=== PATIENT | female | born 1980 ===

== ENCOUNTER 2021-06-04 11:54 | Outpatient (REF) | payer OTHER, SELFPAY ==
[2021-06-04 12:58] LABS: Influenza A PCR NEGATIVE (Negative); Influenza B PCR NEGATIVE (Negative); Resp Syncy Virus RNA Qual PCR NEGATIVE (Negative); SARS COV2 PCR INHOUSE NEGATIVE (Negative)
== END 2021-06-04 11:55 | disposition home or self-care (01) ==
LOC: HO.LNP 11:54
PROVIDERS: Visit Provider Internal Medicine
DX: Z20.822 Contact with and (suspected) exposure to COVID-19 (principal); R43.9 Unspecified disturbances of smell and taste
CPT/HCPCS: 0241U

== ENCOUNTER 2021-08-27 08:49 | Outpatient (REF) | payer OTHER, SELFPAY ==
[2021-08-27 11:48] LABS: Hematocrit 41.7 % (37.0-47.0); Hemoglobin 14.3 g/dl (12.0-16.0); Mean Corpuscular HGB Conc 34.3 g/dl (31.0-35.0); Mean Corpuscular Hemoglobin 30.2 pg (27.0-33.0); Mean Corpuscular Volume 88.2 fL (80.0-98.0); Mean Platelet Volume 10.3 fL (9.4-12.3); Platelet Count 258 X10*3/uL (160-400); Red Blood Count 4.73 X10*6/uL (4.20-5.50); Red Cell Distribution Width 12.7 % (11.0-16.0); White Blood Count 8.1 X10*3/uL (4.8-10.8)
[2021-08-27 12:08] LABS: Alanine Aminotransferase 23 U/L (0-31); Alkaline Phosphatase 26 U/L (39-117); Anion Gap 13 (12-20); Aspartate Amino Transferase 23 U/L (5-31); Bilirubin Total 0.6 mg/dL (0.0-1.0); Blood Urea Nitrogen 15 mg/dL (9-16); Calcium 9.4 mg/dL (8.4-10.2); Carbon Dioxide 27 mmol/L (22-29); Chloride 102 mmol/L (96-108); Cholesterol 172 mg/dL; Estimated Glomerular Filt Rate > 60; Glucose Fasting 93 mg/dL (60-99); HDL Cholesterol 36 mg/dL; LDL Cholesterol Calculated 109 mg/dl; Potassium 3.9 mmol/L (3.3-5.1); Sodium 138 mmol/L (135-145); Triglycerides 139 mg/dL
[2021-08-27 12:22] LABS: Creatinine Urine 101.53 mg/dL; Microalbum/Creatinine Ratio Ur 78.7 ug/mg cr
[2021-08-27 12:36] LABS: Appearance Urine CLEAR; Color Urine YELLOW; Glucose Urine UA NEG (NEG); Leukocyte Esterase Urine NEG (NEG); Nitrite Urine NEG (NEG); PH 6.5 (5.0-8.0); Urine Blood NEG (NEG); Urine Ketones NEG (NEG); Urine Protein TRACE MG/DL (NEG-TRACE)
[2021-08-30 14:16] LABS: Anti Nuclear Antibody Pattern Nuclear, Speckled; Anti Nuclear Antibody Screen POSITIVE (NEGATIVE); Anti Nuclear Antibody Titer 1:40 titer
== END 2021-08-27 08:50 | disposition home or self-care (01) ==
LOC: HO.HMGCLDS 08:49
PROVIDERS: PCP Internal Medicine; Visit Provider Internal Medicine
DX: Z00.00 Encounter for general adult medical examination without abnormal findings (principal); I10 Essential (primary) hypertension
CPT/HCPCS: 36415; 80053; 80061; 81003; 82043; 84443; 85027; 86038; 86039

== ENCOUNTER 2021-11-04 08:58 | Outpatient (REF) | payer OTHER, SELFPAY ==
--- NOTE | ~2021-11-04 | US_ITS ---
EXAMINATION: US RETROPERITONEAL LIMITED (RENAL ONLY) CLINICAL INFORMATION: Hypertension. COMPARISON: None TECHNIQUE: Routine grayscale and color Doppler imaging of kidneys is performed. FINDINGS: RIGHT KIDNEY: 11.0 x 3.8 x 5.5 cm (SAG x AP x TRV). The kidney is normal in size, contour, and echogenicity. Renal cortical thickness is normal. No calculi or focal parenchymal lesions. No hydronephrosis. LEFT KIDNEY: 11.1 x 4.9 x 4.8 cm (SAG x AP x TRV). The kidney is normal in size, contour, and echogenicity. Renal cortical thickness is normal. No calculi or focal parenchymal lesions. No hydronephrosis. ON RENAL DOPPLER EXAM: RIGHT KIDNEY: The renal artery velocity proximal segment measures 116 cm/2, midsegment measures 122 cm/2 and distal segment measures 176 cm/second. Average resistive index is less than 0.7. The renal aortic ratio cannot be calculated due to mildly elevated mid aortic velocity of 153 cm/2. LEFT KIDNEY: The renal artery velocity proximal segment measures 138 cm/2, mid segment measures 140 cm/2 and distal segment measures 167 cm/2. The resistive index is less than 0.7. Renal aortic ratio cannot be calculated due to elevated mid aortic velocity. US/US renal BI IMPRESSION: 1. Normal renal ultrasound. 2. Normal Doppler exam both kidneys. No evidence of renal artery stenosis suspected.
--- NOTE | ~2021-11-04 | US_ITS ---
EXAMINATION: US RETROPERITONEAL LIMITED (RENAL ONLY) CLINICAL INFORMATION: Hypertension. COMPARISON: None TECHNIQUE: Routine grayscale and color Doppler imaging of kidneys is performed. FINDINGS: RIGHT KIDNEY: 11.0 x 3.8 x 5.5 cm (SAG x AP x TRV). The kidney is normal in size, contour, and echogenicity. Renal cortical thickness is normal. No calculi or focal parenchymal lesions. No hydronephrosis. LEFT KIDNEY: 11.1 x 4.9 x 4.8 cm (SAG x AP x TRV). The kidney is normal in size, contour, and echogenicity. Renal cortical thickness is normal. No calculi or focal parenchymal lesions. No hydronephrosis. ON RENAL DOPPLER EXAM: RIGHT KIDNEY: The renal artery velocity proximal segment measures 116 cm/2, midsegment measures 122 cm/2 and distal segment measures 176 cm/second. Average resistive index is less than 0.7. The renal aortic ratio cannot be calculated due to mildly elevated mid aortic velocity of 153 cm/2. LEFT KIDNEY: The renal artery velocity proximal segment measures 138 cm/2, mid segment measures 140 cm/2 and distal segment measures 167 cm/2. The resistive index is less than 0.7. Renal aortic ratio cannot be calculated due to elevated mid aortic velocity. US/US renal doppler IMPRESSION: 1. Normal renal ultrasound. 2. Normal Doppler exam both kidneys. No evidence of renal artery stenosis suspected.
== END 2021-11-04 08:59 | disposition home or self-care (01) ==
LOC: HO.US 08:58
PROVIDERS: Visit Provider Internal Medicine
DX: I10 Essential (primary) hypertension (principal)
CPT/HCPCS: 76775; 93975

== ENCOUNTER 2021-11-05 09:19 | Outpatient (REF) | payer OTHER, SELFPAY ==
[2021-11-05 11:32] LABS: Appearance Urine CLEAR; Color Urine YELLOW; Glucose Urine UA NEG (NEG); Leukocyte Esterase Urine 2+ (NEG); Nitrite Urine NEG (NEG); Specific Gravity - Urine <= 1.005 (1.005-1.025); UACC Culture Trigger YES; Urine Blood NEG (NEG); Urine Ketones NEG (NEG); Urine Protein NEG (NEG-TRACE)
[2021-11-05 11:49] LABS: Anion Gap 10 (12-20); Blood Urea Nitrogen 12 mg/dL (9-16); Calcium 8.9 mg/dL (8.4-10.2); Carbon Dioxide 24 mmol/L (22-29); Chloride 105 mmol/L (96-108); Estimated Glomerular Filt Rate > 60; Glucose Random 91 mg/dL (60-115); Potassium 4.2 mmol/L (3.3-5.1); Sodium 135 mmol/L (135-145)
[2021-11-05 11:54] LABS: Bacteria Urine TRACE /LPF; RBC Urine 0 /HPF (0); Squamous Epithelial Cell Urine 1+ /LPF
== END 2021-11-05 09:20 | disposition home or self-care (01) ==
LOC: HO.HMGCLDS 09:19
PROVIDERS: Visit Provider Internal Medicine
DX: I10 Essential (primary) hypertension (principal); R30.0 Dysuria
CPT/HCPCS: 36415; 80048; 81001; 87086

== ENCOUNTER 2022-03-31 10:43 | Outpatient (REF) | payer OTHER, SELFPAY ==
[2022-03-31 14:07] LABS: Alanine Aminotransferase 21 U/L (0-31); Albumin Level 4.1 g/dL (3.5-5.0); Alkaline Phosphatase 20 U/L (39-117); Anion Gap 14 (12-20); Aspartate Amino Transferase 30 U/L (5-31); Bilirubin Total 0.5 mg/dL (0.0-1.0); Blood Urea Nitrogen 13 mg/dL (9-16); C Reactive Protein 0.51 mg/dL (< or = 0.50); Calcium 9.3 mg/dL (8.4-10.2); Carbon Dioxide 26 mmol/L (22-29); Chloride 102 mmol/L (96-108); Estimated Glomerular Filt Rate > 60; Glucose Fasting 88 mg/dL (60-99); Potassium 4.4 mmol/L (3.3-5.1); Sodium 138 mmol/L (135-145); Total Protein 7.9 g/dL (6.5-8.0)
[2022-03-31 14:18] LABS: Rheumatoid Factor < 15.0 IU/mL (<15.0)
[2022-04-04 16:33] LABS: Cyclic Citrullinated Peptide <16 UNITS
[2022-04-05 11:27] LABS: Complement C3 161 mg/dL (83-193)
[2022-04-10 12:47] LABS: Anti Nuclear Antibody Screen POSITIVE (NEGATIVE)
== END 2022-03-31 10:44 | disposition home or self-care (01) ==
LOC: HO.HMGCLDS 10:43
PROVIDERS: PCP Internal Medicine; Visit Provider Internal Medicine
DX: I10 Essential (primary) hypertension (principal); M19.90 Unspecified osteoarthritis, unspecified site
CPT/HCPCS: 36415; 80053; 86038; 86039; 86140; 86160; 86200; 86431

== ENCOUNTER 2022-05-06 07:47 | Outpatient (REF) | payer OTHER, SELFPAY ==
--- NOTE | ~2022-05-06 | MM_ITS ---
EXAMINATION: BONE DENSITOMETRY CLINICAL INDICATION: Other disorders of phosphorus metabolism. COMPARISON: None (current study represents initial baseline exam). TECHNIQUE: Using a YOHO DXA System (software version: 13.1) manufactured by [employer], dual-energy x-ray absorptiometry was performed of the lumbar spine and left hip. The images are of good technical quality. Based on ISCD (International Society for Clinical Densitometry) standards of reporting, Z-scores instead of T-scores are reported in this premenopausal woman. Summary results are attached. FINDINGS: AP SPINE L1-L4: BMD 1.209 g/cm2, T-score 0.2, Z-score -0.3, Z-score within expected range for age. LEFT FEMUR, NECK: BMD 0.726 g/cm2, T-score -2.2, Z-score -2.1, Z-score below expected range for age. LEFT FEMUR, TOTAL: BMD 0.854 g/cm2, T-score -1.2, Z-score -1.3, Z-score within expected range for age. IDENTIFIED RISK FACTORS: None listed. HISTORY OF FRACTURE: None listed. MEDICATIONS: Calcium supplements or multivitamin, vitamin D. MM/XR DEXA axial skeleton IMPRESSION: 1. DIAGNOSIS: Based on the lowest Z-score value of -2.1 in the femoral neck, the patient's bone density is below the expected range for age. 2. 10-YEAR FRACTURE RISK PREDICTION, FRAX: Not performed in this perimenopausal patient. 3. Treatment Recommendations: NOF guidelines recommend consideration for treatment in postmenopausal women and men age 50 and older presenting with the following: -A hip or vertebral (clinical or morphometric) fracture. -T-score less than or equal to -2.5 at the femoral neck or spine after appropriate evaluation to exclude secondary causes. -Low bone mass at the hip or spine and a 10-year fracture probability by FRAX of greater than or equal to 3% for hip fracture or greater than or equal to 20% for major osteoporotic fracture based on the [place] adapted WHO algorithm. 4. Other Recommendations: All treatment decisions require clinical judgment and consideration of individual patient factors, including patient preferences, comorbidities, previous drug use, risk factors not captured in the FRAX model (e.g. frailty, falls, vitamin D deficiency, increased bone turnover, interval significant decline in bone density) and possible under or overestimation of fracture risk by FRAX. Additional medical evaluation for secondary cause of low bone mineral density may be appropriate. FUTURE SCAN RECOMMENDATION: People with diagnosed cases of osteoporosis or at high risk for fracture should have regular bone mineral density tests. For patients eligible for Medicare, routine testing is allowed once every 2 years. The testing frequency can be increased to one year for patients who have rapidly progressing disease, those who are receiving or discontinuing medical therapy to restore bone mass, or have additional risk factors.
--- NOTE | ~2022-05-06 | XR_ITS ---
EXAMINATION: BILATERAL HAND AND WRIST X-RAY CLINICAL INFORMATION: Pain COMPARISON: None TECHNIQUE: 4 views of each hand and wrist FINDINGS: Right: Bone alignment is normal. No fracture or dislocation is seen. Joint spaces are normal. Soft tissues are normal. Left: Bone alignment is normal. No fracture or dislocation is seen. Joint spaces are normal. Soft tissues are normal. XR/XR hand wrist RT IMPRESSION: Unremarkable exam.
--- NOTE | ~2022-05-06 | XR_ITS ---
EXAMINATION: BILATERAL HAND AND WRIST X-RAY CLINICAL INFORMATION: Pain COMPARISON: None TECHNIQUE: 4 views of each hand and wrist FINDINGS: Right: Bone alignment is normal. No fracture or dislocation is seen. Joint spaces are normal. Soft tissues are normal. Left: Bone alignment is normal. No fracture or dislocation is seen. Joint spaces are normal. Soft tissues are normal. XR/XR hand wrist LT IMPRESSION: Unremarkable exam.
[2022-05-06 11:17] LABS: MANUAL DIFF FLAG NO
[2022-05-06 11:24] LABS: Basophils Percent Auto 0.2 % (0-2); Eosinophils Absolute Auto 0.3 X10*3/uL (0.0-0.4); Eosinophils Percent Auto 4.1 % (0-4); Hematocrit 39.1 % (37.0-47.0); Hemoglobin 13.3 g/dl (12.0-16.0); Imm Gran Abs Auto 0.03 X10*3/uL (0.00-0.03); Imm Gran Pct Auto 0.4 % (0.0-0.4); Lymphocytes Absolute Auto 2.3 X10*3/uL (1.2-4.9); Lymphocytes Percent Auto 28.1 % (20-40); Mean Corpuscular Hemoglobin 30.4 pg (27.0-33.0); Mean Corpuscular Volume 89.5 fL (80.0-98.0); Mean Platelet Volume 10.6 fL (9.4-12.3); Monocytes Absolute Auto 0.6 X10*3/uL (0.1-1.2); Monocytes Percent Auto 7.1 % (2-11); Neutrophils Percent Auto 60.1 % (45-73); Platelet Count 253 X10*3/uL (160-400); Red Blood Count 4.37 X10*6/uL (4.20-5.50); Red Cell Distribution Width 12.7 % (11.0-16.0); White Blood Count 8.3 X10*3/uL (4.8-10.8)
[2022-05-06 11:43] LABS: Alanine Aminotransferase 19 U/L (0-31); Albumin Level 3.9 g/dL (3.5-5.0); Alkaline Phosphatase 20 U/L (39-117); Anion Gap 13 (12-20); Aspartate Amino Transferase 18 U/L (5-31); Bilirubin Total 0.5 mg/dL (0.0-1.0); Blood Urea Nitrogen 13 mg/dL (9-16); C Reactive Protein 0.72 mg/dL (< or = 0.50); Calcium 9.4 mg/dL (8.4-10.2); Carbon Dioxide 25 mmol/L (22-29); Chloride 104 mmol/L (96-108); Estimated Glomerular Filt Rate > 60; Glucose Random 97 mg/dL (60-115); Potassium 4.2 mmol/L (3.3-5.1); Sodium 138 mmol/L (135-145); Total Protein 7.4 g/dL (6.5-8.0)
[2022-05-06 11:52] LABS: Thyroid Stimulating Hormone 2.52 uIU/mL (0.32-4.0)
[2022-05-06 12:02] LABS: Erythrocyte Sedimentation Rate 13 MM/HR (0-20)
[2022-05-06 12:12] LABS: Creatinine Urine 132.34 mg/dL; Protein/Creatinine Ratio, Ur 0.07 (<0.2); Total Protein Urine Random 9 mg/dL (<12)
[2022-05-09 18:17] LABS: Thyroglobulin Antibodies <1 IU/mL (< or = 1); Thyroid Peroxidase Antibodies 2 IU/mL (<9)
[2022-05-09 18:56] LABS: IgA 428 mg/dL (47-310); IgG 1819 mg/dL (600-1640); IgM 61 mg/dL (50-300)
[2022-05-09 21:07] LABS: Prot Elec - Albumin 3.9 g/dL (3.8-4.8); Prot Elec - Alpha1 0.3 g/dL (0.2-0.3); Prot Elec - Alpha2 0.6 g/dL (0.5-0.9); Prot Elec - Beta 1 0.5 g/dL (0.4-0.6); Prot Elec - Beta 2 0.5 g/dL (0.2-0.5); Prot Elec - Gamma 1.6 g/dL (0.8-1.7); Prot Elec - Total Protein 7.3 g/dL (6.1-8.1)
[2022-05-10 07:27] LABS: Calcium (PTHI) 8.8 mg/dL (8.6-10.2)
[2022-05-10 12:11] LABS: Anti DNA DS Antibody 19 IU/mL; Antibody to SS-A Antigen <1.0 NEG AI (<1.0 NEG); Antibody to SS-B Antigen <1.0 NEG AI (<1.0 NEG); SM/Ribonucleoprotein Ab <1.0 NEG AI (<1.0 NEG); Smith Protein <1.0 NEG AI (<1.0 NEG)
[2022-05-10 13:07] LABS: Mitochondrial Antibodies NEGATIVE (NEGATIVE)
[2022-05-10 13:11] LABS: Smooth Muscle Antibody <20 U (<20)
[2022-05-10 23:33] LABS: Alkaline Phosphatase Bone 2.5 mcg/L (5.0-18.8)
[2022-05-10 23:47] LABS: Beta-2 Glycoprotein IgA <2.0 U/mL (<20.0); Beta-2 Glycoprotein IgG <2.0 U/mL (<20.0); Beta-2 Glycoprotein IgM <2.0 U/mL (<20.0)
[2022-05-11 05:52] LABS: Aldolase 3.9 U/L (<=8.1)
[2022-05-11 12:23] LABS: Vitamin B6 31.4 ng/mL (2.1-21.7)
[2022-05-11 13:56] LABS: Liver Kidney Microsomal Ab <=20.0 U (<=20.0)
[2022-05-11 15:52] LABS: Vitamin D 25-OH, D2 <4 ng/mL; Vitamin D 25-OH, D3 34 ng/mL; Vitamin D 25-OH, Total 34 ng/mL (30-100)
[2022-05-11 17:06] LABS: VITAMIN D (1,25 OH) D3 81 pg/mL; Vit D (1,25-Dihydroxy) Total 81 pg/mL (18-72); Vitamin D (1,25 OH) D2 <8 pg/mL
[2022-05-12 06:05] LABS: Cardiolipin IgG Ab <2.0 GPL-U/mL; Cardiolipin IgM Ab <2.0 MPL-U/mL
== END 2022-05-06 07:48 | disposition home or self-care (01) ==
LOC: HO.MAMMO 07:47
PROVIDERS: PCP Internal Medicine; Visit Provider Student in an Organized Health Care Education/Training Program
DX: Z13.21 Encounter for screening for nutritional disorder (principal); R76.8 Other specified abnormal immunological findings in serum; E83.39 Other disorders of phosphorus metabolism; M25.542 Pain in joints of left hand; M25.541 Pain in joints of right hand
CPT/HCPCS: 36415; 73110; 73130; 77080; 80053; 82085; 82306; 82550; 82652; 82784; 83735; 83970; 84075; 84100; 84156; 84165; 84207; 84443; 85025; 85652; 86015; 86140; 86146; 86147; 86225; 86235; 86255; 86256; 86334; 86376; 86800

== ENCOUNTER 2022-06-20 11:43 | Outpatient (REF) | payer OTHER, SELFPAY ==
--- NOTE | ~2022-06-20 | XR_ITS ---
EXAMINATION: XR FOOT, LEFT CLINICAL INFORMATION: Pain. COMPARISON: None TECHNIQUE: AP, lateral, and oblique views of the left foot. FINDINGS: Bony alignment and mineralization are normal. No fracture, dislocation or left ankle joint effusion is seen. Boehler's angle is normal. There are tiny posterior and plantar calcaneal spurs. No focal soft tissue swelling, gas or foreign body is seen. XR/XR foot LT min 3V IMPRESSION: 1. No left ankle fracture, dislocation or effusion is noted. 2. There are tiny left calcaneal posterior plantar spurs.
== END 2022-06-20 11:44 | disposition home or self-care (01) ==
LOC: HO.XRAY 11:43
PROVIDERS: PCP Internal Medicine; Visit Provider Internal Medicine
DX: M79.672 Pain in left foot (principal)
CPT/HCPCS: 73630

== ENCOUNTER 2022-07-18 09:01 | Outpatient (REF) | payer OTHER, SELFPAY ==
--- NOTE | ~2022-07-18 | US_ITS ---
EXAMINATION: US THYROID CLINICAL INFORMATION: Nontoxic goiter, unspecified. COMPARISON: None TECHNIQUE: Linear transducer llamas-scale and color Doppler examination with attention to the region of the thyroid. FINDINGS: SIZE: Measurements of the thyroid lobes and nodules are given in sagittal, anteroposterior and transverse dimensions respectively. Right Thyroid Lobe: 4.11 x 1.01 x 1.12 cm, volume 2.42 mL. Parenchyma: The gland echotexture is homogeneous. Thyroid vascularity is normal. Left Thyroid Lobe: 4.02 x 1.03 x 1.46 cm, volume 3.17 mL. Parenchyma: The gland echotexture is homogeneous. Thyroid vascularity is normal. Isthmus: 0.42 cm in maximum AP dimension. Estimated total number of nodules greater than or equal to 1 cm: 0. Hand Potter nodules are described as follows: 1. Location: Right inferior. Size: 0.21 x 0.18 x 0.16 cm, volume 0.003 mL. Nodule characteristics: Composition: Cystic(0). ACR TI-RADS total points: 0 ACR TI-RADS category: 1 NODES: No lymphadenopathy is seen in the tissue surrounding the thyroid gland. US/US thyroid IMPRESSION: Normal ultrasound of the thyroid gland except for subcentimeter nonsuspicious small nodule right lobe. ACR TI-RADS RECOMMENDATION REFERENCE: Ultrasound-guided fine-needle aspiration, followup ultrasound, no further follow up. * TR1 (0 point) and TR 2 (2 points): No FNA or follow up. * TR3 (3 points): FNA if more than or equal to 2.5 cm in maximum dimension, followup ultrasound in 1, 3 and 5 years if 1.5 to 2.4 cm in maximum dimension. * TR4 (4-6 points): FNA if more than or equal to 1.5 cm in maximum dimension, followup ultrasound in 1, 2, 3 and 5 years if 1 to 1.4 cm in maximum dimension. * TR5 (more than or equal to 7 points): FNA if more than or equal to 1 cm in maximum dimension, followup ultrasound every year for 5 years if 0.5 to 0.9 cm in maximum dimension. * TR3, TR4 or TR5 nodules that are below the size threshold for followup receive no follow up.
== END 2022-07-18 09:02 | disposition home or self-care (01) ==
LOC: HO.HMGCX 09:01
PROVIDERS: PCP Internal Medicine; Visit Provider Internal Medicine
DX: E04.9 Nontoxic goiter, unspecified (principal)
CPT/HCPCS: 76536

== ENCOUNTER → 2022-07-22 12:01 | Outpatient (BNVA) | payer OTHER, SELFPAY | PROVIDERS: PCP Internal Medicine; Visit Provider Dietitian, Registered | DX: E66.9 Obesity, unspecified (principal); Z68.33 Body mass index [BMI] 33.0-33.9, adult | CPT/HCPCS: 97802 ==

== ENCOUNTER 2022-08-03 07:45 | Outpatient (REF) | payer OTHER, SELFPAY ==
[2022-08-03 11:16] LABS: MANUAL DIFF FLAG NO
[2022-08-03 11:25] LABS: Basophils Percent Auto 0.4 % (0-2); Eosinophils Absolute Auto 0.3 X10*3/uL (0.0-0.4); Eosinophils Percent Auto 3.7 % (0-4); Hematocrit 39.4 % (37.0-47.0); Hemoglobin 13.4 g/dl (12.0-16.0); Imm Gran Abs Auto 0.03 X10*3/uL (0.00-0.03); Imm Gran Pct Auto 0.3 % (0.0-0.4); Lymphocytes Absolute Auto 2.3 X10*3/uL (1.2-4.9); Lymphocytes Percent Auto 25.2 % (20-40); Mean Corpuscular Hemoglobin 30.3 pg (27.0-33.0); Mean Corpuscular Volume 89.1 fL (80.0-98.0); Mean Platelet Volume 10.4 fL (9.4-12.3); Monocytes Absolute Auto 0.7 X10*3/uL (0.1-1.2); Monocytes Percent Auto 7.9 % (2-11); Neutrophils Absolute Auto 5.7 x10*3/uL (2.0-8.3); Neutrophils Percent Auto 62.5 % (45-73); Platelet Count 242 X10*3/uL (160-400); Red Blood Count 4.42 X10*6/uL (4.20-5.50); Red Cell Distribution Width 12.6 % (11.0-16.0)
[2022-08-03 11:43] LABS: Appearance Urine Turbid; Color Urine Yellow; Glucose Urine UA Negative (Negative); Leukocyte Esterase Urine Negative (Negative); Nitrite Urine Negative (Negative); PH 5.5 (5.0-9.0); Specific Gravity - Urine 1.025 (1.005-1.025); Urine Blood Negative (Negative); Urine Ketones Negative (Negative); Urine Protein Negative (Neg-Trace)
[2022-08-03 11:47] LABS: Bacteria Urine None Seen (None Seen); Hyaline Casts Urine 0-2 /LPF (0-2); RBC Urine 0-2 /HPF (0-2); Squamous Epithelial Cell Urine 0-2 /HPF (0-2); WBC Urine 0-5 /HPF (0-5)
[2022-08-03 11:49] LABS: Alanine Aminotransferase 14 U/L (0-31); Albumin Level 4.1 g/dL (3.5-5.0); Alkaline Phosphatase 19 U/L (39-117); Anion Gap 11 (12-20); Aspartate Amino Transferase 20 U/L (5-31); Bilirubin Total 0.6 mg/dL (0.0-1.0); Blood Urea Nitrogen 17 mg/dL (9-16); C Reactive Protein 0.49 mg/dL (< or = 0.50); Calcium 9.1 mg/dL (8.4-10.2); Carbon Dioxide 25 mmol/L (22-29); Chloride 105 mmol/L (96-108); Estimated Glomerular Filt Rate > 60; Glucose Random 91 mg/dL (60-115); Potassium 4.2 mmol/L (3.3-5.1); Sodium 137 mmol/L (135-145); Total Protein 7.5 g/dL (6.5-8.0)
[2022-08-03 12:06] LABS: Erythrocyte Sedimentation Rate 8 MM/HR (0-20)
[2022-08-03 12:12] LABS: Creatinine Urine 155.58 mg/dL; Protein/Creatinine Ratio, Ur 0.06 (<0.2); Total Protein Urine Random 9 mg/dL (<12)
[2022-08-04 22:58] LABS: Complement C3 155 mg/dL (83-193)
[2022-08-06 04:44] LABS: Anti DNA DS Antibody 16 IU/mL
== END 2022-08-03 07:46 | disposition home or self-care (01) ==
LOC: HO.HMGCLDS 07:45
PROVIDERS: PCP Internal Medicine; Visit Provider Student in an Organized Health Care Education/Training Program
DX: M32.9 Systemic lupus erythematosus, unspecified (principal)
CPT/HCPCS: 36415; 80053; 81001; 84156; 85025; 85652; 86140; 86160; 86225

== ENCOUNTER → 2022-08-18 08:05 | Outpatient (BNVA) | payer OTHER, SELFPAY | PROVIDERS: PCP Internal Medicine; Visit Provider Student in an Organized Health Care Education/Training Program | DX: M32.9 Systemic lupus erythematosus, unspecified (principal) ==

== ENCOUNTER 2022-10-20 07:24 | Outpatient (REF) | payer OTHER, SELFPAY ==
[2022-10-20 11:25] LABS: MANUAL DIFF FLAG NO
[2022-10-20 11:46] LABS: Appearance Urine Clear; Color Urine Yellow; Glucose Urine UA Negative (Negative); Leukocyte Esterase Urine Trace (Negative); Nitrite Urine Negative (Negative); UMIC TRIGGER UA YES; Urine Blood Negative (Negative); Urine Ketones Negative (Negative); Urine Protein Negative (Neg-Trace)
[2022-10-20 11:50] LABS: Bacteria Urine None Seen (None Seen); Hyaline Casts Urine 0-2 /LPF (0-2); WBC Urine 0-5 /HPF (0-5)
[2022-10-20 12:03] LABS: Basophils Percent Auto 0.3 % (0-2); Eosinophils Absolute Auto 0.3 X10*3/uL (0.0-0.4); Eosinophils Percent Auto 3.5 % (0-4); Hematocrit 39.9 % (37.0-47.0); Hemoglobin 13.5 g/dl (12.0-16.0); Imm Gran Abs Auto 0.04 X10*3/uL (0.00-0.03); Imm Gran Pct Auto 0.4 % (0.0-0.4); Lymphocytes Absolute Auto 2.7 X10*3/uL (1.2-4.9); Lymphocytes Percent Auto 28.6 % (20-40); Mean Corpuscular HGB Conc 33.8 g/dl (31.0-35.0); Mean Corpuscular Hemoglobin 30.1 pg (27.0-33.0); Mean Corpuscular Volume 88.9 fL (80.0-98.0); Mean Platelet Volume 10.1 fL (9.4-12.3); Monocytes Absolute Auto 0.8 X10*3/uL (0.1-1.2); Monocytes Percent Auto 8.2 % (2-11); Neutrophils Absolute Auto 5.6 x10*3/uL (2.0-8.3); Platelet Count 244 X10*3/uL (160-400); Red Blood Count 4.49 X10*6/uL (4.20-5.50); Red Cell Distribution Width 12.6 % (11.0-16.0); White Blood Count 9.4 X10*3/uL (4.8-10.8)
[2022-10-20 16:03] LABS: Alanine Aminotransferase 14 U/L (0-31); Albumin Level 3.7 g/dL (3.5-5.0); Alkaline Phosphatase 18 U/L (39-117); Anion Gap 13 (12-20); Aspartate Amino Transferase 18 U/L (5-31); Bilirubin Total 0.3 mg/dL (0.0-1.0); Blood Urea Nitrogen 16 mg/dL (9-16); Calcium 8.9 mg/dL (8.4-10.2); Carbon Dioxide 24 mmol/L (22-29); Chloride 105 mmol/L (96-108); Cholesterol 147 mg/dL; Estimated Glomerular Filt Rate > 60; Glucose Fasting 91 mg/dL (60-99); HDL Cholesterol 40 mg/dL; LDL Cholesterol Calculated 85 mg/dl; Potassium 4.2 mmol/L (3.3-5.1); Sodium 138 mmol/L (135-145); Total Protein 6.8 g/dL (6.5-8.0); Triglycerides 110 mg/dL
[2022-10-20 16:10] LABS: TSH reflex Free T4 2.44 uIU/mL (0.32-4.0); Vitamin D 25-OH Total 29.9 ng/mL (>30)
== END 2022-10-20 07:25 | disposition home or self-care (01) ==
LOC: HO.HMGCLDS 07:24
PROVIDERS: PCP Internal Medicine; Visit Provider Internal Medicine
DX: Z00.00 Encounter for general adult medical examination without abnormal findings (principal); E55.9 Vitamin D deficiency, unspecified; I10 Essential (primary) hypertension
CPT/HCPCS: 36415; 80053; 80061; 81001; 82306; 84443; 85025

== ENCOUNTER 2022-12-15 11:02 | Outpatient (REF) | payer OTHER, SELFPAY ==
[2022-12-15 12:28] LABS: MANUAL DIFF FLAG NO
[2022-12-15 12:49] LABS: Basophils Percent Auto 0.3 % (0-2); Eosinophils Absolute Auto 0.2 X10*3/uL (0.0-0.4); Eosinophils Percent Auto 2.7 % (0-4); Hematocrit 40.3 % (37.0-47.0); Hemoglobin 13.9 g/dl (12.0-16.0); Imm Gran Abs Auto 0.03 X10*3/uL (0.00-0.03); Imm Gran Pct Auto 0.3 % (0.0-0.4); Lymphocytes Absolute Auto 2.4 X10*3/uL (1.2-4.9); Lymphocytes Percent Auto 26.6 % (20-40); Mean Corpuscular HGB Conc 34.5 g/dl (31.0-35.0); Mean Corpuscular Hemoglobin 30.6 pg (27.0-33.0); Mean Corpuscular Volume 88.8 fL (80.0-98.0); Mean Platelet Volume 10.1 fL (9.4-12.3); Monocytes Absolute Auto 0.7 X10*3/uL (0.1-1.2); Monocytes Percent Auto 8.3 % (2-11); Neutrophils Absolute Auto 5.5 x10*3/uL (2.0-8.3); Neutrophils Percent Auto 61.8 % (45-73); Platelet Count 247 X10*3/uL (160-400); Red Blood Count 4.54 X10*6/uL (4.20-5.50); Red Cell Distribution Width 12.8 % (11.0-16.0)
[2022-12-15 13:24] LABS: Alanine Aminotransferase 12 U/L (0-31); Albumin Level 4.1 g/dL (3.5-5.0); Alkaline Phosphatase 21 U/L (39-117); Anion Gap 11 (12-20); Aspartate Amino Transferase 16 U/L (5-31); Bilirubin Total 0.6 mg/dL (0.0-1.0); Blood Urea Nitrogen 14 mg/dL (9-16); C Reactive Protein 0.61 mg/dL (< or = 0.50); Calcium 9.9 mg/dL (8.4-10.2); Carbon Dioxide 28 mmol/L (22-29); Chloride 104 mmol/L (96-108); Estimated Glomerular Filt Rate > 60; Glucose Random 90 mg/dL (60-115); Lipase 38 U/L (8-78); Potassium 4.2 mmol/L (3.3-5.1); Sodium 139 mmol/L (135-145); Total Protein 7.8 g/dL (6.5-8.0)
[2022-12-15 13:33] LABS: Erythrocyte Sedimentation Rate 11 MM/HR (0-20)
[2022-12-15 13:52] LABS: Appearance Urine Clear; Color Urine Yellow; Glucose Urine UA Negative (Negative); Leukocyte Esterase Urine Small (1+) (Negative); Nitrite Urine Negative (Negative); UMIC TRIGGER UA YES; Urine Blood Negative (Negative); Urine Ketones Negative (Negative); Urine Protein Negative (Neg-Trace)
[2022-12-15 13:57] LABS: Folate 12.5 ng/mL (> or = 4.0); Vitamin B12 538 pg/mL (200-900)
[2022-12-15 14:18] LABS: Bacteria Urine None Seen (None Seen); Hyaline Casts Urine 0-2 /LPF (0-2); RBC Urine 0-2 /HPF (0-2); WBC Urine 0-5 /HPF (0-5)
[2022-12-15 15:29] LABS: Creatinine Urine 124.96 mg/dL; Total Protein Urine Random < 7 mg/dL (<12)
[2022-12-17 03:49] LABS: Complement C3 158 mg/dL (83-193)
[2022-12-18 11:27] LABS: H Pylori Breath Test Negative (Negative)
[2022-12-19 17:29] LABS: Anti DNA DS Antibody 19 IU/mL
[2022-12-22 08:43] LABS: Transglutaminase Ab IgG 1.6 U/mL; Transglutaminase IgA <1.0 U/mL
== END 2022-12-15 11:03 | disposition home or self-care (01) ==
LOC: HO.LAB 11:02
PROVIDERS: Student in an Organized Health Care Education/Training Program; PCP Internal Medicine; Visit Provider Nurse Practitioner Family
DX: R10.9 Unspecified abdominal pain (principal); R31.29 Other microscopic hematuria; M32.9 Systemic lupus erythematosus, unspecified; R19.7 Diarrhea, unspecified
CPT/HCPCS: 36415; 80053; 81001; 82607; 82746; 83013; 83690; 84156; 85025; 85652; 86140; 86160; 86225; 86364

== ENCOUNTER 2023-03-24 07:45 | Outpatient (AMB) | payer OTHER, SELFPAY ==
--- NOTE | 2023-03-24 07:52 | MHC.OFFVIS ---
Intake Vital Signs 03/24/23 07:53 Height 5 ft 3 in Weight 191 lb 12.835 oz BMI 34.0 BP 129/82 Blood Pressure Location Rt brachial Position Sitting Pulse 72 Pulse Source Palpation Temp 97.7 F Temp Source Temporal Artery Scan Intake Visit Reasons: SLE Allergies Sulfa (Sulfonamide Antibiotics) [SULFA (SULFONAMIDE ANTIBIOTICS)] Allergy (Unknown, Verified 12/15/22 11:08) HIVES Medication List - Last Reconciled 03/24/23 by Anne Yang MD acetaminophen (Tylenol Extra Strength) 1,000 mg PO Q6H PRN albuterol sulfate 90 mcg/actuation 1 inh inhalation QID PRN ascorbic acid (vitamin C) mg PO DAILY cholecalciferol (vitamin D3) 25 mcg PO DAILY famotidine (Pepcid) 20 mg PO BEDTIME magnesium oxide 400 mg PO DAILY melatonin 10 mg PO BEDTIME PRN olmesartan 20 mg PO DAILY polyethylene glycol 3350 (Miralax) 17 grams PO DAILY HPI HPI Comments History of Present Illness Details 42-year-old female with mild lupus presents for follow-up. Patient continues to have pain in her fingers, ankles, knees. Usually worse in the morning and associated with swelling of her fingers. Morning stiffness lasts 1 hour then improves throughout the day. She does not take any medications for the pain. She denies any skin rashes. Denies any mouth ulcers or blood or frothy in the urine. She states that feels she is urinating less than before despite drinking the same amount of water. She feels that her ears are stuffy. She mentioned that back in [place] she will go to physicians that would clean her ears of wax. I advised patient to follow-up with her PCP. Initial history: This is a 41-year-old female with a past medical history of hypertension and seasonal allergies was referred for evaluation of a positive HELEN. Patient has been evaluated by Rheumatology before for positive HELEN but no diagnosis or medication was started. Her mother had SLE and at 46. She has had intermittent pain and swelling of her hands over the last few years with varying severity. She has pain swelling and stiffness of her fingers mostly in the morning. Morning stiffness last at least 1 hour. She had to change her ring size last month as it became too tight. Over the last few months or so she has been having worsening fatigue, she was diagnosed with COVID in November and since then she has had fatigue. She also has bilateral knee pain worse with going up and down the stairs. She also has random pain of her calf muscles. Denies any significant muscle weakness. She mentions having some skin rash on her face. Denies photosensitivity. She has dry mouth in the morning which improves throughout the day. Patient denies Raynaud's, photosensitivity, oral or nasal ulcers, , fevers, alopecia, history of miscarriage. [facility] Medical History Annual physical exam Dysuria Goiter Hypertension Left foot pain Migraines Normal pelvic exam Obesity Overweight Seasonal allergies Vitamin D deficiency Surgical History Hx of hernia repair Hx of tubal ligation Family History Mother Lupus Hypertension Father Hypertension High cholesterol Diabetes Maternal Aunt Osteoporosis Social History Household Members Other:: , 3 children 24-13, works in [employer] Housing: House Alcohol intake: current Alcohol intake frequency: holidays/special occasions only Patient Tobacco Use Status: Never used Tobacco e-Cigarette/Vaping Use: Never Used Current occupational status: employed 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 Cognitive needs: No Hearing needs: No Vision needs: No Review of Systems Musc Reports arthralgias, Reports joint swelling and Reports stiffness Skin/Breast Denies rash Physical Exam Const General: cooperative, healthy appearing, no acute distress and well developed Nutritional Appearance: obese Limitations: no limitations HEENT Other: Mildly erythematous right ear canal Head: Yes normocephalic and Yes atraumatic Mouth: moist mucous membranes Neck Neck: Yes no lymphadenopathy, Yes trachea midline and Yes supple Resp Effort & Inspection: normal respiratory effort and able to speak in complete sentences Auscultation: clear to auscultation bilaterally Cardio Rate: regular rate Rhythm: regular rhythm Heart sounds: S1 normal heart sound present and S2 normal heart sound present GI Inspection: No distended Palpation (GI): Soft to palpation and nontender Skin General skin exam: no rashes or lesions noted Extrem Other: Normal nailfold capillaroscopy, no synovitis, no tender joints Psych Affect: Anxious affect present Assessment & Plan Assessment & Plan (1) SLE (systemic lupus erythematosus): Comment: Diagnosed 05/2022 +ve HELEN, + dsDNA, arthralgias, fatigue, skin rashes Started on Plaquenil 05/2022 DC 08/2022 due to GI upset Code(s): M32.9 - Systemic lupus erythematosus, unspecified Qualifiers: Systemic lupus erythematosus type: other Plan: This is a 42-year-old female with mild SLE (positive HELEN 1-40 speckled and 1-320 cytoplasmic fibrillar pattern, +ve DsDNA, fatigue, arthralgias, skin rashes) ? strong family history of SLE in her mother, aunts and cousins.? Started hydroxychloroquine 05/2022. Patient states she feels somewhat better overall but prefers not to take medications. Discontinue 09/05. She continues to have arthralgias of hands, fingers, ankles, worse in the morning associated with swelling and morning stiffness. Continues to have mildly elevated CRP. I explained that there is no compelling indication to continue with hydroxychloroquine at this point. There is no organ damage, there are no cytopenias, hematuria, proteinuria. Labs before next visit in 6 months (2) Abnormal alkaline phosphatase test: Code(s): R74.8 - Abnormal levels of other serum enzymes Plan: Persistently low alk-phos level, with low bone specific alk loss and increased vitamin B6 level. DEXA scan shows low Z-score. 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 Patient's with hypophosphatasia can sometimes develop musculoskeletal symptoms, however she lacks any history of fractures or dental complications. She was evaluated by endocrinology and a genetic test was suggested but patient is hesitant about going through with it. (3) Otitis externa: Code(s): H60.90 - Unspecified otitis externa, unspecified ear Qualifiers: Laterality: right Plan: Prescribed antibiotic/steroid ear drops Plan I spent 46 minutes reviewing patient's chart, evaluating patient, ordering diagnostic workup, counseling patient and documenting in the chart Orders: Orders Anti DNA DS Antibody 6 Months M32.9 - Systemic lupus erythematosus, unspecified Complement C3 6 Months M32.9 - Systemic lupus erythematosus, unspecified Complement C4 6 Months M32.9 - Systemic lupus erythematosus, unspecified C Reactive Protein 6 Months M32.9 - Systemic lupus erythematosus, unspecified Erythrocyte Sedimentation Rate 6 Months M32.9 - Systemic lupus erythematosus, unspecified UA w Microscopic 6 Months M32.9 - Systemic lupus erythematosus, unspecified Complete Blood Count Auto Diff 6 Months M32.9 - Systemic lupus erythematosus, unspecified Comprehensive Met. Panel 6 Months M32.9 - Systemic lupus erythematosus, unspecified Medications: New [id number] 3.5-10,000-1 mg/mL-unit/mL-% use for 5 days 4 drps otic (ear) right Q8H 10 mL 0RF Coding Level of Care Code Est Pt Level 5 (99711) Diagnoses SLE (systemic lupus erythematosus) M32.9 Systemic lupus erythematosus type: other Abnormal alkaline phosphatase test R74.8 Otitis externa H60.90 Laterality: right
[2023-03-24 07:53] VITALS: BP 129/82; PULSE 72; TEMP 36.5; BMI 34.0
== END 2023-03-24 08:23 | disposition home or self-care (01) ==
PROVIDERS: PCP Internal Medicine; Visit Provider Student in an Organized Health Care Education/Training Program
DX: M32.9 Systemic lupus erythematosus, unspecified (principal); R74.8 Abnormal levels of other serum enzymes; H60.91 Unspecified otitis externa, right ear
CPT/HCPCS: 99215

== ENCOUNTER → 2023-03-24 07:45 | Outpatient (BNVA) | payer OTHER, SELFPAY | PROVIDERS: PCP Internal Medicine; Visit Provider Student in an Organized Health Care Education/Training Program ==

== ENCOUNTER 2023-04-19 10:58 | Outpatient (AMB) | payer OTHER, SELFPAY ==
[2023-04-19 11:11] VITALS: BP 142/86; PULSE 84; BMI 32.9
--- NOTE | 2023-04-19 11:11 | A.OFFVIS_ITS ---
Intake Vital Signs 04/19/23 11:11 Height 5 ft 3 in Weight 186 lb BMI 32.9 BP 142/86 H Blood Pressure Location Lt brachial Position Sitting Pulse 84 Intake Visit Reasons: 4 Month Follow Up Intake Note: Vicky presents in office as a est.patient for a 4month f/u for abdominal pain PT CC: pt reports having abdominal pain, GERD, metallic taste, constipation pt denies any other GI Issues [facility]ion Weigher Required: No Accompanied by: Self / Same As Patient Allergies Sulfa (Sulfonamide Antibiotics) [SULFA (SULFONAMIDE ANTIBIOTICS)] Allergy (Unknown, Verified 04/19/23 11:12) HIVES HPI 4 Month Follow Up HPI Details LAST VISIT: Diarrhea Patient reports occasional constipation but then she states that she has loose stools. For the most part patient does not feel like she empties her bowels completely even though occasionally she might have to Reports epigastric discomfort and sometimes cramping throughout the whole abdomen. Epigastric discomfort mostly happens at nighttime. Patient denies eating late at night. Will order vitamin-D and B12 levels. Abdominal pain Patient reports abdominal pain mostly in the upper area. Discussed with patient avoiding dietary triggers. Abdomen nontender nondistended. No guarding. Will send patient for CT scan with oral and IV contrast. Will order lipase, transglutaminase. GERD (gastroesophageal reflux disease) Patient reports epigastric discomfort during the night time. I will send a script for famotidine. Patient was encouraged to stop eating late at night. Staying upright for minimal 3 hours after meals discussed with patient. Avoid also dietary triggers and food that might cause to have her symptoms worsen. We will do H pylori breath test in the office today and treat empirically if positive. I will see her in 4 months, sooner on as needed basis. Patient is agreeable to this plan and verbalizes understanding of instructions. She was given the opportunity to ask questions and all questions answered. ? Thank you for allowing me to participate in her care Plan Orders Orders Transglutaminase Ab IgG 12/15/22 R10.9 Transglutaminase IgA 12/15/22 R10.9 Vitamin B12 and Folate 12/15/22 R19.7 Lipase 12/15/[address] abdomen pelvis w IV con 12/15/22 R10.9, R19.7 Creatinine 12/15/22 R10.11 Blood Urea Nitrogen 05/04/23 R10.11 H Pylori Breath Test 12/15/22 Medications New polyethylene glycol 3350 (Miralax) 17 grams PO DAILY 510 grams 2RF magnesium oxide 400 mg PO DAILY 90 caps 2RF K59.04 famotidine (Pepcid) 20 mg PO BEDTIME 90 tabs 3RF K21.9 TODAY'S VISIT Patient is here today for follow-up and to discuss lab results. Patient was unable to get her CT scan as her insurance changed and there was a need to get authorization. Patient continues to have epigastric discomfort. Wakes up during the night with severe dyspepsia. Patient reports occasional dysphagia. Lab results discussed with patient. Patient has no H pylori. Patient denies eating late at night. Patient states that she is avoiding spicy food. Patient reports that she tries to eat healthy. Yesterday she had salad with chicken and vinegrette dressing. Patient reports metallic taste in her mouth. Patient reports that she drinks plenty fluids. She is aware that she needs to lose weight. Patient reports that she is moving her bowels better. Patient reports that sometimes her pain starts in her back specially in the left flank. Reviewed patient's last kidney ultrasound and that was normal. Patient denies any fever or chills. Patient states that she had HIDA scan done in the past and was told that she has gallbladder that is not functioning properly. Patient states that she never was diagnosed with pancreatitis. [facility] Medical History Annual physical exam Dysuria Goiter Hypertension Left foot pain Migraines Normal pelvic exam Obesity Overweight Seasonal allergies Vitamin D deficiency Surgical History Hx of hernia repair Hx of tubal ligation Family History Mother Lupus Hypertension Father Hypertension High cholesterol Diabetes Maternal Aunt Osteoporosis Social History Household Members Other:: , 3 children 24-13, works in [employer] Housing: House Alcohol intake: current Alcohol intake frequency: holidays/special occasions only Patient Tobacco Use Status: Never used Tobacco e-Cigarette/Vaping Use: Never Used Current occupational status: employed 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 Cognitive needs: No Hearing needs: No Vision needs: No Review of Systems Const Denies weight gain and Denies weight loss ENT Reports no additional complaints, Denies dysphagia and Denies odynophagia Card Reports no additional complaints Resp Reports no additional complaints GI Reports abdominal pain (Epigastric, burning), Denies belching, Denies melena, Denies bloating, Denies change in bowel habits, Denies dysphagia, Denies excessive flatus, Reports dyspepsia (Metallic taste), Reports heartburn, Denies diarrhea, Denies loose stools, Denies nausea, Denies odynophagia and Denies vomiting Reports no additional complaints Musc Reports no additional complaints Neuro Reports no additional complaints Psych Reports no additional complaints Endo Reports no additional complaints Physical Exam Vital Signs: Last Vital Signs Pulse 84 04/19/23 11:11 BP 142/86 H 04/19/23 11:11 BMI result Body Mass Index 32.9 Const General: healthy appearing, no acute distress and well developed Nutritional Appearance: obese Orientation/consciousness: patient oriented x3 HEENT Head: Yes normal to inspection, Yes normocephalic and Yes atraumatic Face and sinus: Yes normal facial exam Mouth: Normal oral and palatal mucosa present Throat: Yes posterior oropharynx normal, Yes tonsils normal and Yes uvula midline Eyes General: appearance normal, both eyes and all related structures Neck Neck: Yes normal visual inspection, Yes full ROM and Yes trachea midline Thyroid: Thyroid normal Resp Effort & Inspection: normal respiratory effort, able to speak in complete sentences, no tracheal deviation and symmetric chest movement Auscultation: clear to auscultation bilaterally Cardio Rate: regular rate Heart sounds: S1 normal heart sound present and S2 normal heart sound present GI Inspection: Yes normal to inspection, No distended and Yes obesity Palpation (GI): Soft to palpation, not firm, nontender and No hepatosplenomegaly present Auscultation: normal bowel sounds General: Yes no CVA tenderness Back/Spine/Pelvis Back: no CVA tenderness Skin General skin exam: elasticity normal, turgor normal and dry skin Neuro General: patient oriented x3 Psych Appearance: grossly normal Mental Status: mental status grossly normal Speech and movement: Normal speech and movement present Assessment & Plan Assessment & Plan (1) GERD (gastroesophageal reflux disease): Code(s): K21.9 - Gastro-esophageal reflux disease without esophagitis Qualifiers: Esophagitis presence: esophagitis presence not specified Qualified Code(s): K21.9 - Gastro-esophageal reflux disease without esophagitis Plan: Patient will start pantoprazole 40 mg half an hour before breakfast. Patient can take sucralfate at bedtime. States that Pepcid was not helping. Discussed with patient avoiding dietary triggers in late night snacking. Staying upright for minimum 3 hours after meals discussed with patient patient will be sent for upper endoscopy to further rule out gastritis, duodenitis, gastric or peptic ulcers, esophagitis, H pylori. (2) Abdominal pain: Code(s): R10.9 - Unspecified abdominal pain Qualifiers: Abdominal location: generalized Qualified Code(s): R10.84 - Generalized abdominal pain Plan: Patient reports that her abdominal pain starts sometimes in the back and then and in the front. Patient reports severe bloating. Discussed with patient low FODMAP diet. Could be related to the fact that patient does not empty her bowels completely. However will schedule her for CT scan. Patient had change in her insurance and we were unable to get approval for the testing. (3) IBS (irritable bowel syndrome): Code(s): K58.9 - Irritable bowel syndrome without diarrhea Qualifiers: Irritable bowel syndrome type: without diarrhea Qualified Code(s): K58.9 - Irritable bowel syndrome without diarrhea Plan: Patient reports that she continues to be constipated at times. Continue MiraLax and magnesium. Patient was encouraged to increase fluid intake and activity to promote better bowel motility. Abdominal cramping most likely related to the food that patient eats. Ruling out pancreatitis, cholelithiasis, cholecystitis with CT scan. Unlikely diverticulitis or colitis. Patient does not have diarrhea, no fever or chills. I will see patient after the procedure, sooner as and needed basis. Patient is agreeable to this plan and verbalizes understanding of instructions. She was given the opportunity to ask questions and all questions answered. Thank you for allowing me to participate in her care Medications: New pantoprazole take one tablet half an hour before breakfast 40 mg PO DAILY 30 tabs 2RF K21.9 - Gastro-esophageal reflux disease without esophagitis sucralfate 10 mL PO BEDTIME 400 mL 3RF K21.9 - Gastro-esophageal reflux disease without esophagitis Discontinued famotidine (Pepcid) Discontinued Reason: Doctor's Order 20 mg PO BEDTIME 90 tabs 3RF K21.9 - Gastro-esophageal reflux disease without esophagitis Coding Level of Care Code Est Pt Level 4 (18220) Diagnoses GERD (gastroesophageal reflux disease) K21.9 Esophagitis presence: esophagitis presence not specified Abdominal pain R10.84 Abdominal location: generalized IBS (irritable bowel syndrome) K58.9 Irritable bowel syndrome type: without diarrhea Time Spent (min) 35 Comment 20 minutes spent with patient and additional 15 minutes spent reviewing her records
== END 2023-04-19 11:49 | disposition home or self-care (01) ==
PROVIDERS: PCP Internal Medicine; Visit Provider Nurse Practitioner Family
DX: K21.9 Gastro-esophageal reflux disease without esophagitis (principal); R10.84 Generalized abdominal pain; K58.9 Irritable bowel syndrome, unspecified
CPT/HCPCS: 99214

== ENCOUNTER → 2023-04-19 10:58 | Outpatient (BNVA) | payer OTHER, SELFPAY | PROVIDERS: PCP Internal Medicine; Visit Provider Nurse Practitioner Family ==

== ENCOUNTER 2023-04-28 08:32 | Outpatient (AMB) | payer OTHER, SELFPAY ==
[2023-04-28 08:51] VITALS: BP 120/84; PULSE 76; O2SAT 98; BMI 34.4
--- NOTE | 2023-04-28 08:51 | MHC.PC.OV ---
Vital Signs 04/28/23 08:51 Height 5 ft 3 in Weight 194 lb BMI 34.4 BP 120/84 Blood Pressure Location Lt brachial Position Sitting Pulse 76 Pulse Source Pulse Oximeter Pulse Oximetry (%) 98 Oxygen Delivery Method Room Air Intake Visit Reasons: 6 Month follow up SLE, HTN Intake Note: Pt is here today for 6 months follow up visit on HTN. Allergies Sulfa (Sulfonamide Antibiotics) [SULFA (SULFONAMIDE ANTIBIOTICS)] Allergy (Unknown, Verified 04/28/23 08:52) HIVES Medication List - Last Reconciled 04/28/23 by Melanie Beaulieu MD acetaminophen (Tylenol Extra Strength) 1,000 mg PO Q6H PRN albuterol sulfate 90 mcg/actuation 1 inh inhalation QID PRN ascorbic acid (vitamin C) mg PO DAILY cholecalciferol (vitamin D3) 25 mcg PO DAILY magnesium oxide 400 mg PO DAILY melatonin 10 mg PO BEDTIME PRN icrqcgyb-tqhfcbiga-RB 3.5-10,000-1 mg/mL-unit/mL-% 4 drps otic (ear) right Q8H olmesartan 20 mg PO DAILY pantoprazole 40 mg PO DAILY polyethylene glycol 3350 (Miralax) 17 grams PO DAILY sucralfate 10 mL PO BEDTIME Tobacco use date assessed: 04/28/23 Dental Screening Dental Screen Date: 04/28/23 Did you have a dental visit in the last 12 months?: Yes Did you have a dental problem in the last 6 months where you did not have access to dental care?: No Was dental information given to patient?: Patient has dentist HPI 6 Month follow up SLE, HTN HPI Details Pt presents for f/u HTN, stable on olmesartan. Patient follows up with Rheumatology for positive HELEN but declined taking medications she reports morning stiffness lasting a few minutes. Patient still grieving her mother who a few years ago from lupus but declined seeing counselor or taking medications. [facility] Medical History Annual physical exam Dysuria Goiter Hypertension Left foot pain Migraines Normal pelvic exam Obesity Overweight Seasonal allergies Vitamin D deficiency Surgical History Hx of hernia repair Hx of tubal ligation Family History Mother Lupus Hypertension Father Hypertension High cholesterol Diabetes Maternal Aunt Osteoporosis Social History Household Members Other:: , 3 children 24-13, works in [employer] Housing: House Alcohol intake: current Alcohol intake frequency: holidays/special occasions only Patient Tobacco Use Status: Never used Tobacco e-Cigarette/Vaping Use: Never Used Current occupational status: employed 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 How often do you have a drink containing alcohol?: Never 3. How often do you have six or more drinks on one occasion?: Never Total Score: 0 CLARK-7 AMB Questionnaire CLARK-7 Date CLARK - 7 assessed: 10/26/22 Source: Developed by Drs. Greg Mendoza, Charley Hunter, Ole Edge and colleagues, with an educational teresa from [employer]. Review of Systems Const All systems reviewed & are unremarkable except as noted in HPI and below Reports no additional complaints Eyes Reports no additional complaints ENT Reports no additional complaints Card Reports no additional complaints GI Reports no additional complaints Reports no additional complaints Physical exam (Primary Care) Vital Signs: Last Vital Signs Pulse 76 04/28/23 08:51 BP 120/84 04/28/23 08:51 Pulse Ox 98 04/28/23 08:51 Oxygen Delivery Method Room Air 04/28/23 08:51 BMI result Body Mass Index 34.4 Tobacco/Smoking Status: Tobacco use Status Tobacco use date assessed 04/28/23 04/28/23 08:55 Patient Tobacco Use Status Never used Tobacco 04/28/23 08:55 e-Cigarette/Vaping Use Never Used 04/28/23 08:55 Thrive Assessment: Date of Thrive Assessment Date Thrive assessed 10/26/22 04/28/23 08:55 Const General: no acute distress HENMT Head: Yes normal to inspection Ears: hearing grossly normal bilaterally Face and sinus: Yes normal facial exam Neck Neck: Yes supple Resp Effort & Inspection: normal respiratory effort Auscultation: clear to auscultation bilaterally Cardio Rhythm: regular rhythm Heart sounds: S1 normal heart sound present and S2 normal heart sound present GI Inspection: Yes normal to inspection Palpation (GI): Soft to palpation Percussion: Yes normal to percussion Auscultation: normal bowel sounds Assessment and Plan Assessment & Plan (1) Hypertension: Code(s): I10 - Essential (primary) hypertension Plan: Continue olmesartan follow low sodium diet increase physical activity and return in 6 months for physical (2) Overweight: Code(s): E66.3 - Overweight (3) Annual physical exam: Code(s): Z00.00 - Encounter for general adult medical examination without abnormal findings Orders: Orders Comprehensive [place]. Panel Fast 6 Months E66.3 - Overweight, I10 - Essential (primary) hypertension, Z00.00 - Encounter for general adult medical examination without abnormal findings Complete Blood Count Auto Diff 6 Months E66.3 - Overweight, I10 - Essential (primary) hypertension, Z00.00 - Encounter for general adult medical examination without abnormal findings Lipid Panel 6 Months E66.3 - Overweight, I10 - Essential (primary) hypertension, Z00.00 - Encounter for general adult medical examination without abnormal findings TSH reflex Free T4 6 Months E66.3 - Overweight, I10 - Essential (primary) hypertension, Z00.00 - Encounter for general adult medical examination without abnormal findings Coding Level of Care Code Est Pt Level 3 (15179) Diagnoses Hypertension I10 Overweight E66.3 Annual physical exam Z00.00
== END 2023-04-28 09:40 | disposition home or self-care (01) ==
PROVIDERS: PCP Internal Medicine; Visit Provider Internal Medicine
DX: I10 Essential (primary) hypertension (principal); E66.3 Overweight; Z00.00 Encounter for general adult medical examination without abnormal findings
CPT/HCPCS: 99213

== ENCOUNTER 2023-05-16 11:30 | Day surgery (SDC) | payer OTHER, SELFPAY ==
[2023-05-12 08:04] VITALS: BMI 34.4
--- NOTE | 2023-05-15 12:11 | P.CONAN_ITS ---
Documented by User: Charu Mayen NP 05/15/23 12:11 HPI - Anesthesia Eval Consult details Narrative: 42yo F for Upper Endoscopy PMFSH Active Problems Active Problems: All Active Problems (Updated 04/19/23 @ 16:26 by Naye Rosa, [facility]) Otitis externa (Acute) Abnormal mammogram of right breast (Acute) GERD (gastroesophageal reflux disease) (Acute) Microscopic hematuria (Acute) Otitis media (Acute) Obesity (Acute) Goiter (Acute) Left foot pain (Acute) Vitamin D deficiency (Acute) Long-term use of Plaquenil (Acute) SLE (systemic lupus erythematosus) (Acute) Hypophosphatasia (Acute) Abnormal alkaline phosphatase test (Acute) Encounter for vitamin deficiency screening (Acute) Arthritis (Acute) Dysuria (Acute) Overweight (Acute) Normal pelvic exam (Acute) Migraines (Acute) Hypertension (Acute) Annual physical exam (Acute) Upper respiratory tract infection (Acute) Past Medical History Medical History Annual physical exam Dysuria Goiter Hypertension Left foot pain Migraines Normal pelvic exam Obesity Overweight Seasonal allergies Vitamin D deficiency Family History Family History Mother Lupus Hypertension Father Hypertension High cholesterol Diabetes Maternal Aunt Osteoporosis Surgical History Surgical History Hx of hernia repair Hx of tubal ligation Social History Social History Household Members Other:: , 3 children 24-13, works in [employer] Housing: House Alcohol intake: current Alcohol intake frequency: holidays/special occasions only Patient Tobacco Use Status: Never used Tobacco e-Cigarette/Vaping Use: Never Used Are you DNR?: No Advance Directives: No Advance Directives Information Provided: Yes Nutrition Risks: No Nutritional Risk FDLMP: started yesterday Current occupational status: employed 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 Cognitive needs: No Hearing needs: No Vision needs: No Meds Allergies Allergy/AdvReac Type Severity Reaction Status Date / Time Sulfa (Sulfonamide Allergy Unknown HIVES Verified 05/16/23 12:44 Antibiotics) [SULFA (SULFONAMIDE ANTIBIOTICS)] Home Medications Medication Instructions Recorded Confirmed Last Taken Type ascorbic acid (vitamin C) 500 mg mg PO DAILY 08/27/21 04/28/23 Unknown History capsule cholecalciferol (vitamin D3) 25 25 mcg PO DAILY 08/27/21 04/28/23 Unknown History mcg (1,000 unit) capsule melatonin 10 mg capsule 10 mg PO BEDTIME PRN 08/27/21 04/28/23 Unknown History acetaminophen 500 mg tablet 1,000 mg PO Q6H PRN 04/21/22 04/28/23 Unknown History (Tylenol Extra Strength) Exam Exam Date and Time: May 15, 2023 1211 Height,Weight and Vital Signs: Height 5 ft 3 in Weight 87.997 kg Assessment and Plan Assessment Anesthesia Assessment: Chart Reviewed Documented by User: Adrian Garcia MD 05/16/23 13:12 [facility] Past Medical History Medical History Annual physical exam Dysuria Goiter Hypertension Left foot pain Migraines Normal pelvic exam Obesity Overweight Seasonal allergies Vitamin D deficiency Patient : No Family History Family History Mother Lupus Hypertension Father Hypertension High cholesterol Diabetes Maternal Aunt Osteoporosis Family history of problems with anesthesia: No Surgical History Surgical History Hx of hernia repair Hx of tubal ligation History of Problems with Anesthesia: No Social History Social History Household Members Other:: , 3 children 24-13, works in [employer] Housing: House Alcohol intake: current Alcohol intake frequency: holidays/special occasions only Patient Tobacco Use Status: Never used Tobacco e-Cigarette/Vaping Use: Never Used Are you DNR?: No Advance Directives: No Advance Directives Information Provided: Yes Nutrition Risks: No Nutritional Risk FDLMP: started yesterday Current occupational status: employed 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 Cognitive needs: No Hearing needs: No Vision needs: No Meds Allergies Allergy/AdvReac Type Severity Reaction Status Date / Time Sulfa (Sulfonamide Allergy Unknown HIVES Verified 05/16/23 12:44 Antibiotics) [SULFA (SULFONAMIDE ANTIBIOTICS)] Home Medications Medication Instructions Recorded Confirmed Last Taken Type ascorbic acid (vitamin C) 500 mg mg PO DAILY 08/27/21 04/28/23 Unknown History capsule cholecalciferol (vitamin D3) 25 25 mcg PO DAILY 08/27/21 04/28/23 Unknown History mcg (1,000 unit) capsule melatonin 10 mg capsule 10 mg PO BEDTIME PRN 08/27/21 04/28/23 Unknown History acetaminophen 500 mg tablet 1,000 mg PO Q6H PRN 04/21/22 04/28/23 Unknown History (Tylenol Extra Strength) Exam Airway Mallampati Class: II TM Dist: <=3cm Neck ROM: Full Loose/Missing/Broken Teeth: No Heart: ok Lungs: ok Assessment and Plan Assessment Anesthesia Assessment: Anesthesia Plan Discussed Final Anesthetic Review Family History of Problems with Anesthesia: No History of Problems with Anesthesia: No NPO: Yes ASA Class: III Final Preanesthetic Review: No Changes in Pt Med Stat, Meds/Allgs Chart Reviewed, Consent Obtained/Reviewed and Anes Risks/Benef Reviewed Patient Risk: Intermediate Procedure Risk: Intermediate Anesthetic Plan Anesthetic Plan: MAC: and Agree w/ Assess. and Plan Disposition: Standard PACU
[2023-05-16] MEDS: Lactated Ringers 1,000 ML 100 ML IVCONT (12:37)
[2023-05-16 12:43] VITALS: BP 159/98; PULSE 86; RESP 18; TEMP 36.6; O2SAT 98
--- NOTE | 2023-05-16 13:01 | MHC.SHP ---
Pre-Procedural Eval Section A Date of Service: 05/16/23 The History & Physical has been completed within 30 days and I have reviewed it.: Yes Section B Chief Complaint: reflux disease Allergies: Allergies Allergy/AdvReac Type Severity Reaction Status Date / Time Sulfa (Sulfonamide Allergy Unknown HIVES Verified 05/16/23 12:44 Antibiotics) [SULFA (SULFONAMIDE ANTIBIOTICS)] Plan Diagnosis/Plan: Unchanged I have reviewed the history and physical and performed a pertinent physical examination on my patient. No changes have occurred unless specified. Time Spent With Patient Time: Total time managing care of this patient today ____ minutes.
--- NOTE | 2023-05-16 13:02 | P.OP_ITS ---
Operative Note Operative Note Date of Service: 05/16/23 Narrative: Procedure: Esophagogastroduodenoscopy Endoscopist: Anastacia Arambula MD Indication: GERD Anesthesia Provider: Dr Adrian Garcia Anesthesia Type: MAC ?? EGD Procedure:?? The procedure, indications, preparation and potential complications were reviewed with the patient, who indicated understanding and gave written informed consent to proceed. A physical exam was performed. The endoscope was introduced through the mouth, and advanced to the second part of duodenum. The mucosa was carefully examined on slow withdrawal of the endoscope. The patient tolerated the procedure well. There were no immediate complications.? ? EGD Findings:? * Esophagus:? Normal mucosa noted in the entire esophagus. The Z line was at 36 cm. Middle and lower esophagus forceps biopsies were obtained to rule out eosinophilic esophagitis. * Stomach:? Spontaneous bile refluxate was noted in the body of the stomach with mild underlying erythema. Random cold forceps gastric biopsies were taken to rule out H Pylori infection. * Duodenum:? Normal mucosa was noted in the whole of the examined duodenum. Cold forceps biopsies were taken from duodenal bulb and second portion of the duodenum to rule out celiac sprue. ? EGD Impressions:? * Normal esophagus (biopsy) * Mild bile reflux gastritis (biopsy) * Normal duodenum (biopsy) ?? Recommendations:?? * Follow biopsy results. Our office will call or send a letter with results within 7-10 days. * Consider switching to rabeprazole if sx not improving on pantoprazole * Will benefit from sucralfate * If H pylori +, patient will be prescribed eradication therapy followed by test of cure. * Avoid NSAIDs. Above has been reviewed with the patient.
[2023-05-16 13:36] VITALS: BP 138/82; PULSE 82; RESP 16; TEMP 36.4; O2SAT 96
[2023-05-16 13:51] VITALS: BP 138/99; PULSE 74; RESP 16; TEMP 36.4; O2SAT 100
== END 2023-05-16 14:14 | disposition home or self-care (01) ==
PROVIDERS: PCP Internal Medicine; Visit Provider Internal Medicine
PROC: 0DJ08ZZ Inspection of Upper Intestinal Tract, Via Natural or Artificial Opening Endoscopic (ICD-10-PCS; CPT 43235; principal; 2023-05-16 12:50)
DX: K21.9 Gastro-esophageal reflux disease without esophagitis (principal); R10.84 Generalized abdominal pain; K29.80 Duodenitis without bleeding; K58.9 Irritable bowel syndrome, unspecified; K29.50 Unspecified chronic gastritis without bleeding; I10 Essential (primary) hypertension; E66.9 Obesity, unspecified; Z68.32 Body mass index [BMI] 32.0-32.9, adult; E55.9 Vitamin D deficiency, unspecified; J30.2 Other seasonal allergic rhinitis; Z79.899 Other long term (current) drug therapy; Z88.2 Allergy status to sulfonamides
CPT/HCPCS: 43239; 88305; 88342; J3010

== ENCOUNTER → 2023-05-16 11:30 | Outpatient (BNV) | payer OTHER, SELFPAY | PROVIDERS: PCP Internal Medicine; Visit Provider Internal Medicine | DX: K21.9 Gastro-esophageal reflux disease without esophagitis (principal); K29.60 Other gastritis without bleeding | CPT/HCPCS: 43239 ==

== ENCOUNTER 2023-05-25 08:07 | Outpatient (AMB) | payer OTHER, SELFPAY ==
--- NOTE | 2023-05-25 08:15 | A.OFFVIS_ITS ---
Intake Vital Signs 05/25/23 08:17 Height 5 ft 3 in Weight 191 lb 12.835 oz BMI 34.0 BP 139/86 Blood Pressure Location Lt brachial Position Sitting Pulse 85 Intake Visit Reasons: S/P EGD; Dr. Delcid Intake Note: Vicky presents in the office as a follow up EGD. CC: She states the next day she was feeling weird but she is feeling better. She noticed that twice this month that she ate spinach and her stomach bothers her a lot. She does not know if she is sensitive to that food. Allergies Sulfa (Sulfonamide Antibiotics) [SULFA (SULFONAMIDE ANTIBIOTICS)] Allergy (Unknown, Verified 05/16/23 12:44) HIVES HPI S/P EGD; Dr. Delcid HPI Details LAST VISIT: GERD (gastroesophageal reflux disease) Patient will start pantoprazole 40 mg half an hour before breakfast. Patient can take sucralfate at bedtime. States that Pepcid was not helping. Discussed with patient avoiding dietary triggers in late night snacking. Staying upright for minimum 3 hours after meals discussed with patient patient will be sent for upper endoscopy to further rule out gastritis, duodenitis, gastric or peptic ulcers, esophagitis, H pylori. Abdominal pain Patient reports that her abdominal pain starts sometimes in the back and then a nd in the front. Patient reports severe bloating. Discussed with patient low FODMAP diet. Could be related to the fact that patient does not empty her bowels completely. However will schedule her for CT scan. Patient had change in her insurance and we were unable to get approval for the testing. IBS (irritable bowel syndrome) Patient reports that she continues to be constipated at times. Continue MiraLax and magnesium. Patient was encouraged to increase fluid intake and activity to promote better bowel motility. Abdominal cramping most likely related to the food that patient eats. Ruling out pancreatitis, cholelithiasis, cholecystitis with CT scan. Unlikely diverticulitis or colitis. Patient does not have diarrhea, no fever or chills. I will see patient after the procedure, sooner as and needed basis. Patient is agreeable to this plan and verbalizes understanding of instructions. She was given the opportunity to ask questions and all questions answered. ? UPPER ENDOSCOPY EGD Findings:? * Esophagus:? Normal mucosa noted in the entire esophagus. The Z line was at 36 cm. Middle and lower esophagus forceps biopsies were obtained to rule out eosinophilic esophagitis. * Stomach:? Spontaneous bile refluxate was noted in the body of the stomach with mild underlying erythema. Random cold forceps gastric biopsies were taken to rule out H Pylori infection. * Duodenum:? Normal mucosa was noted in the whole of the examined duodenum. Cold forceps biopsies were taken from duodenal bulb and second portion of the duodenum to rule out celiac sprue. ? EGD Impressions:? * Normal esophagus (biopsy) * Mild bile reflux gastritis (biopsy) * Normal duodenum (biopsy)?? Recommendations:?? * Follow biopsy results. Our office will call or send a letter with results within 7-10 days. * Consider switching to rabeprazole if sx not improving on pantoprazole * Will benefit from sucralfate * If H pylori +, patient will be prescribed eradication therapy followed by test of cure. * Avoid NSAIDs. PATHOLOGY RESULTS: Diagnosis A. Duodenum, biopsy: Duodenal mucosa with predominantly preserved villi and focal mild features of chronic/non-specific duodenitis. B. Stomach, random, biopsy: Gastric body mucosa with focal lamina propria hemorrhage and focal minimal chronic inactive inflammation; negative for H pylori, intestinal metaplasia and dysplasia. C. Esophagus, lower, biopsy: Squamous mucosa with no specific change; no columnar mucosa present D. Esophagus, middle, biopsy: Squamous mucosa with no specific change; no columnar mucosa present PATHOLOGY RESULTS Patient is here today for follow-up to discuss upper endoscopy results. Patient reports that she has been feeling little better, however she still wakes up in the morning with metalic taste in her mouth. Upper endoscopy and biopsy results discussed with patient. Patient is taking sucralfate at bedtime, however she has never started taking pantoprazole as she was waiting for results from upper endoscopy. Patient will start taking it now. Patient reports that depending on what she eats she will have abdominal cramping and discomfort. Patient noticed that eating spinach will cause that. Patient reports that she is moving her bowels well after staying to take MiraLax. Patient denies melena, hematochezia, unintentional weight loss or ribbon like stools. Patient denies nausea or vomiting. Reports occasional dyspepsia depending on what she eats without dysphagia or odynophagia. Patient reports that she has been trying to lose weight and has not been very successful. [facility] Medical History Obesity Goiter Left foot pain Vitamin D deficiency Dysuria Overweight Normal pelvic exam Annual physical exam Hypertension Migraines Seasonal allergies Surgical History (Updated 05/25/23 @ 08:17 by PATRICIA Narayan) History of esophagogastroduodenoscopy (EGD) Hx of tubal ligation Hx of hernia repair Family History Mother Lupus Hypertension Father Hypertension High cholesterol Diabetes Maternal Aunt Osteoporosis Social History Household Members Other:: , 3 children 24-13, works in [employer] Housing: House Alcohol intake: current Alcohol intake frequency: holidays/special occasions only Patient Tobacco Use Status: Never used Tobacco e-Cigarette/Vaping Use: Never Used Current occupational status: employed 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 Cognitive needs: No Hearing needs: No Vision needs: No Review of Systems Const Denies weight gain and Denies weight loss ENT Reports no additional complaints, Denies dysphagia and Denies odynophagia Card Reports no additional complaints Resp Reports no additional complaints GI Denies abdominal pain, Denies belching, Denies melena, Denies bloating, Denies change in bowel habits, Denies dysphagia, Denies excessive flatus, Reports dyspepsia, Reports heartburn, Denies diarrhea, Denies loose stools, Denies nausea, Denies odynophagia and Denies vomiting Reports no additional complaints Musc Reports no additional complaints Neuro Reports no additional complaints Psych Reports no additional complaints Endo Reports no additional complaints Physical Exam Vital Signs: Last Vital Signs Pulse 85 05/25/23 08:17 BP 139/86 05/25/23 08:17 BMI result Body Mass Index 34.0 Const General: healthy appearing, no acute distress and well developed Nutritional Appearance: obese Orientation/consciousness: patient oriented x3 HEENT Head: Yes normal to inspection, Yes normocephalic and Yes atraumatic Face and sinus: Yes normal facial exam Mouth: Normal oral and palatal mucosa present Throat: Yes posterior oropharynx normal, Yes tonsils normal and Yes uvula midline Eyes General: appearance normal, both eyes and all related structures Neck Neck: Yes normal visual inspection, Yes full ROM and Yes trachea midline Thyroid: Thyroid normal Resp Effort & Inspection: normal respiratory effort, able to speak in complete sentences, no tracheal deviation and symmetric chest movement Auscultation: clear to auscultation bilaterally Cardio Rate: regular rate Heart sounds: S1 normal heart sound present and S2 normal heart sound present GI Inspection: Yes normal to inspection, No distended and Yes obesity Palpation (GI): Soft to palpation, not firm, nontender and No hepatosplenomegaly present Auscultation: normal bowel sounds General: Yes no CVA tenderness Back/Spine/Pelvis Back: no CVA tenderness Skin General skin exam: elasticity normal, turgor normal and dry skin Neuro General: patient oriented x3 Psych Appearance: grossly normal Mental Status: mental status grossly normal Assessment & Plan Assessment & Plan (1) GERD (gastroesophageal reflux disease): Code(s): K21.9 - Gastro-esophageal reflux disease without esophagitis Qualifiers: Esophagitis presence: esophagitis presence not specified Qualified Code(s): K21.9 - Gastro-esophageal reflux disease without esophagitis (2) Postprandial abdominal bloating: Code(s): R14.0 - Abdominal distension (gaseous) (3) Constipation: Code(s): K59.00 - Constipation, unspecified Qualifiers: Constipation type: slow transit constipation Qualified Code(s): K59.01 - Slow transit constipation Plan Patient can continue taking sucralfate at bedtime and will start taking pantoprazole will every morning half an hour before breakfast. Patient will continue taking MiraLax to help her move her bowels. Diagnosed with duodenitis and mild gastritis as well as mild gastric reflux. Patient will continue on improving her diet habits. Avoiding dietary triggers. Discussed with patient the importance of avoiding late night snacking. Staying upright for minimal 3 hours after meals discussed with patient. I will see patient in 6 months, sooner on as needed basis. Patient is agreeable to this plan and verbalizes understanding of instructions. She was given the opportunity to ask questions and all questions answered. Thank you for allowing me to participate in her care Medications: Refilled albuterol sulfate 90 mcg/actuation 1 inh inhalation QID PRN 6.7 grams 1RF shortness of breath or wheezing Melanie Beaulieu MD pantoprazole take one tablet half an hour before breakfast 40 mg PO DAILY 30 tabs 4RF K21.9 - Gastro-esophageal reflux disease without esophagitis REUBEN Peters- Coding Level of Care Code Est Pt Level 4 (14186) Diagnoses Gastroesophageal reflux disease, unspecified whether esophagitis present K21.9 Esophagitis presence: esophagitis presence not specified Postprandial abdominal bloating R14.0 Slow transit constipation K59.01 Constipation type: slow transit constipation Time Spent (min) 35 Comment 20 minutes spent with patient and additional 15 minutes spent reviewing her records
[2023-05-25 08:17] VITALS: BP 139/86; PULSE 85; BMI 34.0
== END 2023-05-25 08:59 | disposition home or self-care (01) ==
PROVIDERS: PCP Internal Medicine; Visit Provider Nurse Practitioner Family
DX: K21.9 Gastro-esophageal reflux disease without esophagitis (principal); R14.0 Abdominal distension (gaseous); K59.01 Slow transit constipation
CPT/HCPCS: 99214

== ENCOUNTER → 2023-05-25 08:07 | Outpatient (BNVA) | payer OTHER, SELFPAY | PROVIDERS: PCP Internal Medicine; Visit Provider Nurse Practitioner Family ==

== ENCOUNTER 2023-09-29 07:56 | Outpatient (REF) | payer OTHER, SELFPAY ==
[2023-09-29 11:15] LABS: MANUAL DIFF FLAG NO
[2023-09-29 11:21] LABS: Appearance Urine Clear; Color Urine Yellow; Glucose Urine UA Negative (Negative); Leukocyte Esterase Urine Small (1+) (Negative); Nitrite Urine Negative (Negative); UMIC TRIGGER UA YES; Urine Blood Negative (Negative); Urine Ketones Negative (Negative); Urine Protein Negative (Neg-Trace)
[2023-09-29 11:29] LABS: Bacteria Urine 2+ (None Seen); Hyaline Casts Urine 0-2 /LPF (0-2); RBC Urine 0-2 /HPF (0-2)
[2023-09-29 11:46] LABS: Alanine Aminotransferase 13 U/L (0-31); Alkaline Phosphatase 23 U/L (39-117); Anion Gap 12 (12-20); Aspartate Amino Transferase 19 U/L (5-31); Bilirubin Total 0.3 mg/dL (0.0-1.0); Blood Urea Nitrogen 16 mg/dL (9-16); C Reactive Protein 0.59 mg/dL (< or = 0.50); Calcium 9.2 mg/dL (8.4-10.2); Carbon Dioxide 23 mmol/L (22-29); Chloride 104 mmol/L (96-108); Estimated Glomerular Filt Rate > 60; Glucose Random 87 mg/dL (60-115); Potassium 3.9 mmol/L (3.3-5.1); Sodium 135 mmol/L (135-145); Total Protein 8.1 g/dL (6.5-8.0)
[2023-09-29 12:06] LABS: Erythrocyte Sedimentation Rate 16 MM/HR (0-20)
[2023-09-29 12:13] LABS: Basophils Percent Auto 0.4 % (0-2); Eosinophils Absolute Auto 0.2 X10*3/uL (0.0-0.4); Hematocrit 39.9 % (37.0-47.0); Imm Gran Abs Auto 0.03 X10*3/uL (0.00-0.03); Imm Gran Pct Auto 0.3 % (0.0-0.4); Lymphocytes Absolute Auto 2.5 X10*3/uL (1.2-4.9); Mean Corpuscular HGB Conc 35.1 g/dl (31.0-35.0); Mean Corpuscular Hemoglobin 30.7 pg (27.0-33.0); Mean Corpuscular Volume 87.5 fL (80.0-98.0); Mean Platelet Volume 10.2 fL (9.4-12.3); Monocytes Absolute Auto 0.6 X10*3/uL (0.1-1.2); Monocytes Percent Auto 6.1 % (2-11); Neutrophils Absolute Auto 6.3 x10*3/uL (2.0-8.3); Neutrophils Percent Auto 65.2 % (45-73); Platelet Count 273 X10*3/uL (160-400); Red Blood Count 4.56 X10*6/uL (4.20-5.50); White Blood Count 9.7 X10*3/uL (4.8-10.8)
[2023-10-02 10:14] LABS: Complement C3 167 mg/dL (83-193)
[2023-10-02 21:28] LABS: Anti DNA DS Antibody 18 IU/mL
== END 2023-09-29 07:57 | disposition home or self-care (01) ==
LOC: HO.HMGCLDS 07:56
PROVIDERS: PCP Internal Medicine; Visit Provider Student in an Organized Health Care Education/Training Program
DX: M32.9 Systemic lupus erythematosus, unspecified (principal)
CPT/HCPCS: 36415; 80053; 81001; 85025; 85652; 86140; 86160; 86225

== ENCOUNTER 2023-10-03 09:20 | Outpatient (AMB) | payer OTHER, SELFPAY ==
[2023-10-03 09:23] VITALS: BP 126/74; PULSE 84; TEMP 35.9; O2SAT 97; BMI 32.8
--- NOTE | 2023-10-03 09:23 | MHC.OFFVIS ---
Intake Vital Signs 10/03/23 09:23 Height 5 ft 3 in Weight 184 lb 15.485 oz BMI 32.8 BP 126/74 Blood Pressure Location Rt brachial Position Sitting Pulse 84 Pulse Source Pulse Oximeter Temp 96.7 F L Temp Source Skin Pulse Oximetry (%) 97 Oxygen Delivery Method Room Air Intake Visit Reasons: SLE Intake Note: Patient last seen 03/24/23 presents today for follow up and test results. Reports she had the flu over a week ago and still feels congested. Media Coordinator Required: No Accompanied by: Self / Same As Patient Allergies Sulfa (Sulfonamide Antibiotics) [SULFA (SULFONAMIDE ANTIBIOTICS)] Allergy (Unknown, Verified 10/03/23 09:26) HIVES Medication List - Last Reconciled 10/03/23 by Anne Yang MD acetaminophen (Tylenol Extra Strength) 1,000 mg PO Q6H PRN albuterol sulfate 90 mcg/actuation 1 inh inhalation QID PRN ascorbic acid (vitamin C) mg PO DAILY cholecalciferol (vitamin D3) 50 mcg PO DAILY cyclobenzaprine mg PO PRN magnesium oxide 400 mg PO DAILY melatonin 10 mg PO BEDTIME PRN olmesartan 20 mg PO DAILY pantoprazole 40 mg PO QAM PRN polyethylene glycol 3350 (Miralax) 17 grams PO DAILY PRN sucralfate 10 mL PO BEDTIME HPI HPI Comments History of Present Illness Details 42-year-old female with mild lupus presents for follow-up. She states that she feels about the same overall. Recently she has noticed swelling of her fingers at night and into the morning. She no longer wears her rings. She has morning stiffness of her hands lasting 2 hours in the morning. She gets bilateral knee pain with going up and down the stairs. She denies any skin rashes. Denies any mouth ulcers or blood or frothy in the urine. She had flu-like symptoms last week, she stated that everyone at home was sick. She is having right ear stuffiness. She states that whenever she get sick with an upper respiratory infection she gets right ear congestion otic eardrops prescribed last visit for similar symptoms were helpful. Initial history: This is a 41-year-old female with a past medical history of hypertension and seasonal allergies was referred for evaluation of a positive HELEN. Patient has been evaluated by Rheumatology before for positive HELEN but no diagnosis or medication was started. Her mother had SLE and at 46. She has had intermittent pain and swelling of her hands over the last few years with varying severity. She has pain swelling and stiffness of her fingers mostly in the morning. Morning stiffness last at least 1 hour. She had to change her ring size last month as it became too tight. Over the last few months or so she has been having worsening fatigue, she was diagnosed with COVID in November and since then she has had fatigue. She also has bilateral knee pain worse with going up and down the stairs. She also has random pain of her calf muscles. Denies any significant muscle weakness. She mentions having some skin rash on her face. Denies photosensitivity. She has dry mouth in the morning which improves throughout the day. Patient denies Raynaud's, photosensitivity, oral or nasal ulcers, , fevers, alopecia, history of miscarriage. [facility] Medical History Obesity Goiter Left foot pain Vitamin D deficiency Dysuria Overweight Normal pelvic exam Annual physical exam Hypertension Migraines Seasonal allergies Surgical History History of esophagogastroduodenoscopy (EGD) Hx of tubal ligation Hx of hernia repair Family History Mother Lupus Hypertension Father Hypertension High cholesterol Diabetes Maternal Aunt Osteoporosis Social History Household Members Other:: , 3 children 24-13, works in [employer] Housing: House Alcohol intake: current Alcohol intake frequency: holidays/special occasions only Patient Tobacco Use Status: Never used Tobacco e-Cigarette/Vaping Use: Never Used Current occupational status: employed 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 Cognitive needs: No Hearing needs: No Vision needs: No Review of Systems ENT Details: Right ear congestion Musc Reports arthralgias, Reports joint swelling and Reports stiffness Skin/Breast Denies rash Physical Exam Vital Signs: Last Vital Signs Temp 96.7 F L 10/03/23 09:23 Pulse 84 10/03/23 09:23 BP 126/74 10/03/23 09:23 Pulse Ox 97 10/03/23 09:23 Oxygen Delivery Method Room Air 02/20/24 09:23 BMI result Body Mass Index 32.8 Const General: cooperative, healthy appearing, no acute distress and well developed Nutritional Appearance: obese Limitations: no limitations HEENT Head: Yes normocephalic and Yes atraumatic Mouth: moist mucous membranes Neck Neck: Yes no lymphadenopathy, Yes trachea midline and Yes supple Resp Effort & Inspection: normal respiratory effort and able to speak in complete sentences Auscultation: clear to auscultation bilaterally Cardio Rate: regular rate Rhythm: regular rhythm Heart sounds: S1 normal heart sound present and S2 normal heart sound present GI Inspection: No distended Palpation (GI): Soft to palpation and nontender Skin General skin exam: no rashes or lesions noted Extrem Other: Normal nailfold capillaroscopy, no synovitis, no tender joints Mildly puffy fingers Results Reviewed Results Reviewed: Laboratory Tests 08/27/21 08/27/21 08/27/21 09:08 09:08 09:08 Alkaline Phosphatase 26 L C-Reactive Protein Microalb/Creat Ratio 78.7 Rheumatoid Factor Cycl Citrul Peptide IgG HELEN Titer 1:40 H HELEN Titer 2 1:320 H Complement C3 Complement C4 03/31/22 03/31/22 03/31/22 10:50 10:50 10:50 Alkaline Phosphatase 20 L D C-Reactive Protein 0.51 H Microalb/Creat Ratio Rheumatoid Factor < 15.0 Cycl Citrul Peptide IgG <16 HELEN Titer 1:320 H HELEN Titer 2 Complement C3 Complement C4 03/31/22 10:50 Alkaline Phosphatase C-Reactive Protein Microalb/Creat Ratio Rheumatoid Factor Cycl Citrul Peptide IgG HELEN Titer HELEN Titer 2 Complement C3 161 Complement C4 32 Assessment & Plan Assessment & Plan (1) SLE (systemic lupus erythematosus): Comment: Diagnosed 05/2022 +ve HELEN, + dsDNA, arthralgias, fatigue, skin rashes Started on Plaquenil 05/2022 DC 08/2022 due to GI upset Code(s): M32.9 - Systemic lupus erythematosus, unspecified Qualifiers: Systemic lupus erythematosus type: other Systemic lupus erythematosus organ involvement: unspecified Qualified Code(s): M32.8 - Other forms of systemic lupus erythematosus Plan: This is a 42-year-old female with mild SLE (positive HELEN 1-40 speckled and 1-320 cytoplasmic fibrillar pattern, +ve DsDNA, fatigue, arthralgias, skin rashes) ? strong family history of SLE in her mother, aunts and cousins.? Started hydroxychloroquine 05/2022. Patient states she feels somewhat better overall but prefers not to take medications. Discontinue 09/05. She continues to have arthralgias of hands, fingers, ankles, worse in the morning associated with swelling and morning stiffness. Continues to have mildly elevated CRP. There is no organ damage, there are no cytopenias, hematuria, proteinuria. Patient prefers not to take any DMARDs. We will continue to watch patient off DMARDs. Labs before next visit in 9 months. Follow-up sooner if needed (2) Abnormal alkaline phosphatase test: Code(s): R74.8 - Abnormal levels of other serum enzymes Plan: Persistently low alk-phos level, with low bone specific alk loss and increased vitamin B6 level. DEXA scan shows low Z-score. 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 Patient's with hypophosphatasia can sometimes develop musculoskeletal symptoms, however she lacks any history of fractures or dental complications. She was evaluated by endocrinology and a genetic test was suggested but patient is hesitant about going through with it. (3) Bilateral primary osteoarthritis of knee: Code(s): M17.0 - Bilateral primary osteoarthritis of knee Plan: Bilateral knee pain likely due to degenerative arthritis. Patient is working on losing weight. Discussed all quadriceps strengthening exercises. Discussed Voltaren gel (4) Otalgia of right ear: Code(s): H92.01 - Otalgia, right ear Plan: Advised patient to use her Flonase nasal spray. If no improvement. Patient can call the office and I will prescribe ear drops. If patient does not improve with eardrops, she should follow-up with ENT Plan I spent 46 minutes reviewing patient's chart, evaluating patient, ordering diagnostic workup, counseling patient and documenting in the chart Orders: Orders Complete Blood Count Auto Diff 9 Months M32.9 - Systemic lupus erythematosus, unspecified Comprehensive Met. Panel 9 Months M32.9 - Systemic lupus erythematosus, unspecified Complement C4 9 Months M32.9 - Systemic lupus erythematosus, unspecified DNA Double Stranded-Crithidia 9 Months M32.9 - Systemic lupus erythematosus, unspecified UA w Microscopic 9 Months M32.9 - Systemic lupus erythematosus, unspecified C Reactive Protein 9 Months M32.9 - Systemic lupus erythematosus, unspecified Erythrocyte Sedimentation Rate 9 Months M32.9 - Systemic lupus erythematosus, unspecified Anti DNA DS Antibody 9 Months M32.9 - Systemic lupus erythematosus, unspecified Complement C3 9 Months M32.9 - Systemic lupus erythematosus, unspecified Protein Creatinine Ratio, Ur 9 Months M32.9 - Systemic lupus erythematosus, unspecified Vitamin D 25-OH (D2 and D3) 9 Months E55.9 - Vitamin D deficiency, unspecified Coding Level of Care Code Est Pt Level 5 (52936) Diagnoses Other forms of systemic lupus erythematosus, unspecified organ involvement status M32.8 Systemic lupus erythematosus type: other Systemic lupus erythematosus organ involvement: unspecified Abnormal alkaline phosphatase test R74.8 Bilateral primary osteoarthritis of knee M17.0 Otalgia of right ear H92.01
== END 2023-10-03 09:47 | disposition home or self-care (01) ==
PROVIDERS: PCP Internal Medicine; Visit Provider Student in an Organized Health Care Education/Training Program
DX: M32.8 Other forms of systemic lupus erythematosus (principal); R74.8 Abnormal levels of other serum enzymes; M17.0 Bilateral primary osteoarthritis of knee; H92.01 Otalgia, right ear
CPT/HCPCS: 99215

== ENCOUNTER → 2023-10-03 09:20 | Outpatient (BNVA) | payer OTHER, SELFPAY | PROVIDERS: PCP Internal Medicine; Visit Provider Student in an Organized Health Care Education/Training Program ==

== ENCOUNTER 2023-10-05 08:59 | Outpatient (AMB) | payer OTHER, SELFPAY ==
[2023-10-05 09:22] VITALS: BP 120/100; PULSE 75; TEMP 36.3; O2SAT 98; BMI 32.4
--- NOTE | 2023-10-05 09:22 | MHC.OFFWIV ---
Intake Vital Signs 10/05/23 09:22 Height 5 ft 3 in Weight 183 lb BMI 32.4 BP 120/100 H Blood Pressure Location Lt brachial Position Sitting Pulse 75 Pulse Source Pulse Oximeter Temp 97.4 F Temp Source Temporal Artery Scan Pulse Oximetry (%) 98 Oxygen Delivery Method Room Air Intake Visit Reasons: EP ?Ear Infection Intake Note: pt is here today for ear infection started 2 week ago Patient Tobacco Use Status: Never used Tobacco Allergies Sulfa (Sulfonamide Antibiotics) [SULFA (SULFONAMIDE ANTIBIOTICS)] Allergy (Unknown, Verified 10/05/23 09:23) HIVES Do you need a note to return to daycare/school/sports/work: No HPI HPI Comments History of Present Illness Details 42 y/o female patient who presents to walk in clinic with c/o right ear pain and infection x 2 weeks. She had a recent URI that cleared. H/o Frequent Ear infections. Denies fevers, chills, nausea or vomiting. [facility] Medical History Obesity Goiter Left foot pain Vitamin D deficiency Dysuria Overweight Normal pelvic exam Annual physical exam Hypertension Migraines Seasonal allergies Surgical History History of esophagogastroduodenoscopy (EGD) Hx of tubal ligation Hx of hernia repair Family History Mother Lupus Hypertension Father Hypertension High cholesterol Diabetes Maternal Aunt Osteoporosis Social History Household Members Other:: , 3 children 24-13, works in [employer] 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 Cognitive needs: No Hearing needs: No Vision needs: No Review of Systems Const All systems reviewed & are unremarkable except as noted in HPI and below Physical Exam Vital Signs: Last Vital Signs Temp 97.4 F 10/05/23 09:22 Pulse 75 10/05/23 09:22 BP 120/100 H 10/05/23 09:22 Pulse Ox 98 10/05/23 09:22 Oxygen Delivery Method Room Air 10/05/23 09:22 BMI result Body Mass Index 32.4 Const General: comfortable and no acute distress HEENT Head: Yes normocephalic and Yes atraumatic Ears: external ears normal and TM abnormal wth effusion (right ear) and erythematous General nose exam: Abnormal mucous membranes and turbinates present boggy and erythematous Face and sinus: Yes sinuses nontender Mouth: moist mucous membranes Throat: Yes posterior oropharynx normal Resp Effort & Inspection: normal respiratory effort and able to speak in complete sentences Auscultation: clear to auscultation bilaterally Cardio Rate: regular rate Rhythm: regular rhythm Assessment & Plan Assessment & Plan (1) Otalgia of right ear: Code(s): H92.01 - Otalgia, right ear Plan: - OTIC ABX - Acetaminophen for pain relief. (2) Allergic rhinitis: Code(s): J30.9 - Allergic rhinitis, unspecified Qualifiers: Allergic rhinitis seasonality: seasonal Allergic rhinitis trigger: unspecified Qualified Code(s): J30.2 - Other seasonal allergic rhinitis Plan: - Used as prescribed Medications: New acetaminophen (Tylenol Extra Strength) 1,000 mg (2 x 500 mg) PO Q6H PRN 30 tabs 0RF pain H92.01 - Otalgia, right ear ciprofloxacin-hydrocortisone 0.2-1 % (Cipro HC) 3 drps otic (ear) right BID 7 days 10 mL 0RF ear pain H92.01 - Otalgia, right ear fluticasone propionate 50 mcg/actuation (Flonase Allergy Relief) 1 spray intranasal BID PRN 16 grams 0RF nasal congestion J30.9 - Allergic rhinitis, unspecified Coding Level of Care Code Est Pt Level 3 (11854) Diagnoses Otalgia of right ear H92.01 Seasonal allergic rhinitis, unspecified trigger J30.2 Allergic rhinitis seasonality: seasonal Allergic rhinitis trigger: unspecified Time Spent (min) 15
== END 2023-10-05 10:19 | disposition home or self-care (01) ==
PROVIDERS: PCP Internal Medicine; Visit Provider Nurse Practitioner Family
DX: H92.01 Otalgia, right ear (principal); J30.2 Other seasonal allergic rhinitis
CPT/HCPCS: 99213

== ENCOUNTER 2023-10-26 08:30 | Outpatient (REF) | payer OTHER, SELFPAY ==
[2023-10-26 11:38] LABS: MANUAL DIFF FLAG NO
[2023-10-26 11:46] LABS: Basophils Percent Auto 0.2 % (0-2); Eosinophils Absolute Auto 0.3 X10*3/uL (0.0-0.4); Eosinophils Percent Auto 2.9 % (0-4); Hematocrit 39.4 % (37.0-47.0); Hemoglobin 13.9 g/dl (12.0-16.0); Imm Gran Abs Auto 0.03 X10*3/uL (0.00-0.03); Imm Gran Pct Auto 0.3 % (0.0-0.4); Lymphocytes Absolute Auto 2.1 X10*3/uL (1.2-4.9); Mean Corpuscular HGB Conc 35.3 g/dl (31.0-35.0); Mean Corpuscular Hemoglobin 30.7 pg (27.0-33.0); Mean Platelet Volume 10.4 fL (9.4-12.3); Monocytes Absolute Auto 0.6 X10*3/uL (0.1-1.2); Monocytes Percent Auto 6.9 % (2-11); Neutrophils Absolute Auto 5.7 x10*3/uL (2.0-8.3); Neutrophils Percent Auto 65.7 % (45-73); Platelet Count 255 X10*3/uL (160-400); Red Blood Count 4.53 X10*6/uL (4.20-5.50); Red Cell Distribution Width 13.1 % (11.0-16.0); White Blood Count 8.7 X10*3/uL (4.8-10.8)
[2023-10-26 12:23] LABS: Alanine Aminotransferase 13 U/L (0-31); Albumin Level 3.9 g/dL (3.5-5.0); Alkaline Phosphatase 20 U/L (39-117); Anion Gap 13 (12-20); Aspartate Amino Transferase 18 U/L (5-31); Bilirubin Total 0.4 mg/dL (0.0-1.0); Blood Urea Nitrogen 13 mg/dL (9-16); Calcium 9.1 mg/dL (8.4-10.2); Carbon Dioxide 25 mmol/L (22-29); Chloride 104 mmol/L (96-108); Cholesterol 141 mg/dL (<200); Estimated Glomerular Filt Rate > 60; Glucose Fasting 87 mg/dL (60-99); HDL Cholesterol 39 mg/dL (>40); LDL Cholesterol Calculated 85 mg/dL (<100); Sodium 138 mmol/L (135-145); Total Protein 7.7 g/dL (6.5-8.0); Triglycerides 85 mg/dL (<150)
[2023-10-26 12:51] LABS: TSH reflex Free T4 2.76 uIU/mL (0.32-4.0)
== END 2023-10-26 08:31 | disposition home or self-care (01) ==
LOC: HO.HMGCLDS 08:30
PROVIDERS: PCP Internal Medicine; Visit Provider Internal Medicine
DX: Z00.00 Encounter for general adult medical examination without abnormal findings (principal); I10 Essential (primary) hypertension; E66.3 Overweight
CPT/HCPCS: 36415; 80053; 80061; 84443; 85025

== ENCOUNTER 2023-10-31 10:25 | Outpatient (AMB) | payer OTHER, SELFPAY ==
--- NOTE | 2023-10-31 10:43 | A.OFFPC_ITS ---
Vital Signs 10/31/23 10:47 Height 5 ft 3 in Weight 182 lb BMI 32.2 BP 124/78 Blood Pressure Location Lt brachial Position Sitting Pulse 82 Pulse Source Pulse Oximeter Pulse Oximetry (%) 97 Oxygen Delivery Method Room Air Intake Visit Reasons: Annual PE Intake Note: Pt is here today for PE. Allergies Sulfa (Sulfonamide Antibiotics) [SULFA (SULFONAMIDE ANTIBIOTICS)] Allergy (Unknown, Verified 10/31/23 10:47) HIVES Medication List - Last Reconciled 10/31/23 by Melanie Beaulieu MD acetaminophen (Tylenol Extra Strength) 1,000 mg (2 x 500 mg) PO Q6H PRN albuterol sulfate 90 mcg/actuation 1 inh inhalation QID PRN ascorbic acid (vitamin C) mg PO DAILY cholecalciferol (vitamin D3) 50 mcg PO DAILY cyclobenzaprine mg PO PRN fluticasone propionate 50 mcg/actuation (Flonase Allergy Relief) 1 spray intranasal BID PRN magnesium oxide 400 mg PO DAILY melatonin 10 mg PO BEDTIME PRN olmesartan 20 mg PO DAILY pantoprazole 40 mg PO QAM PRN polyethylene glycol 3350 (Miralax) 17 grams PO DAILY PRN sucralfate 10 mL PO BEDTIME Tobacco use date assessed: 10/31/23 Dental Screening Dental Screen Date: 10/31/23 Did you have a dental visit in the last 12 months?: Yes Did you have a dental problem in the last 6 months where you did not have access to dental care?: No Was dental information given to patient?: Patient has dentist HPI Annual PE HPI Details Pt presents for PE. PFSH Medical History (Updated 10/31/23 @ 12:09 by Melanie Beaulieu MD) Obesity Goiter Left foot pain Vitamin D deficiency Dysuria Overweight Normal pelvic exam Annual physical exam Hypertension Migraines Seasonal allergies Surgical History History of esophagogastroduodenoscopy (EGD) Hx of tubal ligation Hx of hernia repair Family History Mother Lupus Hypertension Father Hypertension High cholesterol Diabetes Maternal Aunt Osteoporosis Social History Household Members Other:: , 3 children 24-13, works in [employer] Housing: House Alcohol intake: current Alcohol intake frequency: holidays/special occasions only Patient Tobacco Use Status: Never used Tobacco e-Cigarette/Vaping Use: Never Used Current occupational status: employed 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 1. Little interest or pleasure in doing things: not at all 2. Feeling down, depressed, or hopeless: not at all 3. Trouble falling or staying asleep, or sleeping too much: several days 4. Feeling tired or having little energy: several days 5. Poor appetite or overeating: not at all 6. Feeling bad about yourself - or that you are a failure or have let yourself or your family down: not at all 7. Trouble concentrating on things, such as reading the newspaper or watching television: not at all 8. Moving or speaking so slowly that other people could have noticed. Or the opposite - being so fidgety or restless that you have been moving around a lot more than usual: not at all 9. Thoughts that you would be better off or of hurting yourself in some way: not at all Total score: 2 Depression Screening Interpretation: Negative Depression Screening Done: Yes 09431 - PHQ-9 Billing: Yes Source: Developed by Drs. Greg Mendoza, Charley Hunter, Ole Edge and colleagues, with an educational teresa from [employer]. Thrive Questionnaire Date Thrive assessed: 10/31/23 I am a: Patient What is your living situation today?: I have a steady place to live Within the past 12 months, did the food you bought not last and you didn't have the money to get more?: Never true Within the past 12 months, did you worry whether your food would run out before you got money to buy more?: Never true Do you have trouble paying for medicines?: No Do you have trouble getting transportation to medical appointments?: No Do you have trouble paying your heating and electricity bill?: No Do you have trouble taking care of your child, family member or friend?: No Do you have trouble with day-to-day activities such as bathing, preparing meals, shopping, managing finances, etc.?: No Are you currently unemployed and looking for a job?: No Are you interested in more education?: No Please select the resources that you would like help with: None THRIVE Score: 0 AUDIT C Alcohol Use Questionnaire (AUDIT-C) 1. How often do you have a drink containing alcohol?: Never 3. How often do you have six or more drinks on one occasion?: Never Total Score: 0 CLARK-7 AMB Questionnaire CLARK-7 Date CLARK - 7 assessed: 10/31/23 Feeling nervous, anxious, or on edge: 0 = Not at all Not being able to stop or control worryin = Not at all Worrying too much about different things: 0 = Not at all Trouble relaxin = Several days Being so restless that it is hard to sit still: 0 = Not at all Becoming easily annoyed or irritable: 0 = Not at all Feeling afraid as if something awful might happen: 0 = Not at all Total CLARK-7 score (0-4 normal; 5-9 mild; 10-14 moderate; 15-21 severe): 1 Source: Developed by Drs. Greg Mendoza, Charley Hunter, Ole Edge and colleagues, with an educational teresa from [employer]. Review of Systems Const All systems reviewed & are unremarkable except as noted in HPI and below Reports no additional complaints Eyes Reports no additional complaints ENT Reports no additional complaints Card Reports no additional complaints Resp Reports no additional complaints GI Reports no additional complaints Reports no additional complaints Physical exam (Primary Care) Vital Signs: Last Vital Signs Pulse 82 10/31/23 10:47 BP 124/78 10/31/23 10:47 Pulse Ox 97 10/31/23 10:47 Oxygen Delivery Method Room Air 10/31/23 10:47 BMI result Body Mass Index 32.2 Tobacco/Smoking Status: Tobacco use Status Tobacco use date assessed 10/31/23 10/31/23 10:49 Patient Tobacco Use Status Never used Tobacco 10/31/23 10:49 e-Cigarette/Vaping Use Never Used 10/31/23 10:43 PHQ-9: PHQ-9 Score PHQ-9: Total score 2 10/31/23 10:56 Depression Screening Interpretation: Negative Thrive Assessment: Date of Thrive Assessment Date Thrive assessed 10/31/23 10/31/23 10:56 Const General: no acute distress HENMT Head: Yes normal to inspection General nose exam: Normal external nose present Mouth: Normal oral and palatal mucosa present Throat: Yes posterior oropharynx normal Eyes General: appearance normal, both eyes and all related structures Neck Neck: Yes no lymphadenopathy and Yes supple Resp Effort & Inspection: normal respiratory effort Auscultation: clear to auscultation bilaterally Cardio Rhythm: regular rhythm Heart sounds: S1 normal heart sound present and S2 normal heart sound present GI Inspection: Yes normal to inspection Palpation (GI): Soft to palpation Percussion: Yes normal to percussion Auscultation: normal bowel sounds Assessment and Plan Assessment & Plan (1) SLE (systemic lupus erythematosus): Comment: Diagnosed 05/2022 +ve HELEN, + dsDNA, arthralgias, fatigue, skin rashes Started on Plaquenil 05/2022 DC 08/2022 due to GI upset Code(s): M32.9 - Systemic lupus erythematosus, unspecified Qualifiers: Systemic lupus erythematosus type: other Systemic lupus erythematosus organ involvement: unspecified Qualified Code(s): M32.8 - Other forms of systemic lupus erythematosus Plan: Off the medication, follow-up with rheumatology (2) Hypertension: Code(s): I10 - Essential (primary) hypertension Plan: Low-sodium diet increase exercise weight loss discussed with the patient. Continue olmesartan follow-up in 6 months (3) Annual physical exam: Code(s): Z00.00 - Encounter for general adult medical examination without abnormal findings Plan: Well-balanced diet regular physical activity weight loss discussed with the patient. She is up-to-date with the mammogram Pap smear by broadcast meteorologist. 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: broadcast meteorologist Code(s): Z01.419 - Encounter for gynecological examination (general) (routine) without abnormal findings Orders: Referrals Cologuard Test Z12.11 - Encounter for screening for malignant neoplasm of colon, Z12.12 - Encounter for screening for malignant neoplasm of rectum Medications: Refilled olmesartan 20 mg PO DAILY 90 tabs 3RF Coding Level of Care Code Est Pt Prev Care 40-64y(43515) Diagnoses Other forms of systemic lupus erythematosus, unspecified organ involvement status M32.8 Systemic lupus erythematosus type: other Systemic lupus erythematosus organ involvement: unspecified Hypertension I10 Annual physical exam Z00.00 Normal pelvic exam Z01.419
[2023-10-31 10:47] VITALS: BP 124/78; PULSE 82; O2SAT 97; BMI 32.2
== END 2023-10-31 11:31 | disposition home or self-care (01) ==
PROVIDERS: PCP Internal Medicine; Visit Provider Internal Medicine
DX: M32.8 Other forms of systemic lupus erythematosus (principal); I10 Essential (primary) hypertension; Z00.00 Encounter for general adult medical examination without abnormal findings; Z01.419 Encounter for gynecological examination (general) (routine) without abnormal findings
CPT/HCPCS: 99396

== ENCOUNTER 2024-04-29 10:22 | Outpatient (AMB) | payer OTHER, SELFPAY ==
[2024-04-29 10:36] VITALS: BP 122/78; PULSE 77; O2SAT 97; BMI 31.5
--- NOTE | 2024-04-29 10:36 | A.OFFPC_ITS ---
Vital Signs 04/29/24 10:36 Height 5 ft 3 in Weight 178 lb BMI 31.5 BP 122/78 Blood Pressure Location Rt brachial Position Sitting Pulse 77 Pulse Source Pulse Oximeter Pulse Oximetry (%) 97 Oxygen Delivery Method Room Air Intake Visit Reasons: 6 month follow up Intake Note: Osiris is here today for 6 months follow up visit. Allergies Sulfa (Sulfonamide Antibiotics) [SULFA (SULFONAMIDE ANTIBIOTICS)] Allergy (Unknown, Verified 04/29/24 10:42) HIVES Medication List - Last Reconciled 04/29/24 by Melanie Beaulieu MD acetaminophen (Tylenol Extra Strength) 1,000 mg (2 x 500 mg) PO Q6H PRN albuterol sulfate 90 mcg/actuation 1 inh inhalation QID PRN ascorbic acid (vitamin C) mg PO DAILY cholecalciferol (vitamin D3) 50 mcg PO DAILY cyclobenzaprine mg PO PRN fluticasone propionate 50 mcg/actuation (Flonase Allergy Relief) 1 spray intranasal BID PRN magnesium oxide 400 mg PO DAILY melatonin 10 mg PO BEDTIME PRN olmesartan 20 mg PO DAILY polyethylene glycol 3350 (Miralax) 17 grams PO DAILY PRN sucralfate 10 mL PO BEDTIME Tobacco use date assessed: 04/29/24 Dental Screening Dental Screen Date: 04/29/24 Did you have a dental visit in the last 12 months?: Yes Did you have a dental problem in the last 6 months where you did not have access to dental care?: No Was dental information given to patient?: Patient has dentist HPI 6 month follow up HPI Details Patient presents for the follow-up of hypertension controlled on olmesartan. Patient has been under lot of stress related to isagreement with her . Patient denies insomnia [facility] Obesity Goiter Left foot pain Vitamin D deficiency Dysuria Overweight Normal pelvic exam Annual physical exam Hypertension Migraines Seasonal allergies Surgical History History of esophagogastroduodenoscopy (EGD) Hx of tubal ligation Hx of hernia repair Family History Mother Lupus Hypertension Father Hypertension High cholesterol Diabetes Maternal Aunt Osteoporosis Social History Household Members Other:: , 3 children 24-13, works in [employer] Housing: House Alcohol intake: current Alcohol intake frequency: holidays/special occasions only Patient Tobacco Use Status: Never used Tobacco e-Cigarette/Vaping Use: Never Used service: No Current occupational status: employed 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 1. Little interest or pleasure in doing things: not at all 2. Feeling down, depressed, or hopeless: not at all 3. Trouble falling or staying asleep, or sleeping too much: more than half the days 4. Feeling tired or having little energy: more than half the days 5. Poor appetite or overeating: not at all 6. Feeling bad about yourself - or that you are a failure or have let yourself or your family down: not at all 7. Trouble concentrating on things, such as reading the newspaper or watching television: not at all 8. Moving or speaking so slowly that other people could have noticed. Or the opposite - being so fidgety or restless that you have been moving around a lot more than usual: not at all 9. Thoughts that you would be better off or of hurting yourself in some way: not at all Total score: 4 Depression Screening Interpretation: Negative Depression Screening Done: Yes 47555 - PHQ-9 Billing: Yes Source: Developed by Drs. Greg Mendoza, Charley Hunter, Ole Edge and colleagues, with an educational teresa from [employer]. Thrive Questionnaire Date Thrive assessed: 04/29/24 I am a: Patient What is your living situation today?: I have a steady place to live Within the past 12 months, did the food you bought not last and you didn't have the money to get more?: Never true Within the past 12 months, did you worry whether your food would run out before you got money to buy more?: Never true Do you have trouble paying for medicines?: No Do you have trouble getting transportation to medical appointments?: No Do you have trouble paying your heating and electricity bill?: No Do you have trouble taking care of your child, family member or friend?: No Do you have trouble with day-to-day activities such as bathing, preparing meals, shopping, managing finances, etc.?: No Are you interested in more education?: No Please select the resources that you would like help with: None Currently or been in a relationship where the following occur: No concerns reported THRIVE Score: 0 AUDIT C Alcohol Use Questionnaire (AUDIT-C) 1. How often do you have a drink containing alcohol?: Monthly or less 2. How many drinks containing alcohol do you have on a typical day when you are drinking?: 1 or 2 3. How often do you have six or more drinks on one occasion?: Never Total Score: 1 CLARK-7 AMB Questionnaire CLARK-7 Date CLARK - 7 assessed: 04/29/24 Feeling nervous, anxious, or on edge: 0 = Not at all Not being able to stop or control worryin = Not at all Worrying too much about different things: 0 = Not at all Trouble relaxin = Not at all Being so restless that it is hard to sit still: 0 = Not at all Becoming easily annoyed or irritable: 0 = Not at all Feeling afraid as if something awful might happen: 0 = Not at all Total CLARK-7 score (0-4 normal; 5-9 mild; 10-14 moderate; 15-21 severe): 0 Source: Developed by Drs. Greg Mendoza, Charley Hunter, Ole Edge and colleagues, with an educational teresa from [employer]. CLARK-7 Assessment Billing CLARK-7 Assessment Tool: CLARK-7 Assessment 06948 Review of Systems Const All systems reviewed & are unremarkable except as noted in HPI and below Eyes Reports no additional complaints Card Reports no additional complaints Resp Reports no additional complaints GI Reports no additional complaints Reports no additional complaints Physical exam (Primary Care) Vital Signs: Last Vital Signs Pulse 77 04/29/24 10:36 BP 122/78 04/29/24 10:36 Pulse Ox 97 04/29/24 10:36 Oxygen Delivery Method Room Air 04/29/24 10:36 BMI result Body Mass Index 31.5 Tobacco/Smoking Status: Tobacco use Status Tobacco use date assessed 04/29/24 04/29/24 10:45 Patient Tobacco Use Status Never used Tobacco 04/29/24 10:36 e-Cigarette/Vaping Use Never Used 04/29/24 10:36 PHQ-9: PHQ-9 Score PHQ-9: Total score 4 04/29/24 10:45 Depression Screening Interpretation: Negative Thrive Assessment: Date of Thrive Assessment Date Thrive assessed 04/29/24 04/29/24 10:45 Currently or been in a relationship where the following occur: No concerns reported Const General: no acute distress HENMT Head: Yes normal to inspection Ears: hearing grossly normal bilaterally Throat: Yes posterior oropharynx normal Eyes General: appearance normal, both eyes and all related structures Neck Neck: Yes supple Resp Effort & Inspection: normal respiratory effort Auscultation: clear to auscultation bilaterally Cardio Rhythm: regular rhythm Heart sounds: S1 normal heart sound present and S2 normal heart sound present Assessment and Plan Assessment & Plan (1) Hypertension: Code(s): I10 - Essential (primary) hypertension Plan: Continue olmesartan (2) SLE (systemic lupus erythematosus): Comment: Diagnosed 05/2022 +ve EHLEN, + dsDNA, arthralgias, fatigue, skin rashes Started on Plaquenil 05/2022 DC 08/2022 due to GI upset Code(s): M32.9 - Systemic lupus erythematosus, unspecified Qualifiers: Systemic lupus erythematosus type: other Systemic lupus erythematosus organ involvement: unspecified Qualified Code(s): M32.8 - Other forms of systemic lupus erythematosus Plan: In remission follow-up, with Rheumatology Coding Level of Care Code Est Pt Level 3 (31274) Diagnoses Hypertension I10 Other forms of systemic lupus erythematosus, unspecified organ involvement status M32.8 Systemic lupus erythematosus type: other Systemic lupus erythematosus organ involvement: unspecified Additional Codes CLARK-7 Assessment Billing - CLARK-7 Assessment Tool: CLARK-7 Assessment [id number] ([id number])
== END 2024-04-29 12:17 | disposition home or self-care (01) ==
PROVIDERS: PCP Internal Medicine; Visit Provider Internal Medicine
DX: I10 Essential (primary) hypertension (principal); M32.8 Other forms of systemic lupus erythematosus

== ENCOUNTER → 2024-04-29 10:22 | Outpatient (BNVA) | payer OTHER, SELFPAY | PROVIDERS: PCP Internal Medicine; Visit Provider Internal Medicine | DX: I10 Essential (primary) hypertension (principal); M32.8 Other forms of systemic lupus erythematosus; Z79.899 Other long term (current) drug therapy | CPT/HCPCS: 96127 ==

== ENCOUNTER 2024-06-20 08:46 | Outpatient (REF) | payer OTHER, SELFPAY ==
[2024-06-20 10:25] LABS: MANUAL DIFF FLAG NO
[2024-06-20 10:31] LABS: Basophils Percent Auto 0.3 % (0-2); Eosinophils Absolute Auto 0.2 X10*3/uL (0.0-0.4); Eosinophils Percent Auto 2.9 % (0-4); Hematocrit 39.5 % (37.0-47.0); Hemoglobin 14.2 g/dl (12.0-16.0); Imm Gran Abs Auto 0.02 X10*3/uL (0.00-0.03); Imm Gran Pct Auto 0.3 % (0.0-0.4); Lymphocytes Absolute Auto 1.8 X10*3/uL (1.2-4.9); Lymphocytes Percent Auto 23.7 % (20-40); Mean Corpuscular HGB Conc 35.9 g/dl (31.0-35.0); Mean Corpuscular Hemoglobin 31.1 pg (27.0-33.0); Mean Corpuscular Volume 86.4 fL (80.0-98.0); Monocytes Absolute Auto 0.5 X10*3/uL (0.1-1.2); Monocytes Percent Auto 7.2 % (2-11); Neutrophils Absolute Auto 4.9 x10*3/uL (2.0-8.3); Neutrophils Percent Auto 65.6 % (45-73); Platelet Count 248 X10*3/uL (160-400); Red Blood Count 4.57 X10*6/uL (4.20-5.50); White Blood Count 7.5 X10*3/uL (4.8-10.8)
[2024-06-20 10:36] LABS: Appearance Urine Clear; Color Urine Yellow; Glucose Urine UA Negative (Negative); Leukocyte Esterase Urine Negative (Negative); Nitrite Urine Negative (Negative); Urine Blood Negative (Negative); Urine Ketones Negative (Negative); Urine Protein Negative (Neg-Trace)
[2024-06-20 10:43] LABS: Bacteria Urine None Seen (None Seen); Hyaline Casts Urine 0-2 /LPF (0-2); RBC Urine 0-2 /HPF (0-2); Squamous Epithelial Cell Urine 0-2 /HPF (0-2); WBC Urine 0-5 /HPF (0-5)
[2024-06-20 11:07] LABS: Erythrocyte Sedimentation Rate 14 MM/HR (0-20)
[2024-06-20 11:25] LABS: Alanine Aminotransferase 16 U/L (0-31); Alkaline Phosphatase 19 U/L (39-117); Anion Gap 12 (12-20); Aspartate Amino Transferase 21 U/L (5-31); Bilirubin Total 0.5 mg/dL (0.0-1.0); Blood Urea Nitrogen 19 mg/dL (9-16); C Reactive Protein 0.38 mg/dL (< or = 0.50); Calcium 9.2 mg/dL (8.4-10.2); Carbon Dioxide 23 mmol/L (22-29); Chloride 106 mmol/L (96-108); Estimated Glomerular Filt Rate > 60; Glucose Random 88 mg/dL (60-115); Potassium 4.1 mmol/L (3.3-5.1); Sodium 137 mmol/L (135-145); Total Protein 7.9 g/dL (6.5-8.0)
[2024-06-20 11:26] LABS: Creatinine Urine 95.66 mg/dL; Total Protein Urine Random < 7 mg/dL (<12)
[2024-06-21 14:33] LABS: Complement C3 154 mg/dL (83-193)
[2024-06-21 21:32] LABS: Anti DNA DS Antibody 15 IU/mL
[2024-06-24 16:38] LABS: Vitamin D 25-OH, D2 <4 ng/mL; Vitamin D 25-OH, D3 44 ng/mL; Vitamin D 25-OH, Total 44 ng/mL (30-100)
[2024-06-25 16:13] LABS: DNAds, Crithidia Antibody Negative (Negative)
== END 2024-06-20 08:47 | disposition home or self-care (01) ==
LOC: HO.HMGCLDS 08:46
PROVIDERS: PCP Internal Medicine; Visit Provider Student in an Organized Health Care Education/Training Program
DX: M32.9 Systemic lupus erythematosus, unspecified (principal); E55.9 Vitamin D deficiency, unspecified
CPT/HCPCS: 36415; 80053; 81001; 82306; 82570; 84156; 85025; 85652; 86140; 86160; 86225; 86255

== ENCOUNTER 2024-07-04 09:22 | Outpatient (AMB) | payer OTHER, SELFPAY ==
--- NOTE | 2024-07-04 09:25 | A.OFFVIS_ITS ---
Vital Signs 07/04/24 09:31 Height 5 ft 3 in Weight 177 lb 4.026 oz BMI 31.4 BP 124/80 Blood Pressure Location Lt brachial Position Sitting Pulse 86 Pulse Source Pulse Oximeter Pulse Oximetry (%) 96 Oxygen Delivery Method Room Air Intake Visit Reasons: SLE Intake Note: Patient presents for SLE. Allergies Sulfa (Sulfonamide Antibiotics) [SULFA (SULFONAMIDE ANTIBIOTICS)] Allergy (Unknown, Verified 07/04/24 09:29) HIVES Medication List - Last Reconciled 07/04/24 by Anne Yang MD acetaminophen (Tylenol Extra Strength) 1,000 mg (2 x 500 mg) PO Q6H PRN albuterol sulfate 90 mcg/actuation 1 inh inhalation QID PRN ascorbic acid (vitamin C) mg PO DAILY cholecalciferol (vitamin D3) 50 mcg PO DAILY cyclobenzaprine mg PO PRN fluticasone propionate 50 mcg/actuation (Flonase Allergy Relief) 1 spray intranasal BID PRN magnesium oxide 400 mg PO DAILY melatonin 10 mg PO BEDTIME PRN olmesartan 20 mg PO DAILY polyethylene glycol 3350 (Miralax) 17 grams PO DAILY PRN sucralfate 10 mL PO BEDTIME HPI Comments Details: 43-year-old female with mild lupus presents for follow-up. She states that she feels well same overall. She has been watching her diet, she has been exercising more. She has lost about 10 lb. She continues to have some swelling and stiffness of her fingers especially throughout the night and in the morning. Morning stiffness lasting 2 hours. She has to take her rings off every night. Her fingers improve after about 2 hours. She also gets intermittent pain and stiffness of her knees especially with going up and down the stairs.. She gets bilateral knee pain with going up and down the stairs. She denies any skin rashes. Denies any mouth ulcers or blood or frothy in the urine. Initial history: This is a 41-year-old female with a past medical history of hypertension and seasonal allergies was referred for evaluation of a positive HELEN. Patient has been evaluated by Rheumatology before for positive HELEN but no diagnosis or medication was started. Her mother had SLE and at 46. She has had intermittent pain and swelling of her hands over the last few years with varying severity. She has pain swelling and stiffness of her fingers mostly in the morning. Morning stiffness last at least 1 hour. She had to change her ring size last month as it became too tight. Over the last few months or so she has been having worsening fatigue, she was diagnosed with COVID in November and since then she has had fatigue. She also has bilateral knee pain worse with going up and down the stairs. She also has random pain of her calf muscles. Denies any significant muscle weakness. She mentions having some skin rash on her face. Denies photosensitivity. She has dry mouth in the morning which improves throughout the day. Patient denies Raynaud's, photosensitivity, oral or nasal ulcers, , fevers, alopecia, history of miscarriage. [facility] Medical History Obesity Goiter Left foot pain Vitamin D deficiency Dysuria Overweight Normal pelvic exam Annual physical exam Hypertension Migraines Seasonal allergies Surgical History History of esophagogastroduodenoscopy (EGD) Hx of tubal ligation Hx of hernia repair Family History Mother Lupus Hypertension Father Hypertension High cholesterol Diabetes Maternal Aunt Osteoporosis Social History Household Members Other:: , 3 children 24-13, works in [employer] Housing: House Alcohol intake: current Alcohol intake frequency: holidays/special occasions only Patient Tobacco Use Status: Never used Tobacco e-Cigarette/Vaping Use: Never Used service: No Current occupational status: employed 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 Cognitive needs: No Hearing needs: No Vision needs: No Female Reproductive History Menstrual Total pregnancies: 3 Full term: 3 Review of Systems Const Denies fever(s) Musc Reports arthralgias, Reports joint swelling and Reports stiffness Skin/Breast Denies rash Physical Exam Vital Signs: Last Vital Signs Pulse 86 07/04/24 09:31 BP 124/80 07/04/24 09:31 Pulse Ox 96 07/04/24 09:31 Oxygen Delivery Method Room Air 07/04/24 09:31 BMI result Body Mass Index 31.4 Const General: cooperative, healthy appearing, no acute distress and well developed Nutritional Appearance: obese Limitations: no limitations HEENT Head: Yes normocephalic and Yes atraumatic Mouth: moist mucous membranes Neck Neck: Yes no lymphadenopathy Resp Effort & Inspection: normal respiratory effort and able to speak in complete sentences Auscultation: clear to auscultation bilaterally Cardio Rate: regular rate Rhythm: regular rhythm Heart sounds: S1 normal heart sound present and S2 normal heart sound present GI Inspection: No distended Palpation (GI): Soft to palpation and nontender Skin General skin exam: no rashes or lesions noted Extrem Other: Normal nailfold capillaroscopy, no synovitis, no tender joints Mildly puffy fingers Assessment & Plan Assessment & Plan (1) SLE (systemic lupus erythematosus): Comment: Diagnosed 05/2022 +ve HELEN, + dsDNA, arthralgias, fatigue, skin rashes Started on Plaquenil 05/2022 DC 08/2022 due to GI upset Code(s): M32.9 - Systemic lupus erythematosus, unspecified Category: Medical Qualifiers: Systemic lupus erythematosus type: other Systemic lupus erythematosus organ involvement: unspecified Qualified Code(s): M32.8 - Other forms of systemic lupus erythematosus Plan: This is a 43-year-old female with mild SLE (positive HELEN 1-40 speckled and 1-320 cytoplasmic fibrillar pattern, +ve DsDNA, fatigue, arthralgias, skin rashes) ? strong family history of SLE in her mother, aunts and cousins.? Started hydroxychloroquine 05/2022. Patient states she feels somewhat better overall but prefers not to take medications. Discontinue 08/2022. She continues to have arthralgias of hands, fingers, ankles, worse in the morning associated with swelling and morning stiffness. There is no organ damage, there are no cytopenias, hematuria, proteinuria. Patient prefers not to take any DMARDs which I think is reasonable given mild disease and no organ involvement. We will continue to watch patient off DMARDs. Labs before next visit in 12 months. Follow-up sooner if needed (2) Abnormal alkaline phosphatase test: Code(s): R74.8 - Abnormal levels of other serum enzymes Category: Medical Plan: Persistently low alk-phos level, with low bone specific alk loss and increased vitamin B6 level. DEXA scan shows low Z-score. 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 Patient's with hypophosphatasia can sometimes develop musculoskeletal symptoms, however she lacks any history of fractures or dental complications. She was evaluated by endocrinology and a genetic test was suggested but patient is hesitant about going through with it. Plan I spent 24 minutes reviewing patient's chart, evaluating patient, ordering diagnostic workup, counseling patient and documenting in the chart Orders: Orders Complement C4 1 Year M32.8 - Other forms of systemic lupus erythematosus Erythrocyte Sedimentation Rate 1 Year M32.8 - Other forms of systemic lupus erythematosus Protein Creatinine Ratio, Ur 1 Year M32.8 - Other forms of systemic lupus erythematosus Complete Blood Count Auto Diff 1 Year M32.8 - Other forms of systemic lupus erythematosus Comprehensive Met. Panel 1 Year M32.8 - Other forms of systemic lupus erythematosus Anti DNA DS Antibody 1 Year M32.8 - Other forms of systemic lupus erythematosus Complement C3 1 Year M32.8 - Other forms of systemic lupus erythematosus C Reactive Protein 1 Year M32.8 - Other forms of systemic lupus erythematosus UA w Microscopic 1 Year M32.8 - Other forms of systemic lupus erythematosus Coding Level of Care Code Est Pt Level 4 (39570) Diagnoses Other forms of systemic lupus erythematosus, unspecified organ involvement status M32.8 Systemic lupus erythematosus type: other Systemic lupus erythematosus organ involvement: unspecified Abnormal alkaline phosphatase test R74.8
[2024-07-04 09:31] VITALS: BP 124/80; PULSE 86; O2SAT 96; BMI 31.4
== END 2024-07-04 09:44 | disposition home or self-care (01) ==
PROVIDERS: PCP Internal Medicine; Visit Provider Student in an Organized Health Care Education/Training Program
DX: M32.8 Other forms of systemic lupus erythematosus (principal); R74.8 Abnormal levels of other serum enzymes
CPT/HCPCS: 99214

== ENCOUNTER → 2024-07-04 09:22 | Outpatient (BNVA) | payer OTHER, SELFPAY | PROVIDERS: PCP Internal Medicine; Visit Provider Student in an Organized Health Care Education/Training Program ==

== ENCOUNTER 2024-10-16 13:46 | Outpatient (AMB) | payer OTHER, SELFPAY ==
[2024-10-16 13:48] VITALS: BP 128/82; PULSE 71; RESP 18; TEMP 36.8; O2SAT 98; BMI 31.4
--- NOTE | 2024-10-16 13:48 | A.OFFPC_ITS ---
Vital Signs 10/16/24 13:48 Height 5 ft 3 in Weight 177 lb BMI 31.4 BP 128/82 Blood Pressure Location Lt brachial Position Sitting Respiration 18 Pulse 71 Pulse Source Pulse Oximeter Temp 98.3 F Temp Source Oral Pulse Oximetry (%) 98 Oxygen Delivery Method Room Air Intake Visit Reasons: Shoulder pain Intake Note: Pt is here today for a sick visit. Pt c/o L shoulder pain for 2 weeks now. Allergies Sulfa (Sulfonamide Antibiotics) [SULFA (SULFONAMIDE ANTIBIOTICS)] Allergy (Unknown, Verified 10/16/24 13:50) HIVES Medication List - Last Reconciled 10/16/24 by Melanie Beaulieu MD acetaminophen (Tylenol Extra Strength) 1,000 mg (2 x 500 mg) PO Q6H PRN albuterol sulfate 90 mcg/actuation 1 inh inhalation QID PRN ascorbic acid (vitamin C) mg PO DAILY cholecalciferol (vitamin D3) 50 mcg PO DAILY cyclobenzaprine mg PO PRN fluticasone propionate 50 mcg/actuation (Flonase Allergy Relief) 1 spray intranasal BID PRN magnesium oxide 400 mg PO DAILY melatonin 10 mg PO BEDTIME PRN olmesartan 20 mg PO DAILY polyethylene glycol 3350 (Miralax) 17 grams PO DAILY PRN sucralfate 10 mL PO BEDTIME Tobacco use date assessed: 10/16/24 Dental Screening Dental Screen Date: 10/16/24 Did you have a dental visit in the last 12 months?: Yes Did you have a dental problem in the last 6 months where you did not have access to dental care?: No Was dental information given to patient?: Patient has dentist HPI Shoulder pain HPI Details Pt c/o L shoulder pain for 2 weeks, worse when when reaching overhead but also at night when lying on the left side. Pt has been lifting weights for the last 6 months at the gym. Hypertension is controlled on olmesartan but patient would like to try a lower dose because she lost some weight. [facility] Medical History Obesity Goiter Left foot pain Vitamin D deficiency Dysuria Overweight Normal pelvic exam Annual physical exam Hypertension Migraines Seasonal allergies Surgical History History of esophagogastroduodenoscopy (EGD) Hx of tubal ligation Hx of hernia repair Family History Mother Lupus Hypertension Father Hypertension High cholesterol Diabetes Maternal Aunt Osteoporosis Social History Household Members Other:: , 3 children 24-13, works in [employer] Housing: House Alcohol intake: current Alcohol intake frequency: holidays/special occasions only Patient Tobacco Use Status: Never used Tobacco e-Cigarette/Vaping Use: Never Used service: No Current occupational status: employed 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 Cognitive needs: No Hearing needs: No Vision needs: No Questionnaire Thrive Questionnaire Date Thrive assessed: 04/29/24 I am a: Patient What is your living situation today?: I have a steady place to live Within the past 12 months, did the food you bought not last and you didn't have the money to get more?: Never true Within the past 12 months, did you worry whether your food would run out before you got money to buy more?: Never true Do you have trouble paying for medicines?: No Do you have trouble getting transportation to medical appointments?: No Do you have trouble paying your heating and electricity bill?: No Do you have trouble taking care of your child, family member or friend?: No Do you have trouble with day-to-day activities such as bathing, preparing meals, shopping, managing finances, etc.?: No Are you interested in more education?: No Please select the resources that you would like help with: None Currently or been in a relationship where the following occur: No concerns reported THRIVE Score: 0 CLARK-7 AMB Questionnaire CLARK-7 Date CLARK - 7 assessed: 04/29/24 Source: Developed by Drs. Greg Mendoza, Charley Hunter, Ole Edge and colleagues, with an educational teresa from [employer]. Review of Systems Const All systems reviewed & are unremarkable except as noted in HPI and below Eyes Reports no additional complaints ENT Reports no additional complaints Card Reports no additional complaints Resp Reports no additional complaints GI Reports no additional complaints Reports no additional complaints Physical exam (Primary Care) Vital Signs: Last Vital Signs Temp 98.3 F 10/16/24 13:48 Pulse 71 10/16/24 13:48 Resp 18 10/16/24 13:48 BP 128/82 10/16/24 13:48 Pulse Ox 98 10/16/24 13:48 Oxygen Delivery Method Room Air 10/16/24 13:48 BMI result Body Mass Index 31.4 Tobacco/Smoking Status: Tobacco use Status Tobacco use date assessed 10/16/24 10/16/24 13:49 Patient Tobacco Use Status Never used Tobacco 10/16/24 13:49 e-Cigarette/Vaping Use Never Used 10/16/24 13:49 Thrive Assessment: Date of Thrive Assessment Date Thrive assessed 04/29/24 10/16/24 13:49 Currently or been in a relationship where the following occur: No concerns reported Const General: no acute distress HENMT Mouth: Normal oral and palatal mucosa present Eyes General: appearance normal, both eyes and all related structures Neck Neck: Yes supple Resp Effort & Inspection: normal respiratory effort Auscultation: clear to auscultation bilaterally Cardio Rhythm: regular rhythm Heart sounds: S1 normal heart sound present and S2 normal heart sound present Extrem Other: Left shoulder with slightly decreased range of motion, superior aspect tenderness, no soft tissue swelling erythema or warmth Coding Level of Care Code Est Pt Level 3 (20649) Diagnoses Shoulder pain, left M25.512 Hypertension I10 Assessment & Plan Assessment & Plan (1) Shoulder pain, left: Code(s): M25.512 - Pain in left shoulder Category: Medical Plan: Meloxicam 15 mg daily for 1 week as prescribed patient will be referred to physical therapy (2) Hypertension: Code(s): I10 - Essential (primary) hypertension Category: Medical Plan: Patient will decrease olmesartan to 10 mg a day, Follow-up in 3 weeks for physical Orders: Orders PT Evaluation and Treatment Today M25.512 - Pain in left shoulder Medications: New meloxicam 15 mg PO DAILY 7 tabs 0RF olmesartan 10 mg (2 x 5 mg) PO DAILY 60 tabs 0RF
--- OUTSIDE RECORDS SUMMARY | 2024-10-16 16:27 | XMS_ITS | Clinical Summary ---
Author Organization [facility] Address [address] [place] [address] Phone Support Name Relationship Address Phone David Damon Daughter [birth year][address] [place] [address] Avinash Oneill ??n Spouse [address] [place] [address] Care Team Providers Care Accounts Payable Associate Name Role Phone Rene Kurtz MD Primary Care Provider [phone] Allergies Active Allergy Reactions Criticality Noted Date Comments Sulfa (Sulfonamide Antibiotics) Rash Low 05/15 Medications cyclobenzaprine (FLEXERIL) 10 mg tablet TAKE 1/2 TABLET BY MOUTH AT BEDTIME NEEDED FOR MUSCLE PAIN 4 Active cholecalciferol (VITAMIN D-3) 50 mcg (2,000 unit) capsule Take 1 tablet.old by mouth daily. 3 Active clotrimazole-be tamethasone (LOTRISONE) 1-0.05 % cream Apply to area sparingly twice a day for up to two weeks 2 Active loratadine (CLARITIN) 10 mg tablet Take 1 tablet (10 mg total) by mouth 1 (one) time each day. 0 Active cyanocobalamin (VITAMIN B-12) 1,000 mcg tablet Take 1,000 mcg by mouth daily. Active ascorbic acid (VITAMIN C) 1,000 mg tablet Take 1,000 mg by mouth daily. Active multivit-min/fe rrous fumarate (MULTI VITAMIN ORAL) Take 1 tablet by mouth 1 (one) time each day. Active garlic 500 mg capsule Take 500 mg by mouth daily. Active olmesartan (BENICAR) 20 mg tablet Take 1 tablet (20 mg total) by mouth 1 (one) time each day. 4 Active Active Problems Problem Noted Date Diagnosed Date Hypoglycemia 05/09/2024 Migraine 05/09/2024 Overview (05/09/2024): Sees Neurology at [place] Obesity (BMI 30.0-34.9) 03/12/2019 Thoracic osteoarthritis 03/12/2019 Essential hypertension 02/20/2017 Gastroesophageal reflux disease 10/10/2016 Abdominal pain, chronic, epigastric 03/03/2014 Allergic rhinitis 05/28/2009 Immunizations Name Administration Dates Next Due DTP 10/26/1983, 9,06/06/1979, 979,02/06/1979 Hepatitis B (Hfcuvdf-Y-Ycdwu , Recombivax HB-Adult) 19yo and older 10/16/2007,06/27/2007 MMR, measles mumps and rubel la Live (Priorix; M-M-R II) 12mo and older 03/10/1994,02/13/1980 OPV 10/26/1983, 9,06/17/1979, 979,02/06/1979 PPD Test 09/12/2014,09/02/2013,02/26/2010 Td Tetanus diptheria (Tdvax) 7yo and older 03/04/1994 Tdap Tetanus diptheria acell ular pertussis (Boostrix; Adacel) 7yo and older 02/26/2010 Varicella live (Varivax) 12m o and older 04/24/2013,03/27/2013 Surgical History Surgery Date Site/Laterality Comments TUBAL LIGATION 2008 PROCEDURE: HISTORICAL TUBAL LIGATION ESOPHAGOGASTRODUODENOSCOPY 02/21/14 PROCEDURE: [place] ESOPHAGOGASTRODUODENOSCOPY TRANSORAL DIAGNOSTIC; COMMENT: normal BREAST LUMPECTOMY Left PROCEDURE: ---- BREAST LUMP BIOPSY ---- Medical History Medical History Date Comments Migraine DX:Migraine Hypoglycemia DX:Hypoglycemia Allergic rhinitis DX:Allergic rh initis Bacterial pneumonia DX:Bacterial pneumonia Essential hypertension 02/20/2017 DX:Essent ial hypertension Thoracic osteoarthritis 03/12/2019 DX:Thora cic osteoarthritis Family History Medical History Relation Name Comments Other: lupus Aunt maternal Diabetes Father Heart attack Father HTN; HLD; diabe narayan; hypothyroidism Diabetes Maternal Grandmother Hypertension Mother stroke age 45; lupus; diverticulitis; age 47 s/p colon resection Stroke Mother Leukemia Mother's side 1 cousin Other: lupus Mother's side 2 cousin Diabetes Paternal Grandmother Breast cancer Neg Hx Colon cancer Neg Hx Ovarian cancer Neg Hx Prostate cancer Neg Hx Relation Name Status Comments Aunt Father Maternal Grandmother Mother Mother's side 1 Mother's side 2 Paternal Grandmother Social History Tobacco Use Types Packs/Day Years Used Date Smoking Tobacco: Never Smokeless Tobacco: Never Alcohol Use Standard Drinks/Week Comments No 0 (1 standard drink = 0.6 oz pur e alcohol) Housing Instability Answer Date Recorde d Are you worried that in the next 2 months you may not have stable housing? No 07/24/2024 Food Access & Nutrition Answer Date Rec orded Do you have access to a vari ety of food including fruits and vegetables? Yes 07/24/2024 Health Literacy Answer Date Recorded How often do you need to hav e someone help you when you read instructions, pamphlets, or other written material from your doctor or pharmacy? Never 07/24/2024 Caregiver: How often do you need to have someone help you when you read instructions, pamphlets, or other written material from your doctor or pharmacy? Not on file 07/24/2024 Financial Risk Answer Date Recorded How hard is it for you to pa y for the very basics like food, housing, medical care, and air conditioning / heating? Not very hard 07/24/2024 Transportation Answer Date Recorded Has the lack of transportati on kept you from meetings, work, or from getting things needed for daily living? No Has the lack of transportati on kept you from medical appointments or from getting medications? No 07/24/2024 Social Isolation Answer Date Recorded How often do you feel lonely or isolated from th ose around you? Rarely 07/24/2024 Food Risk Answer Date Recorded Within the past 12 months we worried whether our food would run out before we got money to buy more. Never true 07/24/2024 Within the past 12 months th e food we bought just didn't last and we didn't have money to get more. Never true 07/24/2024 Dependent Care Answer Date Recorded Do you need help finding or paying for care for your loved ones. For example, child development specialist or elderly care for an older adult? No 07/24/2024 Education Answer Date Recorded Do you think completing more education or training, like finishing a GED, going to college, or learning a trade, would be helpful for you? N/A 07/24/2024 Employment and Income Answer Date Recor ded During the last four weeks, have you been actively looking for work? No 07/24/2024 Living Situation Answer Date Recorded What is your living situation? 1 09/24/2023 Comments Unknown Sex and Gender Information Value Date Recorded Sex Assigned at Not on file Legal Sex Female 4:32 AM EST Gender Identity Not on file Sexual Orientation Not on file Obstetrics History Para Term AB IAB SAB Ectopic Multiple Livin g Live Births 3 3 3 3 3 Date Outcome GA Total Labor Labor/2nd/3rd Weight Sex Type Anes PTL Shanae A1 A5 Name Clin 997 Term 41w 0d 3062 g (108 oz) F Vag-S pont None Living Delivery Location:[place] 004 Term 38w 0d 3062 g (108 oz) M Vag-S pont None Living Delivery Location:[place] 008 Term 38w 0d 3402 g (120 oz) M Vag-S pont Living Delivery Location:[facility] Filed Vital Signs Vital Sign Reading Time Taken Comments Blood Pressure 148/88 05/01/2023 8:45 AM EDT Pulse 74 05/01/2023 8:45 AM EDT Temperature - - Respiratory Rate - - Oxygen Saturation - - Inhaled Oxygen Concentration - - Weight 87.5 kg (193 lb) 05/01/2023 8:45 AM EDT Height 160 cm (5' 3 ) 05/01/2023 8:45 AM EDT Body Mass Index 34.19 05/01/2023 8:45 AM EDT Plan of Treatment Upcoming Encounters Date Type Department Care Team (Late st Contact Info) Description 12/09/2024 9:45 AM EDT Office Visit Obstetrics & Gynecology - [facility] [address] [place] [id number] Viri Pierce CNM [address] [place] [address] Health Maintenance Due Date Last Done Comments Hepatitis B Vaccines (3 of 3 - 19+ 3-dose series) 12/26/2007 10/16/2007, 06/27/2007 DTaP,Tdap,and Td Vaccines (7 - Td or Tdap) 02/27/2020 02/26/2010, 03/04/1994, 10/26/1983, Additional history exists Colorectal Cancer Screening: Colonoscopy 07/17/2022 Hypertension/CHF/CAD Annual BMP Blood Test 07/28/2022 05/14/2018 Cholesterol Screening (Lipid Panel) 04/01/2023 04/01/2018 COVID-19 Vaccine ( season) 2024 Influenza Vaccine (#1) 2024 Breast Cancer Screening 06/23/2025 06/23/2023, 11/27 Depression Screening 07/24/2025 07/24/2024 Social Influencers of Health Screening 07/24/2025 07/24/2024 Cervical Cancer Screening: HPV 05/01/2028 05/01/2023 IPV Vaccines Completed 10/26/1983, 06/15, 06/17/1979, Additional history exists MMR Vaccines Completed 03/10/1994, 02/13/1980 Varicella Vaccines Aged Out 04/24/2013, 03/27/2013 No longer eligible based on patient's age to complete this topic Hepatitis C Screening Completed 02/17/2020 HIV Screening Completed 05/01/2021 HIB Vaccines Aged Out No longer eligi ble based on patient's age to complete this topic HPV Vaccines Aged Out No longer eligi ble based on patient's age to complete this topic Hepatitis A Vaccines Aged Out No long er eligible based on patient's age to complete this topic Meningococcal ACWY Vaccine Aged Out N o longer eligible based on patient's age to complete this topic Meningococcal B Vacine Aged Out No lo nger eligible based on patient's age to complete this topic Pneumococcal Vaccine: Pediatrics (0 to 5 Years) and At-Risk Patients (6 to 64 Years) Aged Out No longer eligible based on patient's age to complete this topic RSV Immunization Patients Under 20 months Aged Out No longer eligible based on patient's age to complete this topic Procedures Procedure Name Priority Date/Time Associated Diagnosis Comments HPV Routine 05/01/2023 HIV SCREENING Routine 05/01/2021 HEPATITIS C SCREENING Routine 02/17/2020 ANNUAL BMP BLOOD TEST Routine 05/14/2018 LIPID PANEL Routine 04/01/2018 DX MAMMO INCL CAD BI Routine 11/27/2017 10:24 AM EDT Solitary cyst of left breast from Last 3 Months or Most Recently Relevant to Health Maintenance Results * Cervical Cancer Screening: HPV (05/01/2023) [facility] Cervical Cancer Screening: HPV negative,a bstracted [facility] Provider HEALTH MAINTENANCE Final Result * HIV Screening (05/01/2021) [facility] HIV Screening ABSTRACTED [facility] Provider HEALTH MAINTENANCE Final Result * Hepatitis C Screening (02/17/2020) [facility] Hepatitis C Screening ABSTRACTED [facility] Provider HEALTH MAINTENANCE Final Result * Annual BMP Blood Test (05/14/2018) [facility] Annual BMP Blood Test ABSTRACTED Result [facility] Provider HEALTH MAINTENANCE Final Result * (ABNORMAL) Lipid panel (04/01/2018) [facility] LDL/HDL Ratio 3 0 - 4 Triglycerides 117 0 - 150 mg/dL Cholesterol 117 0 - 200 mg/dL HDL 37(A) >=40 mg/dL LDL Cholesterol 57 0 - 100 mg/dL Blood Venous blood specimen / Unknown Result [facility] Provider LAB BLOOD ORDERABLES Melissa l Result * DX MAMMO INCL CAD BI (11/27/2017 10:24 AM EDT) Anatomical Region Laterality Modality Mammography 11/07/2017 2:21 PM EDT Narrative 11/27/2017 2:18 PM EDT This is a summary report. The complete report is available in the patient's medical record. If you cannot access the medical record, please contact the sending organization for a detailed fax or copy. Bilateral mammogram. Limited ultrasound of the left breast. History lump in the left breast adjacent to the nipple. At 3:00. Negative family history for breast cancer No prior mammograms aren't available for comparison. Routine images of both breast were obtained as well as magnification views of the breast in straight lateral projections. Reviewed with CAD. Breast tissue is heterogeneously dense limiting sensitivity of mammography. There are bilateral rounded and smudgy microcalcifications in the anterior breasts most of them revealed the appearance of milk of calcium on straight lateral views. No focal abnormalities identified at 3:00 in the left breast. Limited ultrasound of the left breast upper outer and and lower outer quadrants was performed directed by the patient to the area of palpable abnormality at 3:00. It corresponds to septated cyst measuring 0.7 x 0.4 x 0.4 cm and adjacent focus of multiple cystic spaces with solid components measuring 0.5 x 0.5 x 0.4 cm. Ultrasound-guided biopsy with clip placement is recommended. Conclusions: Probably benign microcalcifications in both breasts. Six-month follow-up examination is recommended which could be limited to magnified straight lateral views. Global abnormality corresponds to a complex cystic lesions. Ultrasound- guided biopsy with clip placement is recommended. Findings were discussed with the patient. Appointment for the ultrasound-guided biopsy as well as six-month follow-up mammograms was scheduled. BI-RADS 4A, low suspicion for malignancy. Procedure Note Ana Hernandez MD - 08/02/2022 This is a summary report. The complete report is available in thepatient's medical record. If you cannot access the medical record, pleasecontact the sending organization for a detailed fax or copy. Bilateral mammogram. Limited ultrasound of the left breast. History lump in the left breast adjacent to the nipple. At 3:00. Negativefamily history for breast cancer No prior mammograms aren't available for comparison. Routine images ofboth breast were obtained as well as magnification views of the breast instraight lateral projections. Reviewed with CAD. Breast tissue is heterogeneously dense limiting sensitivity ofmammography. There are bilateral rounded and smudgy microcalcifications inthe anterior breasts most of them revealed the appearance of milk ofcalcium on straight lateral views. No focal abnormalities identified at3:00 in the left breast. Limited ultrasound of the left breast upper outer and and lower outerquadrants was performed directed by the patient to the area of palpableabnormality at 3:00. It corresponds to septated cyst measuring 0.7 x 0.4 x0.4 cm and adjacent focus of multiple cystic spaces with solid componentsmeasuring 0.5 x 0.5 x 0.4 cm. Ultrasound-guided biopsy with clip placementis recommended. Conclusions: Probably benign microcalcifications in both breasts.Six-month follow-up examination is recommended which could be limited tomagnified straight lateral views. Global abnormality corresponds to acomplex cystic lesions. Ultrasound-guided biopsy with clip placement isrecommended. Findings were discussed with the patient. Appointment for theultrasound-guided biopsy as well as six-month follow-up mammograms wasscheduled. BI-RADS 4A, low suspicion for malignancy. Viri Pierce [facility] IM BI PROCEDURES Final Result from Last 3 Months or Most Recently Relevant to Health Maintenance Insurance [employer] Care Teams Accounts Payable Associate Relationship Specialty Start Date End Date Rene Kurtz MD [address] [place] [id number] [facility] - General 11/24/08
== END 2024-10-16 14:22 | disposition home or self-care (01) ==
PROVIDERS: PCP Internal Medicine; Visit Provider Internal Medicine
DX: M25.512 Pain in left shoulder (principal); I10 Essential (primary) hypertension

== ENCOUNTER → 2024-10-16 13:46 | Outpatient (BNVA) | payer OTHER, SELFPAY | PROVIDERS: PCP Internal Medicine; Visit Provider Internal Medicine ==

== ENCOUNTER 2024-11-07 11:27 | Outpatient (AMB) | payer OTHER, SELFPAY ==
[2024-11-07 11:37] VITALS: BP 120/80; PULSE 76; RESP 18; TEMP 36.8; O2SAT 96; BMI 32.2
--- NOTE | 2024-11-07 11:37 | MHC.PC.OV ---
Vital Signs 11/07/24 11:37 Height 5 ft 3 in Weight 182 lb BMI 32.2 BP 120/80 Blood Pressure Location Lt brachial Position Sitting Respiration 18 Pulse 76 Pulse Source Pulse Oximeter Temp 98.3 F Temp Source Oral Pulse Oximetry (%) 96 Oxygen Delivery Method Room Air Intake Visit Reasons: Annual PE Intake Note: Pt is here today for PE. Allergies Sulfa (Sulfonamide Antibiotics) [SULFA (SULFONAMIDE ANTIBIOTICS)] Allergy (Unknown, Verified 11/07/24 11:37) HIVES Medication List - Last Reconciled 11/07/24 by Melanie Beaulieu MD acetaminophen (Tylenol Extra Strength) 1,000 mg (2 x 500 mg) PO Q6H PRN albuterol sulfate 90 mcg/actuation 1 inh inhalation QID PRN ascorbic acid (vitamin C) mg PO DAILY cholecalciferol (vitamin D3) 50 mcg PO DAILY cyclobenzaprine mg PO PRN fluticasone propionate 50 mcg/actuation (Flonase Allergy Relief) 1 spray intranasal BID PRN magnesium oxide 400 mg PO DAILY melatonin 10 mg PO BEDTIME PRN olmesartan 10 mg (2 x 5 mg) PO DAILY polyethylene glycol 3350 (Miralax) 17 grams PO DAILY PRN sucralfate 10 mL PO BEDTIME Tobacco use date assessed: 11/07/24 Dental Screening Dental Screen Date: 11/07/24 Did you have a dental visit in the last 12 months?: Yes Did you have a dental problem in the last 6 months where you did not have access to dental care?: No Was dental information given to patient?: Patient has dentist HPI Annual PE HPI Details Pt presents for PE. She reports intermittent episodes of right upper quadrant abdominal pain after eating fatty foods like ground beef or heavy sauces, getting more frequent over last few months. Patient denies nausea vomiting fever chills. PFSH Medical History Obesity Goiter Left foot pain Vitamin D deficiency Dysuria Overweight Normal pelvic exam Annual physical exam Hypertension Migraines Seasonal allergies Surgical History History of esophagogastroduodenoscopy (EGD) Hx of tubal ligation Hx of hernia repair Family History Mother Lupus Hypertension Father Hypertension High cholesterol Diabetes Maternal Aunt Osteoporosis Social History Household Members Other:: , 3 children 24-13, works in [employer] Housing: House Alcohol intake: current Alcohol intake frequency: holidays/special occasions only Patient Tobacco Use Status: Never used Tobacco e-Cigarette/Vaping Use: Never Used service: No Current occupational status: employed 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 1. Little interest or pleasure in doing things: not at all 2. Feeling down, depressed, or hopeless: not at all 3. Trouble falling or staying asleep, or sleeping too much: not at all 4. Feeling tired or having little energy: more than half the days 5. Poor appetite or overeating: not at all 6. Feeling bad about yourself - or that you are a failure or have let yourself or your family down: not at all 7. Trouble concentrating on things, such as reading the newspaper or watching television: not at all 8. Moving or speaking so slowly that other people could have noticed. Or the opposite - being so fidgety or restless that you have been moving around a lot more than usual: not at all 9. Thoughts that you would be better off or of hurting yourself in some way: not at all Total score: 2 Depression Screening Interpretation: Negative Depression Screening Done: Yes 50996 - PHQ-9 Billing: Yes Source: Developed by Drs. Greg Mendoza, Charley Hunter, Ole Edge and colleagues, with an educational teresa from [employer]. Thrive Questionnaire Date Thrive assessed: 11/07/24 I am a: Patient What is your living situation today?: I have a steady place to live Within the past 12 months, did the food you bought not last and you didn't have the money to get more?: Never true Within the past 12 months, did you worry whether your food would run out before you got money to buy more?: Never true Do you have trouble paying for medicines?: No Do you have trouble getting transportation to medical appointments?: No Do you have trouble paying your heating and electricity bill?: No Do you have trouble taking care of your child, family member or friend?: No Do you have trouble with day-to-day activities such as bathing, preparing meals, shopping, managing finances, etc.?: I choose not to answer this question Are you currently unemployed and looking for a job?: No Are you interested in more education?: No Please select the resources that you would like help with: None Currently or been in a relationship where the following occur: No concerns reported THRIVE Score: 0 AUDIT C Alcohol Use Questionnaire (AUDIT-C) 1. How often do you have a drink containing alcohol?: Never 3. How often do you have six or more drinks on one occasion?: Never Total Score: 0 CLARK-7 AMB Questionnaire CLARK-7 Date CLARK - 7 assessed: 11/07/24 Feeling nervous, anxious, or on edge: 0 = Not at all Not being able to stop or control worryin = Not at all Worrying too much about different things: 0 = Not at all Trouble relaxin = Not at all Being so restless that it is hard to sit still: 1 = Several days Becoming easily annoyed or irritable: 0 = Not at all Feeling afraid as if something awful might happen: 0 = Not at all Total CLARK-7 score (0-4 normal; 5-9 mild; 10-14 moderate; 15-21 severe): 1 Source: Developed by Drs. Greg Mendoza, Charley Hunter, Ole Edge and colleagues, with an educational teresa from [employer]. CLARK-7 Assessment Billing CLARK-7 Assessment Tool: CLARK-7 Assessment 87808 Review of Systems Const All systems reviewed & are unremarkable except as noted in HPI and below Eyes Reports no additional complaints ENT Reports no additional complaints Card Reports no additional complaints Resp Reports no additional complaints GI Reports no additional complaints Reports no additional complaints Musc Reports no additional complaints Physical exam (Primary Care) Vital Signs: Last Vital Signs Temp 98.3 F 11/07/24 11:37 Pulse 76 11/07/24 11:37 Resp 18 11/07/24 11:37 BP 120/80 11/07/24 11:37 Pulse Ox 96 11/07/24 11:37 Oxygen Delivery Method Room Air 11/07/24 11:37 BMI result Body Mass Index 32.2 Tobacco/Smoking Status: Tobacco use Status Tobacco use date assessed 11/07/24 11/07/24 11:38 Patient Tobacco Use Status Never used Tobacco 11/07/24 11:38 e-Cigarette/Vaping Use Never Used 11/07/24 11:38 PHQ-9: PHQ-9 Score PHQ-9: Total score 2 11/07/24 12:09 Depression Screening Interpretation: Negative Thrive Assessment: Date of Thrive Assessment Date Thrive assessed 11/07/24 11/07/24 11:38 Currently or been in a relationship where the following occur: No concerns reported Const General: no acute distress HENMT Head: Yes normal to inspection Ears: hearing grossly normal bilaterally Face and sinus: Yes normal facial exam Mouth: Normal oral and palatal mucosa present Eyes General: appearance normal, both eyes and all related structures Neck Neck: Yes no lymphadenopathy and Yes supple Resp Effort & Inspection: normal respiratory effort Auscultation: clear to auscultation bilaterally Cardio Rhythm: regular rhythm Heart sounds: S1 normal heart sound present and S2 normal heart sound present GI Inspection: Yes normal to inspection Palpation (GI): Soft to palpation, Tenderness to palpation present (GI) in the RUQ; Lo's sign negative and with no rebound tenderness and No hepatosplenomegaly present Percussion: Yes normal to percussion Auscultation: normal bowel sounds Coding Level of Care Code Est Pt Prev Care 40-64y(97030) Diagnoses Other forms of systemic lupus erythematosus, unspecified organ involvement status M32.8 Systemic lupus erythematosus organ involvement: unspecified Systemic lupus erythematosus type: other Annual physical exam Z00.00 Hypertension I10 Abdominal pain R10.9 Additional Codes CLARK-7 Assessment Billing - CLARK-7 Assessment Tool: CLARK-7 Assessment 45316 ([id number]) PHQ-9 - 62675 - PHQ-9 Billing: Yes ([id number]) Assessment & Plan Assessment & Plan (1) SLE (systemic lupus erythematosus): Comment: Diagnosed 05/2022 +ve HELEN, + dsDNA, arthralgias, fatigue, skin rashes Started on Plaquenil 05/2022 DC 08/2022 due to GI upset, established with shoe designer, no active disease Code(s): M32.9 - Systemic lupus erythematosus, unspecified Category: Medical Qualifiers: Systemic lupus erythematosus organ involvement: unspecified Systemic lupus erythematosus type: other Qualified Code(s): M32.8 - Other forms of systemic lupus erythematosus Plan: Patient follows up with shoe designer annually (2) Annual physical exam: Comment: Negative Cologuard August 2024, established with gas plumbing inspector Code(s): Z00.00 - Encounter for general adult medical examination without abnormal findings Category: Medical Plan: Well-balanced diet regular exercise decreasing caloric intake and weight loss discussed with the patient. She is established with gas plumbing inspector for annual Pap is up-to-date with the mammogram and had a negative Cologuard (3) Hypertension: Code(s): I10 - Essential (primary) hypertension Category: Medical Plan: Continue olmesartan follow-up in 6 months (4) Abdominal pain: Code(s): R10.9 - Unspecified abdominal pain Category: Medical Plan: Obtain abdominal ultrasound to rule out gallstones Orders: Orders US abdomen complete Today R10.9 - Unspecified abdominal pain
--- OUTSIDE RECORDS SUMMARY | 2024-11-07 15:07 | XMS_ITS | Clinical Summary ---
Author Organization [facility] Address [address] [place] [address] Phone Support Name Relationship Address Phone David Damon Daughter 26 08/15 [place] [address] Avinash Oneill ??n Spouse [address] [place] [address] Care Team Providers Care Micropaleontologist Name Role Phone Rene Kurtz MD Primary Care Provider [phone] Allergies Active Allergy Reactions Criticality Noted Date [...] Migraine 05/09/2024 Overview (05/09/2024): Sees Neurology at [place] Obesity (BMI 30.0-34.9) 03/12/2019 Thoracic osteoarthritis 03/12/2019 Essential hypertension 02/20/2017 Gastroesophageal reflux disease 10/10/2016 Abdominal pain, chronic, epigastric 03/03/2014 Allergic rhinitis 05/28/2009 Immunizations Name Administration Dates Next Due DTP 10/26/1983, 9,06/06/1979, 979,02/06/1979 Hepatitis B (Eiodzrl-O-Pjnjw , Recombivax HB-Adult) 19yo and older 10/16/2007,06/27/2007 [...] PROCEDURE: HISTORICAL TUBAL LIGATION ESOPHAGOGASTRODUODENOSCOPY 02/21/14 PROCEDURE: [place] ESOPHAGOGASTRODUODENOSCOPY TRANSORAL DIAGNOSTIC; COMMENT: normal BREAST LUMPECTOMY [...] for your loved ones. For example, child care center administrator or elderly care for an older adult? [...] oz) F Vag-S pont None Living Delivery Location:[place] 004 Term 38w 0d 3062 g (108 oz) M Vag-S pont None Living Delivery Location:[place] 008 Term 38w 0d 3402 g (120 oz) M Vag-S pont Living Delivery Location:[facility] Filed Vital Signs Vital Sign Reading Time [...] EDT Office Visit Obstetrics & Gynecology - [facility] [address] [place] [phone] Viri Pierce CNM [address] [place] [address] Health Maintenance Due Date Last [...] Results * Cervical Cancer Screening: HPV (05/01/2023) [facility] Cervical Cancer Screening: HPV negative,a bstracted [facility] Provider HEALTH MAINTENANCE Final Result * HIV Screening (05/01/2021) [facility] HIV Screening ABSTRACTED [facility] Provider HEALTH MAINTENANCE Final Result * Hepatitis C Screening (02/17/2020) [facility] Hepatitis C Screening ABSTRACTED [facility] Provider HEALTH MAINTENANCE Final Result * Annual BMP Blood Test (05/14/2018) [facility] Annual BMP Blood Test ABSTRACTED Result [facility] Provider HEALTH MAINTENANCE Final Result * (ABNORMAL) Lipid panel (04/01/2018) [facility] LDL/HDL Ratio 3 0 - 4 Triglycerides 117 0 - 150 mg/dL Cholesterol 117 0 - 200 mg/dL HDL 37(A) >=40 mg/dL LDL Cholesterol 57 0 - 100 mg/dL Blood Venous blood specimen / Unknown Result [facility] Provider LAB BLOOD ORDERABLES Melissa l [...] 4A, low suspicion for malignancy. Viri Pierce [facility] IM BI PROCEDURES Final Result from Last 3 Months or Most Recently Relevant to Health Maintenance Insurance [employer] Care Teams Micropaleontologist Relationship Specialty Start Date End Date Rene Kurtz MD [address] [place] [id number] [facility] - General 11/24/08
== END 2024-11-07 12:18 | disposition home or self-care (01) ==
LOC: HO.HMCC 11:28
PROVIDERS: PCP Internal Medicine; Visit Provider Internal Medicine
DX: M32.8 Other forms of systemic lupus erythematosus (principal); Z00.00 Encounter for general adult medical examination without abnormal findings; I10 Essential (primary) hypertension; R10.9 Unspecified abdominal pain

== ENCOUNTER → 2024-11-07 11:27 | Outpatient (BNVA) | payer OTHER, SELFPAY | PROVIDERS: PCP Internal Medicine; Visit Provider Internal Medicine | DX: Z00.00 Encounter for general adult medical examination without abnormal findings (principal); M32.8 Other forms of systemic lupus erythematosus; I10 Essential (primary) hypertension; R10.9 Unspecified abdominal pain | CPT/HCPCS: 96127 ==

== ENCOUNTER 2024-11-28 08:39 | Outpatient (AMB) | payer OTHER, SELFPAY ==
--- NOTE | 2024-11-28 08:45 | MHC.OFFWIV ---
Intake Vital Signs 11/28/24 08:47 Weight 182 lb BP 130/90 H Blood Pressure Location Lt brachial Position Sitting Pulse 92 Pulse Source Pulse Oximeter Pulse Oximetry (%) 97 Oxygen Delivery Method Room Air Intake Visit Reasons: EP UTI? Intake Note: Patient here for frequent urination, burning sensation and full bladder feeling that started Monday. Patient Tobacco Use Status: Never used Tobacco Allergies Sulfa (Sulfonamide Antibiotics) [SULFA (SULFONAMIDE ANTIBIOTICS)] Allergy (Unknown, Verified 11/28/24 08:46) HIVES Do you need a note to return to daycare/school/sports/work: No HPI HPI Comments History of Present Illness Details History of Present Illness - The patient is a 43-year-old female presenting with symptoms suggestive of a urinary tract infection. - She reports frequent urination occurring approximately every half hour, accompanied by a burning sensation. - She also describes pain in the lower back region. - These symptoms started two days ago, on Monday. - She has not experienced any fevers. - Denies any prior history of kidney stones. Physical Exam General: Cooperative, healthy appearing, comfortable, no acute distress and well developed Orientation: Patient oriented x3 Limitations: No limitations Head: Normal to inspection Ears: Hearing grossly normal bilaterally Nose: Normal External nose present Face and sinus: Normal facial exam Eyes: Appearance normal, both eyes and all related structures Neck: Normal visual inspection and Yes full ROM Respiratory: Normal respiratory effort and able to speak in complete sentences. Skin: No rashes or lesions noted Neuro: Patient oriented x3 Extremities: Normal to inspection [facility] Medical History Obesity Goiter Left foot pain Vitamin D deficiency Dysuria Overweight Normal pelvic exam Annual physical exam Hypertension Migraines Seasonal allergies Surgical History History of esophagogastroduodenoscopy (EGD) Hx of tubal ligation Hx of hernia repair Family History Mother Lupus Hypertension Father Hypertension High cholesterol Diabetes Maternal Aunt Osteoporosis Social History Household Members Other:: , 3 children 24-13, works in [employer] [employer] Housing: House Alcohol intake: current Alcohol intake frequency: holidays/special occasions only Patient Tobacco Use Status: Never used Tobacco e-Cigarette/Vaping Use: Never Used service: No Current occupational status: employed 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 Cognitive needs: No Hearing needs: No Vision needs: No Review of Systems Const All systems reviewed & are unremarkable except as noted in HPI and below Physical Exam Vital Signs: Last Vital Signs Pulse 92 11/28/24 08:47 BP 130/90 H 11/28/24 08:47 Pulse Ox 97 11/28/24 08:47 Oxygen Delivery Method Room Air 11/28/24 08:47 Assessment & Plan Assessment & Plan (1) UTI (urinary tract infection): Code(s): N39.0 - Urinary tract infection, site not specified Qualifiers: Urinary tract infection type: acute cystitis Hematuria presence: with hematuria Qualified Code(s): N30.01 - Acute cystitis with hematuria Plan: UA 1+ leuks, 1+ protein and 3+ blood. I have diagnosed the patient with acute cystitis based on her symptoms and urinalysis findings. Cefuroxime is prescribed, to be taken twice daily for five days, to treat the infection, considering the patient's sulfa allergy. Monitoring for changes in pain, which may indicate kidney stones, is advised. The patient is instructed to maintain hydration to aid in recovery and to seek emergency care if symptoms worsen. The prescription is sent to her preferred pharmacy, [facility] on [facility]. Not sending culture. Patient was informed and verbally consented to the use of an ambient scribe for clinic note documentation during this visit. Medications: New cefuroxime axetil 500 mg PO Q12H 10 tabs 0RF Coding Level of Care Code Est Pt Level 3 (70861) Diagnoses Acute cystitis with hematuria N30.01 Urinary tract infection type: acute cystitis Hematuria presence: with hematuria
[2024-11-28 08:47] VITALS: BP 130/90; PULSE 92; O2SAT 97
--- OUTSIDE RECORDS SUMMARY | 2024-11-28 09:12 | XMS_ITS | Clinical Summary ---
Author Organization [facility] Address [address] [place] [address] Phone Support Name Relationship Address Phone David Damon Daughter 26 08/15 [place] [address] Avinash Oneill ??n Spouse [address] [place] [address] Care Team Providers Care Photogrammetric Engineer Name Role Phone Rene Kurtz MD Primary Care Provider [phone] Allergies Active Allergy Reactions Criticality Noted Date [...] Migraine 05/09/2024 Overview (05/09/2024): Sees Neurology at [place] Obesity (BMI 30.0-34.9) 03/12/2019 Thoracic osteoarthritis 03/12/2019 Essential hypertension 02/20/2017 Gastroesophageal reflux disease 10/10/2016 Abdominal pain, chronic, epigastric 03/03/2014 Allergic rhinitis 05/28/2009 Immunizations Name Administration Dates Next Due DTP 10/26/1983, 9,06/06/1979, 979,02/06/1979 Hepatitis B (Butnewn-C-Vmwph , Recombivax HB-Adult) 19yo and older 10/16/2007,06/27/2007 [...] PROCEDURE: HISTORICAL TUBAL LIGATION ESOPHAGOGASTRODUODENOSCOPY 02/21/14 PROCEDURE: [place] ESOPHAGOGASTRODUODENOSCOPY TRANSORAL DIAGNOSTIC; COMMENT: normal BREAST LUMPECTOMY [...] for your loved ones. For example, child center assistant or elderly care for an older adult? [...] Labor Labor/2nd/3rd Weight Sex Type Anes PTL Hsanae A1 A5 Name Clin 997 Term 41w 0d 3062 g (108 oz) F Vag-S pont None Living Delivery Location:[place] 004 Term 38w 0d 3062 g (108 oz) M Vag-S pont None Living Delivery Location:[place] 008 Term 38w 0d 3402 g (120 oz) M Vag-S pont Living Delivery Location:[facility] Filed Vital Signs Vital Sign Reading Time [...] EDT Office Visit Obstetrics & Gynecology - [facility] [address] [place] [phone] Viri Pierce CNM [address] [place] [address] Health Maintenance Due Date Last Done Comments Hepatitis B Vaccines (3 of 3 - 19+ 3-dose series) 12/26/2007 10/16/2007, 06/27/2007 DTaP,Tdap,and Td Vaccines (7 - Td or Tdap) 02/27/2020 02/26/2010, 03/04/1994, 10/26/1983, Additional history exists Colorectal Cancer Screening: Colonoscopy 07/17/2022 Hypertension/CHF/CAD Annual BMP Blood Test 07/28/2022 05/14/2018 Cholesterol Screening (Lipid Panel) 04/01/2023 04/01/2018 COVID-19 Vaccine ( season) 2024 Influenza Vaccine (Season Ended) 2025 Breast Cancer Screening 06/23/2025 06/23/2023, 11/27 Depression [...] age to complete this topic Meningococcal B Vaccine Aged Out No l onger eligible based on patient's age to complete [...] Results * Cervical Cancer Screening: HPV (05/01/2023) [facility] Cervical Cancer Screening: HPV negative,a bstracted [facility] Provider HEALTH MAINTENANCE Final Result * HIV Screening (05/01/2021) [facility] HIV Screening ABSTRACTED [facility] Provider HEALTH MAINTENANCE Final Result * Hepatitis C Screening (02/17/2020) [facility] Hepatitis C Screening ABSTRACTED [facility] Provider HEALTH MAINTENANCE Final Result * Annual BMP Blood Test (05/14/2018) [facility] Annual BMP Blood Test ABSTRACTED Result [facility] Provider HEALTH MAINTENANCE Final Result * (ABNORMAL) Lipid panel (04/01/2018) [facility] LDL/HDL Ratio 3 0 - 4 Triglycerides 117 0 - 150 mg/dL Cholesterol 117 0 - 200 mg/dL HDL 37(A) >=40 mg/dL LDL Cholesterol 57 0 - 100 mg/dL Blood Venous blood specimen / Unknown Result [facility] Provider LAB BLOOD ORDERABLES Melissa l [...] 4A, low suspicion for malignancy. Viri Pierce [facility] IM BI PROCEDURES Final Result from Last 3 Months or Most Recently Relevant to Health Maintenance Insurance [employer] Care Teams Photogrammetric Engineer Relationship Specialty Start Date End Date Rene Kurtz MD [address] [place] [address] [facility] - General 11/24/08
== END 2024-11-28 09:30 | disposition home or self-care (01) ==
PROVIDERS: PCP Internal Medicine; Visit Provider Physician Assistant
DX: Z13.9 Encounter for screening, unspecified (principal); N30.01 Acute cystitis with hematuria

== ENCOUNTER 2024-11-28 10:00 | Outpatient (REF) | payer OTHER, SELFPAY ==
--- NOTE | ~2024-11-28 | US_ITS ---
EXAMINATION: US ABDOMEN HISTORY: R10.9 - Unspecified abdominal pain TECHNIQUE: Real-time grayscale ultrasound imaging of the abdomen was performed and images were reviewed. COMPARISON: Correlation is made with a renal ultrasound dated 11/04/2021. FINDINGS: Liver: The right lobe of the liver measures 16.7 cm in size. The left lobe of the liver measures 8.1 cm in size. The liver demonstrates normal homogeneous echotexture. There is a 5 mm calcification in the subcapsular right lobe. No focal mass or intrahepatic biliary ductal dilatation is identified. There is normal hepatopedal flow in the portal vein. Gallbladder and biliary tree: The gallbladder is unremarkable, without evidence of calculi, wall thickening, or pericholecystic fluid. There is no sonographic Lo sign. The common bile duct is normal in caliber measuring 3 mm. Kidneys: The right kidney measures 10.8 cm in length. The left kidney measures 11.4 cm in length. The kidneys are unremarkable, without evidence of masses, hydronephrosis, or calculi. Pancreas: The pancreatic head, neck, and body are unremarkable. The pancreatic tail is obscured by bowel gas. Spleen: The spleen is normal in size and contour, measuring 8.9 cm in length. Abdominal aorta and inferior vena cava: The visualized portions of the abdominal aorta and inferior vena cava are normal in caliber. There is no free fluid in the abdomen. US/US abdomen complete IMPRESSION: 5 mm hepatic calcification. Otherwise unremarkable abdominal ultrasound. Electronically signed by: Greg Chakraborty MD 11/28/2024 10:34 AM EDT
--- OUTSIDE RECORDS SUMMARY | 2024-11-28 11:45 | XMS_ITS | Clinical Summary ---
Author Organization [facility] Address [address] [place] [address] Phone Support Name Relationship Address Phone David Damon Daughter 26 08/[address] [place] [address] Avinash Oneill ??n Spouse [address] [place] [address] Care Team Providers Care [employer] Name Role Phone Rene Kurtz MD Primary Care Provider [phone] Allergies Active Allergy Reactions Criticality Noted Date [...] Migraine 05/09/2024 Overview (05/09/2024): Sees Neurology at [place] Obesity (BMI 30.0-34.9) 03/12/2019 Thoracic osteoarthritis 03/12/2019 Essential hypertension 02/20/2017 Gastroesophageal reflux disease 10/10/2016 Abdominal pain, chronic, epigastric 03/03/2014 Allergic rhinitis 05/28/2009 Immunizations Name Administration Dates Next Due DTP 10/26/1983, 9,06/06/1979, 979,02/06/1979 Hepatitis B (Knvldpn-L-Ityft , Recombivax HB-Adult) 19yo and older 10/16/2007,06/27/2007 [...] PROCEDURE: HISTORICAL TUBAL LIGATION ESOPHAGOGASTRODUODENOSCOPY 02/21/14 PROCEDURE: [place] ESOPHAGOGASTRODUODENOSCOPY TRANSORAL DIAGNOSTIC; COMMENT: normal BREAST LUMPECTOMY [...] for your loved ones. For example, child welfare worker or elderly care for an older adult? [...] oz) F Vag-S pont None Living Delivery Location:[place] 004 Term 38w 0d 3062 g (108 oz) M Vag-S pont None Living Delivery Location:[place] 008 Term 38w 0d 3402 g (120 oz) M Vag-S pont Living Delivery Location:[facility] Filed Vital Signs Vital Sign Reading [...] Visit Obstetrics & Gynecology - [facility] [address] [place] [phone] Viri Pierce CNM [address] [place] [address] Health Maintenance Due Date Last [...] Results * Cervical Cancer Screening: HPV (05/01/2023) [facility] Cervical Cancer Screening: HPV negative,a bstracted [facility] Provider HEALTH MAINTENANCE Final Result * HIV Screening (05/01/2021) [facility] HIV Screening ABSTRACTED [facility] Provider HEALTH MAINTENANCE Final Result * Hepatitis C Screening (02/17/2020) [facility] Hepatitis C Screening ABSTRACTED [facility] Provider HEALTH MAINTENANCE Final Result * Annual BMP Blood Test (05/14/2018) [facility] Annual BMP Blood Test ABSTRACTED Result [facility] Provider HEALTH MAINTENANCE Final Result * (ABNORMAL) Lipid panel (04/01/2018) [facility] LDL/HDL Ratio 3 0 - 4 Triglycerides 117 0 - 150 mg/dL Cholesterol 117 0 - 200 mg/dL HDL 37(A) >=40 mg/dL LDL Cholesterol 57 0 - 100 mg/dL Blood Venous blood specimen / Unknown Result [facility] Provider LAB BLOOD ORDERABLES Melissa l [...] Health Maintenance Insurance [employer] Care Teams [employer] Relationship Specialty Start Date End Date Rene Kurtz MD [address] [place] [phone] [facility] - General 11/24/08
== END 2024-11-28 10:01 | disposition home or self-care (01) ==
LOC: HO.HMGCX 10:00
PROVIDERS: PCP Internal Medicine; Visit Provider Internal Medicine
DX: R10.9 Unspecified abdominal pain (principal); N30.01 Acute cystitis with hematuria
CPT/HCPCS: 76700; 81003

== ENCOUNTER → 2024-11-28 10:04 | Outpatient (BNV) | payer OTHER, SELFPAY | PROVIDERS: PCP Internal Medicine; Visit Provider Radiology Diagnostic Radiology | DX: R10.9 Unspecified abdominal pain (principal) | CPT/HCPCS: 76700 ==

== ENCOUNTER 2025-01-23 09:45 | Outpatient (REF) | payer OTHER, SELFPAY ==
--- OUTSIDE RECORDS SUMMARY | 2025-01-23 10:48 | XMS_ITS | Clinical Summary ---
Author Organization [facility] Address [address] [place] [address] Phone Support Name Relationship Address Phone David Damon Daughter 26 08/15 [place] [address] Avinash Oneill ??n Spouse [address] [place] [address] Care Team Providers Care Sr Community Manager Name Role Phone Rene Kurtz MD Primary Care Provider [phone] Allergies Active Allergy Reactions Criticality Noted Date [...] 1 (one) time each day. 4 Active fluconazole (DIFLUCAN) 150 mg tablet TAKE 1 TABLET BY MOUTH EVERY 3 DAYS FOR 2 DOSES 5 Active fluconazole (DIFLUCAN) 150 mg tablet Take 1 tab by mouth now. May repeat in 72 hours if still symptomatic. 2 tablet 5 Active Active Problems Problem Noted Date Diagnosed Date Chronic sinusitis 12/10/2024 Seasonal allergies 12/10/2024 Primary hypertension 12/10/2024 Migraine headache 12/10/2024 Thoracic arthritis 12/10/2024 Hypoglycemia 05/09/2024 Migraine 05/09/2024 Overview (05/09/2024): Sees Neurology at [place] Obesity (BMI 30.0-34.9) 03/12/2019 Thoracic osteoarthritis 03/12/2019 Essential hypertension 02/20/2017 Gastroesophageal reflux disease 10/10/2016 Abdominal pain, chronic, epigastric 03/03/2014 Allergic rhinitis 05/28/2009 Encounters Date Type Department Care Team Description 12/10/2024 Telephone Obstetrics & Gynecology [address] [address] Sapna Servin RN lab work 12/09/2024 9:45 AM EDT Office Visit Obstetrics & Gynecology [address] [phone] Viri Pierce CNM Encounter for gynecological examination without abnormal finding (Primary Dx); Urinary tract infection with hematuria, site unspecified; Screen for STD (sexually transmitted disease); Overweight from Last 3 Months Immunizations Name Administration Dates Next Due DTP 10/26/1983, 9,06/06/1979,1978,02/06/1979 DTaP (Infanrix) 6wks to less than 7yo ,07/17/1979,06/06/1979,1978,02/06/1979 Hepatitis B (Efbgcju-Y-Grwuq , Recombivax HB-Adult) 19yo and older 10/16/2007,06/27/2007 IPV Inactivated polio (Ipol) 6wks and older 10/26/1983,07/07/1979,06/17/1979,1978,02/06/1979 Influenza Quadravalent, MDCK , 0.5ml, preservative free (Flucelvax) 6mo and older 06/12/2023 Influenza Quadrivalent, 0.5m l, preservative free (Fluarix; FluLaval; Fluzone) ages 6mo and older (Afluria) 3yo and older 07/21/2022,07/22/2021 MMR, measles mumps and rubel la Live (Priorix; M-M-R II) 12mo and older 03/10/1994,02/13/1980 OPV 10/26/1983, 9,06/17/1979,1978,02/06/1979 PPD Test 09/12/2014,09/02/2013,02/26/2010 Td Tetanus diptheria (Tdvax) 7yo and older 03/04/1994 Td, Unspecified 03/04/1994 Tdap Tetanus diptheria acell ular pertussis (Boostrix; Adacel) 7yo and older 02/26/2010 Varicella live (Varivax) 12m o and older 04/24/2013,03/27/2013 Surgical History Surgery Date Site/Laterality Comments TUBAL LIGATION 2008 PROCEDURE: HISTORICAL TUBAL LIGATION ESOPHAGOGASTRODUODENOSCOPY 02/21/14 PROCEDURE: [place] ESOPHAGOGASTRODUODENOSCOPY TRANSORAL DIAGNOSTIC; COMMENT: normal BREAST LUMPECTOMY [...] for your loved ones. For example, child protective services social worker or elderly care for an older [...] oz) F Vag-S pont None Living Delivery Location:[place] 004 Term 38w 0d 3062 g (108 oz) M Vag-S pont None Living Delivery Location:[place] 008 Term 38w 0d 3402 g (120 oz) M Vag-S pont Living Delivery Location:[facility] Last Filed Vital Signs Vital Sign Reading Time Taken Comments Blood Pressure 120/86 12/09/2024 9:32 AM EDT Pulse 94 12/09/2024 9:32 AM EDT Temperature - - Respiratory Rate - - Oxygen Saturation - - Inhaled Oxygen Concentration - - Weight 83.2 kg (183 lb 6.4 oz) 12/09/2024 9:32 A M EDT Height 160 cm (5' 3 ) 12/09/2024 9:32 AM EDT Body Mass Index 32.49 12/09/2024 9:32 AM EDT Plan of Treatment Health Maintenance Due Date Last Done Comments Hepatitis B Vaccines (3 of 3 - 19+ 3-dose series) 12/26/2007 10/16/2007, 06/27/2007 DTaP,Tdap,and Td Vaccines (8 - Td or Tdap) 02/27/2020 02/26/2010, 03/04/1994, 03/04/1994, Additional history exists Colorectal Cancer Screening: Colonoscopy 07/17/2022 Hypertension/CHF/CAD Annual BMP Blood Test 07/28/2022 05/14/2018 Cholesterol Screening (Lipid Panel) 04/01/2023 04/01/2018 COVID-19 Vaccine ( season) 2024 04/24/2021, 04/03/2021 Influenza Vaccine (Season Ended) 2025 06/12/2023, 07/21/2022, 07/22/2021 Depression Screening 07/24/2025 07/24/2024 Social Influencers of Health Screening 07/24/2025 07/24/2024 Breast Cancer Screening 09/25/2026 09/25/19 25, 06/23/2023, 06/23/2023, Additional history exists Cervical Cancer Screening: HPV 05/01/2028 05/01/2023 IPV Vaccines Completed 10/26/1983, 10/12, 07/07/1979, Additional history exists MMR Vaccines Completed 03/10/1994, [...] Procedure Name Priority Date/Time Associated Diagnosis Comments TRICHOMONAS VAGINALIS ANTIGEN Routine 12/09/2024 10:10 AM EDT Screen for STD (sexually transmitted disease) CULTURE URINE Routine 12/09/2024 10:10 AM EDT Urinary tract infection with hematuria, site unspecified CHLAMYDIA TRACHOMATIS AND NEISSERIA GONORRHOEAE PCR Routine 12/09/2024 10:10 AM EDT Screen for STD (sexually transmitted disease) WET PREP, GENITAL Routine 12/09/2024 10: 10 AM EDT Screen for STD (sexually transmitted disease) POC URINE AUTO W/O MICRO Routine 12/09/2024 9:44 AM EDT Urinary tract infection with hematuria, site unspecified MG MAMMO DIGITAL DIAGNOSTIC BILAT Routine 09/25/2024 8:18 AM EST HM HPV Routine 05/01/2023 HM HIV SCREENING Routine 05/01/2021 HM HEPATITIS C SCREENING Routine 02/17/2020 HM ANNUAL BMP BLOOD TEST Routine 05/14/2018 LIPID PANEL Routine 04/01/2018 from Last 3 Months or Most Recently Relevant to Health Maintenance Results * Trichomonas vaginalis antigen (12/09/2024 10:10 AM EDT) Trichomonas vaginalis Negative Negative 12/09/2024 1:31 PM EDT [facility] Vaginal Fluid Vaginal structure / Unknown Non-blood Collection / Unknown 12/09/2024 10:10 AM EDT 12/09/2024 12:26 PM EDT Viri HUERTA LAB MICROBIOLOGY - GENERAL ILENE WOO Final Result [facility] [address] [place] [address], * Chlamydia trachomatis and Neisseria gonorrhoeae molecular study (12/09/2024 10:10 AM EDT) Neisseria gonorrhoeae PCR Negative Negative LAB MOLECULAR DIAGNOSTICS METHOD 12/09/2024 2:47 PM EDT [facility] Chlamydia trachomatis PCR Negative Negative LAB MOLECULAR DIAGNOSTICS METHOD 12/09/2024 2:47 PM EDT [facility] Swab Cervix uteri structure / Unknown Non-blood Collection / Unknown 12/09/2024 10:10 AM EDT 12/09/2024 12:26 PM EDT [facility] LAB MICROBIOLOGY - GENERAL ORDE RABLES Final Result Performing Organization Address [facility]/ZIP Co de Phone Number [facility] [address] [place] [address], * Wet prep, genital (12/09/2024 10:10 AM EDT) Clue Cells, Wet Prep Negative Negative 12/09/2024 1:33 PM EDT [facility] Yeast, Wet Prep Negative Negative 12/09/2024 1:33 PM EDT [facility] Trichomonas, Wet Prep Indeterminate Negative 12/09/2024 1:33 PM EDT [facility] Comment:Refer to Trichomonas antigen. Vaginal Fluid Vaginal structure / Unknown Non-blood Collection / Unknown 12/09/2024 10:10 AM EDT 12/09/2024 12:26 PM EDT [facility] LAB MICROBIOLOGY - GENERAL CELIAE AMNA Final Result Performing Organization Address [facility] Co de Phone Number [facility] [address] [place] [address], [place] [phone] * (ABNORMAL) Culture urine (12/09/2024 10:10 AM EDT) Culture, Urine 10,000-49,000 CFU/mL Escherichia coli(A) BELÉN 12/11/2024 11:44 AM EDT [facility] Urine Urine specimen obtained by clean catch procedure / Unknown Non-blood Collection / Unknown 12/09/2024 10:10 AM EDT 12/09/2024 12:27 PM EDT Narrative [facility] - 12/11/2024 11:44 AM EDT Additional colony types present in insignificant amounts. Organism Antibiotic Method Susceptibility Escherichia coli Amoxicillin/Clavulanate BELÉN <=2 ug/ml: Susceptible Escherichia coli Ampicillin/Sulbactam BELÉN <=2 ug/ml: Susceptible Escherichia coli Piperacillin/Tazobactam BELÉN <=4 ug/ml: Susceptible Escherichia coli Cefazolin (Urine) BELÉN <=1 ug/ml: Susceptible Escherichia coli Cefoxitin BELÉN <=4 ug/ml: Susceptible Escherichia coli Ceftazidime BELÉN <=0.5 ug/ml: Susceptible Escherichia coli Ceftriaxone BELÉN <=0.25 ug/ml: Susceptible Escherichia coli Cefepime BELÉN <=0.12 ug/ml: Susceptible Escherichia coli Meropenem BELÉN <=0.25 ug/ml: Susceptible Escherichia coli Amikacin BELÉN 4 ug/ml: Susceptible Escherichia coli Gentamicin BELÉN <=1 ug/ml: Susceptible Escherichia coli Ciprofloxacin BELÉN <=0.06 ug/ml: Susceptible Escherichia coli Levofloxacin BELÉN <=0.12 ug/ml: Susceptible Escherichia coli Nitrofurantoin BELÉN <=16 ug/ml: Susceptible Escherichia coli Trimethoprim/Sulfamethoxazole BELÉN <=20 ug/ml: Susceptible Viri Pierce [facility] LAB MICROBIOLOGY - GENERAL ORDE AMNA Final Result [facility] [address] [place] [address], * (ABNORMAL) POC Urine Auto W/O Micro (12/09/2024 9:44 AM EDT) Leukocytes UA POC Positive(A) Negative Nitrite UA POC Negative Negative Urobilinogen UA POC Negative Negative Protein UA POC Positive(A) Negative PH UA POC 5.0 5.0 - 9.0 Blood UA POC Positive(A) Negative, Trace Specific [place] UA POC 1.025 1.001 - 1.035 Ketones UA POC Negative Negative Bilirubin UA POC Negative Negative Glucose UA POC Normal Normal, Trace Urine Urine specimen obtained by clean catch procedure / Unknown 12/09/2024 9:44 AM EDT Result [facility] Viri Pierce CNM POINT OF CARE TEST ENTER/EDIT O RDERABLES Final Result * MG Mammo Digital Diagnostic bilat (09/25/2024 8:18 AM EST) Anatomical Region Laterality Modality Breast Bilateral Mammography Result [facility] Provider IMG BI PROCEDURES Final R esult * Cervical Cancer Screening: HPV (05/01/2023) [facility] Cervical Cancer Screening: HPV negative,a bstracted Result [facility] Provider HEALTH MAINTENANCE Final Result * HIV Screening (05/01/2021) [facility] HIV Screening ABSTRACTED Result [facility] Provider HEALTH MAINTENANCE Final Result * Hepatitis C Screening (02/17/2020) [facility] Hepatitis C Screening ABSTRACTED Result [facility] Provider HEALTH MAINTENANCE Final Result * Annual BMP Blood Test (05/14/2018) [facility] Annual BMP Blood Test ABSTRACTED Result [facility] Provider HEALTH MAINTENANCE Final Result * (ABNORMAL) Lipid panel (04/01/2018) [facility] LDL/HDL Ratio 3 0 - 4 Triglycerides 117 0 - 150 mg/dL Cholesterol 117 0 - 200 mg/dL HDL 37(A) >=40 mg/dL LDL Cholesterol 57 0 - 100 mg/dL Blood Venous blood specimen / Unknown Result [facility] Historical Provider LAB BLOOD ORDERABLES Melissa l Result from Last 3 Months or Most Recently Relevant to Health Maintenance Insurance [employer] Care Teams Sr Community Manager Relationship Specialty Start Date End Date Rene Kurtz MD [address] [place] [id number] PCP - General 11/24/08
[2025-01-23 13:09] LABS: Urine Cytology See Pathology rpt
[2025-01-23 13:14] LABS: Appearance Urine Clear; Color Urine Yellow; Glucose Urine UA Negative (Negative); Leukocyte Esterase Urine Negative (Negative); Nitrite Urine Negative (Negative); PH 7.5 (5.0-9.0); Urine Blood Negative (Negative); Urine Ketones Negative (Negative); Urine Protein Negative (Neg-Trace)
[2025-01-23 13:18] LABS: Bacteria Urine None Seen (None Seen); Hyaline Casts Urine 0-2 /LPF (0-2); RBC Urine 0-2 /HPF (0-2); Squamous Epithelial Cell Urine 0-2 /HPF (0-2); WBC Urine 0-5 /HPF (0-5)
[2025-01-23 13:21] LABS: MANUAL DIFF FLAG NO
[2025-01-23 13:23] LABS: Basophils Percent Auto 0.3 % (0-2); Eosinophils Absolute Auto 0.6 X10*3/uL (0.0-0.4); Eosinophils Percent Auto 6.8 % (0-4); Hematocrit 38.4 % (37.0-47.0); Hemoglobin 13.2 g/dl (12.0-16.0); Imm Gran Abs Auto 0.03 X10*3/uL (0.00-0.03); Imm Gran Pct Auto 0.3 % (0.0-0.4); Lymphocytes Absolute Auto 2.4 X10*3/uL (1.2-4.9); Lymphocytes Percent Auto 28.1 % (20-40); Mean Corpuscular HGB Conc 34.4 g/dl (31.0-35.0); Mean Corpuscular Hemoglobin 30.6 pg (27.0-33.0); Mean Corpuscular Volume 88.9 fL (80.0-98.0); Mean Platelet Volume 10.3 fL (9.4-12.3); Monocytes Absolute Auto 0.7 X10*3/uL (0.1-1.2); Monocytes Percent Auto 7.8 % (2-11); Neutrophils Absolute Auto 4.9 x10*3/uL (2.0-8.3); Neutrophils Percent Auto 56.7 % (45-73); Platelet Count 241 X10*3/uL (160-400); Red Blood Count 4.32 X10*6/uL (4.20-5.50); Red Cell Distribution Width 13.2 % (11.0-16.0); White Blood Count 8.7 X10*3/uL (4.8-10.8)
[2025-01-23 13:41] LABS: Alanine Aminotransferase 17 U/L (0-31); Albumin Level 4.2 g/dL (3.5-5.0); Anion Gap 10 (12-20); Aspartate Amino Transferase 24 U/L (5-31); Bilirubin Total 0.3 mg/dL (0.0-1.0); Blood Urea Nitrogen 14 mg/dL (9-16); Carbon Dioxide 25 mmol/L (22-29); Chloride 105 mmol/L (96-108); Cholesterol 145 mg/dL (<200); Estimated Glomerular Filt Rate > 60; Glucose Fasting 86 mg/dL (60-99); Sodium 136 mmol/L (135-145); Total Protein 7.4 g/dL (6.5-8.0); Triglycerides 93 mg/dL (<150)
[2025-01-23 13:42] LABS: Alkaline Phosphatase 18 U/L (39-117); HDL Cholesterol 43 mg/dL (>40); LDL Cholesterol Calculated 84 mg/dL (<100)
[2025-01-23 14:01] LABS: TSH reflex Free T4 2.77 uIU/mL (0.32-4.0)
== END 2025-01-23 09:46 | disposition home or self-care (01) ==
LOC: HO.HMGCLDS 09:45
PROVIDERS: PCP Internal Medicine; Visit Provider Internal Medicine
DX: N30.01 Acute cystitis with hematuria (principal); I10 Essential (primary) hypertension; Z00.00 Encounter for general adult medical examination without abnormal findings
CPT/HCPCS: 36415; 80053; 80061; 81001; 84443; 85025; 87086; 88112

== ENCOUNTER 2025-02-03 11:12 | Outpatient (AMB) | payer OTHER, SELFPAY ==
[2025-02-03 11:14] VITALS: BP 126/78; PULSE 92; RESP 18; TEMP 36.8; O2SAT 97; BMI 32.4
--- NOTE | 2025-02-03 11:14 | MHC.PC.OV ---
Vital Signs 02/03/25 11:14 Height 5 ft 3 in Weight 183 lb BMI 32.4 BP 126/78 Blood Pressure Location Lt brachial Position Sitting Respiration 18 Pulse 92 Pulse Source Pulse Oximeter Temp 98.2 F Temp Source Oral Pulse Oximetry (%) 97 Oxygen Delivery Method Room Air Intake Visit Reasons: review kidney/urine labs/concerns Allergies Sulfa (Sulfonamide Antibiotics) (SULFA (SULFONAMIDE ANTIBIOTICS)) Allergy (Unknown, Verified 02/03/25 11:17) HIVES Medication List - Last Reconciled 02/03/25 by Melanie Beaulieu MD acetaminophen (Tylenol Extra Strength) 1,000 mg (2 x 500 mg) PO Q6H PRN albuterol sulfate 90 mcg/actuation 1 inh inhalation QID PRN ascorbic acid (vitamin C) mg PO DAILY cholecalciferol (vitamin D3) 50 mcg PO DAILY cyclobenzaprine mg PO PRN fluticasone propionate 50 mcg/actuation (Flonase Allergy Relief) 1 spray intranasal BID PRN magnesium oxide 400 mg PO DAILY melatonin 10 mg PO BEDTIME PRN olmesartan 10 mg (2 x 5 mg) PO DAILY polyethylene glycol 3350 (Miralax) 17 grams PO DAILY PRN Tobacco use date assessed: 02/03/25 Dental Screening Dental Screen Date: 11/07/24 HPI review kidney/urine labs/concerns HPI Details Pt presents for f/u GERD, diet controlled. Blood work and abdominal ultrasound results discussed with the patient. [facility] Medical History (Updated 02/03/25 @ 15:47 by Melanie Beaulieu MD) GERD (gastroesophageal reflux disease) Obesity Goiter Left foot pain Vitamin D deficiency Dysuria Overweight Normal pelvic exam Annual physical exam Hypertension Migraines Seasonal allergies Surgical History History of esophagogastroduodenoscopy (EGD) Hx of tubal ligation Hx of hernia repair Family History Mother Lupus Hypertension Father Hypertension High cholesterol Diabetes Maternal Aunt Osteoporosis Social History Household Members Other:: , 3 children 24-13, works in [employer] Housing: House Alcohol intake: current Alcohol intake frequency: holidays/special occasions only Patient Tobacco Use Status: Never used Tobacco e-Cigarette/Vaping Use: Never Used service: No Current occupational status: employed 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 Cognitive needs: No Hearing needs: No Vision needs: No Questionnaire Thrive Questionnaire Date Thrive assessed: 10/31/24 I am a: Patient What is your living situation today?: I have a steady place to live Within the past 12 months, did the food you bought not last and you didn't have the money to get more?: Never true Within the past 12 months, did you worry whether your food would run out before you got money to buy more?: Never true Do you have trouble paying for medicines?: No Do you have trouble getting transportation to medical appointments?: No Do you have trouble paying your heating and electricity bill?: No Do you have trouble taking care of your child, family member or friend?: No Do you have trouble with day-to-day activities such as bathing, preparing meals, shopping, managing finances, etc.?: I choose not to answer this question Are you currently unemployed and looking for a job?: No Are you interested in more education?: No Please select the resources that you would like help with: None Currently or been in a relationship where the following occur: No concerns reported THRIVE Score: 0 CLARK-7 AMB Questionnaire CLARK-7 Date CLARK - 7 assessed: 11/07/24 Source: Developed by Drs. Greg Mendoza, Charley Hunter, Ole Edge and colleagues, with an educational teresa from [employer]. Review of Systems Const All systems reviewed & are unremarkable except as noted in HPI and below Reports no additional complaints Eyes Reports no additional complaints ENT Reports no additional complaints Card Reports no additional complaints Resp Reports no additional complaints GI Reports no additional complaints Physical exam (Primary Care) Vital Signs: Last Vital Signs Temp 98.2 F 02/03/25 11:14 Pulse 92 02/03/25 11:14 Resp 18 02/03/25 11:14 BP 126/78 02/03/25 11:14 Pulse Ox 97 02/03/25 11:14 Oxygen Delivery Method Room Air 02/03/25 11:14 BMI result Body Mass Index 32.4 Tobacco/Smoking Status: Tobacco use Status Tobacco use date assessed 02/03/25 02/03/25 11:20 Patient Tobacco Use Status Never used Tobacco 02/03/25 11:20 e-Cigarette/Vaping Use Never Used 02/03/25 11:20 Thrive Assessment: Date of Thrive Assessment Date Thrive assessed 10/31/24 02/03/25 11:20 Currently or been in a relationship where the following occur: No concerns reported Const General: no acute distress HENMT Head: Yes normal to inspection Ears: hearing grossly normal bilaterally Mouth: Normal oral and palatal mucosa present Throat: Yes posterior oropharynx normal Eyes General: appearance normal, both eyes and all related structures Neck Neck: Yes no lymphadenopathy and Yes supple Resp Effort & Inspection: normal respiratory effort Auscultation: clear to auscultation bilaterally Cardio Rhythm: regular rhythm Heart sounds: S1 normal heart sound present and S2 normal heart sound present GI Inspection: Yes normal to inspection Palpation (GI): Soft to palpation Percussion: Yes normal to percussion Auscultation: normal bowel sounds Coding Level of Care Code Est Pt Level 3 (24627) Diagnoses Hypertension I10 Gastroesophageal reflux disease, unspecified whether esophagitis present K21.9 Esophagitis presence: esophagitis presence not specified Assessment & Plan Assessment & Plan (1) Hypertension: Code(s): I10 - Essential (primary) hypertension Category: Medical Plan: Continue olmesartan (2) GERD (gastroesophageal reflux disease): Comment: Negative EGD 2022, US abd negative 12/2024, diet controlled patient declined taking medications Code(s): K21.9 - Gastro-esophageal reflux disease without esophagitis Category: Medical Qualifiers: Esophagitis presence: esophagitis presence not specified Qualified Code(s): K21.9 - Gastro-esophageal reflux disease without esophagitis Plan: Continue anti GERD diet
--- OUTSIDE RECORDS SUMMARY | 2025-02-03 12:49 | XMS_ITS | Clinical Summary ---
Author Organization [facility] Address [address] [place] [address] Phone Support Name Relationship Address Phone David Damon Daughter 26 08/15 [place] [address] Avinash seaman Spouse [address] [place] [address] Care Team Providers Care Seo Associate Name Role Phone Rene Kurtz MD Primary Care Provider [phone] Allergies Active Allergy Reactions Criticality Noted Date [...] Migraine 05/09/2024 Overview (05/09/2024): Sees Neurology at [place] Obesity (BMI 30.0-34.9) 03/12/2019 Thoracic osteoarthritis 03/12/2019 Essential hypertension 02/20/2017 Gastroesophageal reflux disease 10/10/2016 Abdominal pain, chronic, epigastric 03/03/2014 Allergic rhinitis 05/28/2009 Encounters Date Type Department Care Team Description 12/10/2024 Telephone Obstetrics & Gynecology [address] [address] Sapna Servin RN lab work 12/09/2024 9:45 AM EDT Office Visit Obstetrics & Gynecology [address] [phone] Viri Pierce CNM Encounter for gynecological examination without abnormal finding (Primary Dx); Urinary tract infection with hematuria, site unspecified; Screen for STD (sexually transmitted disease); Overweight from Last 3 Months Immunizations Name Administration Dates Next Due DTP 10/26/1983, 9,06/06/1979,1978,02/06/1979 DTaP (Infanrix) 6wks to less than 7yo ,07/17/1979,06/06/1979,1978,02/06/1979 Hepatitis B (Zkrzamg-K-Cmefj , Recombivax HB-Adult) 19yo and older 10/16/2007,06/27/2007 [...] PROCEDURE: HISTORICAL TUBAL LIGATION ESOPHAGOGASTRODUODENOSCOPY 02/21/14 PROCEDURE: [place] ESOPHAGOGASTRODUODENOSCOPY TRANSORAL DIAGNOSTIC; COMMENT: normal BREAST LUMPECTOMY [...] care for your loved ones. For example, school childcare attendant or elderly care for an older adult? [...] oz) F Vag-S pont None Living Delivery Location:[place] 004 Term 38w 0d 3062 g (108 oz) M Vag-S pont None Living Delivery Location:[place] 008 Term 38w 0d 3402 g (120 oz) M Vag-S pont Living Delivery Location:[facility] Filed Vital Signs Vital Sign Reading [...] Routine 05/01/2023 HM HIV SCREENING Routine 05/01/2021 HEPATITIS C SCREENING Routine 02/17/2020 ANNUAL BMP BLOOD TEST Routine 05/14/2018 LIPID PANEL Routine 04/01/2018 from Last 3 Months or Most Recently Relevant to Health Maintenance Results * Trichomonas vaginalis antigen (12/09/2024 10:10 AM EDT) Trichomonas vaginalis Negative Negative 12/09/2024 1:31 PM EDT [facility] Vaginal Fluid Vaginal structure / Unknown Non-blood Collection / Unknown 12/09/2024 10:10 AM EDT 12/09/2024 12:26 PM EDT Viri HUERTA LAB MICROBIOLOGY - GENERAL ILENE WOO Final Result [facility] [address] [place] [address], * Chlamydia trachomatis and Neisseria gonorrhoeae molecular study (12/09/2024 10:10 AM EDT) Neisseria gonorrhoeae PCR Negative Negative LAB MOLECULAR DIAGNOSTICS METHOD 12/09/2024 2:47 PM EDT [facility] Chlamydia trachomatis PCR Negative Negative LAB MOLECULAR DIAGNOSTICS METHOD 12/09/2024 2:47 PM EDT [facility] Swab Cervix uteri structure / Unknown Non-blood Collection / Unknown 12/09/2024 10:10 AM EDT 12/09/2024 12:26 PM EDT [facility] LAB MICROBIOLOGY - GENERAL ORDE RABLES Final Result Performing Organization Address [facility]/ZIP Co de Phone Number [facility] [address] [place] [address], * Wet prep, genital (12/09/2024 10:10 AM EDT) Clue Cells, Wet Prep Negative Negative 12/09/2024 1:33 PM EDT [facility] Yeast, Wet Prep Negative Negative 12/09/2024 1:33 PM EDT [facility] Trichomonas, Wet Prep Indeterminate Negative 12/09/2024 1:33 PM EDT [facility] Comment:Refer to Trichomonas antigen. Vaginal Fluid Vaginal structure / Unknown Non-blood Collection / Unknown 12/09/2024 10:10 AM EDT 12/09/2024 12:26 PM EDT [facility] MICROBIOLOGY - GENERAL ORDE RABLES Final Result Performing Organization Address [facility]/[place] Co de Phone Number [facility] [address] [place] [address], * (ABNORMAL) Culture urine (12/09/2024 10:10 AM EDT) Culture, Urine 10,000-49,000 CFU/mL Escherichia coli(A) BELÉN 12/11/2024 11:44 AM EDT [facility] Urine Urine specimen obtained by clean catch procedure / Unknown Non-blood Collection / Unknown 12/09/2024 10:10 AM EDT 12/09/2024 12:27 PM EDT Narrative [facility] - 12/11/2024 11:44 AM EDT [...] Trimethoprim/Sulfamethoxazole BELÉN <=20 ug/ml: Susceptible Viri Pierce [facility] LAB MICROBIOLOGY - GENERAL ORDE AMNA Final Result [facility] [address] [place] [address], * (ABNORMAL) POC Urine Auto W/O Micro (12/09/2024 9:44 AM EDT) Leukocytes UA POC Positive(A) Negative Nitrite UA POC Negative Negative Urobilinogen UA POC Negative Negative Protein UA POC Positive(A) Negative PH UA POC 5.0 5.0 - 9.0 Blood UA POC Positive(A) Negative, Trace Specific [place] UA POC 1.025 1.001 - 1.035 Ketones UA POC Negative Negative Bilirubin UA POC Negative Negative Glucose UA POC Normal Normal, Trace Urine Urine specimen obtained by clean catch procedure / Unknown 12/09/2024 9:44 AM EDT Result [facility] Viri Pierce CNM POINT OF CARE TEST ENTER/EDIT O RDERABLES Final Result * MG Mammo Digital Diagnostic bilat (09/25/2024 8:18 AM EST) Anatomical Region Laterality Modality Breast Bilateral Mammography Result [facility] Provider IMG BI PROCEDURES Final R esult * Cervical Cancer Screening: HPV (05/01/2023) [facility] Cervical Cancer Screening: HPV negative,a bstracted Result [facility] Provider HEALTH MAINTENANCE Final Result * HIV Screening (05/01/2021) [facility] HIV Screening ABSTRACTED Result [facility] Provider HEALTH MAINTENANCE Final Result * Hepatitis C Screening (02/17/2020) [facility] Hepatitis C Screening ABSTRACTED Result [facility] Provider HEALTH MAINTENANCE Final Result * Annual BMP Blood Test (05/14/2018) [facility] Annual BMP Blood Test ABSTRACTED Result [facility] Provider HEALTH MAINTENANCE Final Result * (ABNORMAL) Lipid panel (04/01/2018) [facility] LDL/HDL Ratio 3 0 - 4 Triglycerides 117 0 - 150 mg/dL Cholesterol 117 0 - 200 mg/dL HDL 37(A) >=40 mg/dL LDL Cholesterol 57 0 - 100 mg/dL Blood Venous blood specimen / Unknown Result [facility] Historical Provider LAB BLOOD ORDERABLES Melissa l Result from Last 3 Months or Most Recently Relevant to Health Maintenance Insurance [employer] Care Teams Seo Associate Relationship Specialty Start Date End Date Rene Kurtz MD [address] [place] [id number] PCP - General 11/24/08
== END 2025-02-03 13:00 | disposition home or self-care (01) ==
LOC: HO.HMCC 11:12
PROVIDERS: PCP Internal Medicine; Visit Provider Internal Medicine
DX: I10 Essential (primary) hypertension (principal); K21.9 Gastro-esophageal reflux disease without esophagitis

== ENCOUNTER → 2025-02-03 11:12 | Outpatient (BNVA) | payer OTHER, SELFPAY | PROVIDERS: PCP Internal Medicine; Visit Provider Internal Medicine | DX: Z13.89 Encounter for screening for other disorder (principal) ==

== ENCOUNTER 2025-05-13 08:50 | Outpatient (AMB) | payer OTHER, SELFPAY ==
[2025-05-13 08:53] VITALS: BP 136/80; PULSE 65; RESP 18; TEMP 36.8; O2SAT 99; BMI 32.6
--- NOTE | 2025-05-13 08:53 | MHC.PC.OV ---
Vital Signs 05/13/25 08:53 Height 5 ft 3 in Weight 184 lb BMI 32.6 BP 136/80 Blood Pressure Location Lt brachial Position Sitting Respiration 18 Pulse 65 Pulse Source Pulse Oximeter Temp 98.3 F Temp Source Oral Pulse Oximetry (%) 99 Oxygen Delivery Method Room Air Intake Visit Reasons: 6 month follow up BP Intake Note: Pt is here today for 6 months follow up visit. Allergies Sulfa (Sulfonamide Antibiotics) (SULFA (SULFONAMIDE ANTIBIOTICS)) Allergy (Unknown, Verified 05/13/25 09:07) HIVES Medication List - Last Reconciled 05/13/25 by Melanie Beaulieu MD acetaminophen (Tylenol Extra Strength) 1,000 mg (2 x 500 mg) PO Q6H PRN albuterol sulfate 90 mcg/actuation 1 inh inhalation QID PRN ascorbic acid (vitamin C) mg PO DAILY cholecalciferol (vitamin D3) 50 mcg PO DAILY cyclobenzaprine mg PO PRN fluticasone propionate 50 mcg/actuation (Flonase Allergy Relief) 1 spray intranasal BID PRN magnesium oxide 400 mg PO DAILY melatonin 10 mg PO BEDTIME PRN olmesartan 10 mg (2 x 5 mg) PO DAILY polyethylene glycol 3350 (Miralax) 17 grams PO DAILY PRN Tobacco use date assessed: 05/13/25 Dental Screening Dental Screen Date: 11/07/24 HPI 6 month follow up BP HPI Details Pt presents for f/u HTN. Pt c/o nasal congestion on and off runny nose and sneezing getting worse in the fall. Patient has been decreasing caloric intake and increasing physical activity for over 6 months trying to lose weight. She tried weight watchers. [facility] Medical History GERD (gastroesophageal reflux disease) Obesity Goiter Left foot pain Vitamin D deficiency Dysuria Overweight Normal pelvic exam Annual physical exam Hypertension Migraines Seasonal allergies Surgical History History of esophagogastroduodenoscopy (EGD) Hx of tubal ligation Hx of hernia repair Family History Mother Lupus Hypertension Father Hypertension High cholesterol Diabetes Maternal Aunt Osteoporosis Social History (Reviewed 05/13/25 @ 09:21 by YAMILETH Buenrostro Household Members Other:: , 3 children 24-13, works in [employer] Housing: House Alcohol intake: current Alcohol intake frequency: holidays/special occasions only Patient Tobacco Use Status: Never used Tobacco e-Cigarette/Vaping Use: Never Used service: No Current occupational status: employed 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 1. Little interest or pleasure in doing things: not at all 2. Feeling down, depressed, or hopeless: not at all 3. Trouble falling or staying asleep, or sleeping too much: not at all 4. Feeling tired or having little energy: more than half the days 5. Poor appetite or overeating: not at all 6. Feeling bad about yourself - or that you are a failure or have let yourself or your family down: not at all 7. Trouble concentrating on things, such as reading the newspaper or watching television: not at all 8. Moving or speaking so slowly that other people could have noticed. Or the opposite - being so fidgety or restless that you have been moving around a lot more than usual: not at all 9. Thoughts that you would be better off or of hurting yourself in some way: not at all Total score: 2 Depression Screening Interpretation: Negative Depression Screening Done: Yes Source: Developed by Drs. Greg Mendoza, Charley Hunter, Ole Edge and colleagues, with an educational teresa from [employer]. Thrive Questionnaire Date Thrive assessed: 10/31/24 I am a: Patient What is your living situation today?: I have a steady place to live Within the past 12 months, did the food you bought not last and you didn't have the money to get more?: Never true Within the past 12 months, did you worry whether your food would run out before you got money to buy more?: Never true Do you have trouble paying for medicines?: No Do you have trouble getting transportation to medical appointments?: No Do you have trouble paying your heating and electricity bill?: No Do you have trouble taking care of your child, family member or friend?: No Do you have trouble with day-to-day activities such as bathing, preparing meals, shopping, managing finances, etc.?: I choose not to answer this question Are you currently unemployed and looking for a job?: No Are you interested in more education?: No Please select the resources that you would like help with: None Currently or been in a relationship where the following occur: No concerns reported THRIVE Score: 0 CLARK-7 AMB Questionnaire CLARK-7 Date CLARK - 7 assessed: 11/07/24 Feeling nervous, anxious, or on edge: 0 = Not at all Not being able to stop or control worryin = Not at all Worrying too much about different things: 0 = Not at all Trouble relaxin = Not at all Being so restless that it is hard to sit still: 0 = Not at all Becoming easily annoyed or irritable: 0 = Not at all Feeling afraid as if something awful might happen: 0 = Not at all Total CLARK-7 score (0-4 normal; 5-9 mild; 10-14 moderate; 15-21 severe): 0 Source: Developed by Drs. Greg Mendoza, Charley Hunter, Ole Edge and colleagues, with an educational teresa from [employer]. Review of Systems Const All systems reviewed & are unremarkable except as noted in HPI and below Eyes Reports no additional complaints ENT Reports no additional complaints Card Reports no additional complaints Resp Reports no additional complaints GI Reports no additional complaints Reports no additional complaints Physical exam (Primary Care) Vital Signs: Last Vital Signs Temp 98.3 F 05/13/25 08:53 Pulse 65 05/13/25 08:53 Resp 18 05/13/25 08:53 BP 136/80 05/13/25 08:53 Pulse Ox 99 05/13/25 08:53 Oxygen Delivery Method Room Air 05/13/25 08:53 BMI result Body Mass Index 32.6 Tobacco/Smoking Status: Tobacco use Status Tobacco use date assessed 05/13/25 05/13/25 08:55 Patient Tobacco Use Status Never used Tobacco 05/13/25 08:55 e-Cigarette/Vaping Use Never Used 05/13/25 08:55 PHQ-9: PHQ-9 Score PHQ-9: Total score 2 05/13/25 09:33 Depression Screening Interpretation: Negative Thrive Assessment: Date of Thrive Assessment Date Thrive assessed 10/31/24 05/13/25 08:55 Currently or been in a relationship where the following occur: No concerns reported Const General: no acute distress HENMT Head: Yes normal to inspection Ears: TM's normal bilaterally General nose exam: No nasal discharge present Face and sinus: Yes normal facial exam Mouth: Normal oral and palatal mucosa present Resp Effort & Inspection: normal respiratory effort Auscultation: clear to auscultation bilaterally Cardio Rhythm: regular rhythm Heart sounds: S1 normal heart sound present and S2 normal heart sound present GI Inspection: Yes normal to inspection Coding Level of Care Code Est Pt Level 4 (75362) Diagnoses Hypertension I10 Overweight E66.3 Other forms of systemic lupus erythematosus, unspecified organ involvement status M32.8 Systemic lupus erythematosus type: other Systemic lupus erythematosus organ involvement: unspecified Assessment & Plan Assessment & Plan (1) Hypertension: Code(s): I10 - Essential (primary) hypertension Category: Medical Plan: Increase olmesartan to 15 mg a day, continue low-sodium diet increase physical activity and weight loss, follow-up in 3 months (2) Overweight: Comment: BMI 32.6 04/2025 Code(s): E66.3 - Overweight Category: Medical Plan: Decreasing caloric intake increasing physical activity discussed with the patient. She will check with her health insurance coverage for GLP 1 agonist (3) SLE (systemic lupus erythematosus): Comment: Diagnosed 05/2022 +ve HELEN, + dsDNA, arthralgias, fatigue, skin rashes Started on Plaquenil 05/2022 DC 08/2022 due to GI upset, established with cardiothoracic anesthesia technician, no active disease Code(s): M32.9 - Systemic lupus erythematosus, unspecified Category: Medical Qualifiers: Systemic lupus erythematosus type: other Systemic lupus erythematosus organ involvement: unspecified Qualified Code(s): M32.8 - Other forms of systemic lupus erythematosus Plan: Follow-up with cardiothoracic anesthesia technician annually Medications: New cetirizine (Zyrtec) 10 mg PO DAILY PRN 90 tabs 1RF allergy symptoms Changed From olmesartan 10 mg (2 x 5 mg) PO DAILY 180 tabs 1RF To olmesartan 15 mg (3 x 5 mg) PO DAILY 240 tabs 1RF Refilled olmesartan 15 mg (3 x 5 mg) PO DAILY 240 tabs 1RF albuterol sulfate 90 mcg/actuation 1 inh inhalation QID PRN 8.5 grams 1RF shortness of breath or wheezing fluticasone propionate 50 mcg/actuation (Flonase Allergy Relief) 1 spray intranasal BID PRN 16 grams 0RF nasal congestion J30.9 - Allergic rhinitis, unspecified
== END 2025-05-13 09:52 | disposition home or self-care (01) ==
LOC: HO.HMCC 08:51
PROVIDERS: PCP Internal Medicine; Visit Provider Internal Medicine
DX: I10 Essential (primary) hypertension (principal); E66.3 Overweight; M32.8 Other forms of systemic lupus erythematosus

== ENCOUNTER 2025-07-02 08:55 | Outpatient (REF) | payer OTHER, SELFPAY ==
[2025-07-02 10:20] LABS: Appearance Urine Clear; Glucose Urine UA Negative (Negative); PH 6.0 (5.0-9.0); Specific Gravity - Urine 1.020 (1.005-1.025)
[2025-07-02 10:35] LABS: MANUAL DIFF FLAG NO
[2025-07-02 10:40] LABS: Hematocrit 41.6 % (37.0-47.0); Hemoglobin 14.0 g/dl (12.0-16.0); Imm Gran Abs Auto 0.03 X10*3/uL (0.00-0.03); Imm Gran Pct Auto 0.3 % (0.0-0.4); Lymphocytes Absolute Auto 2.5 X10*3/uL (1.2-4.9); Mean Corpuscular HGB Conc 33.7 g/dl (31.0-35.0); Mean Corpuscular Hemoglobin 30.0 pg (27.0-33.0); Mean Corpuscular Volume 89.3 fL (80.0-98.0); NRBC Abs Auto 0.000 X10*3/uL (0.0-0.012); NRBC Pct Auto 0.0 /100WBC (0.0-0.2); Platelet Count 252 X10*3/uL (160-400); Red Blood Count 4.66 X10*6/uL (4.20-5.50); White Blood Count 9.1 X10*3/uL (4.8-10.8)
[2025-07-02 11:32] LABS: Alanine Aminotransferase 16 U/L (0-31); Albumin Level 4.2 g/dL (3.5-5.0); Alkaline Phosphatase 24 U/L (39-117); Anion Gap 11 (12-20); Aspartate Amino Transferase 23 U/L (5-31); Blood Urea Nitrogen 17 mg/dL (9-16); Calcium 9.0 mg/dL (8.4-10.2); Carbon Dioxide 26 mmol/L (22-29); Chloride 104 mmol/L (96-108); Estimated Glomerular Filt Rate > 60; Potassium 3.9 mmol/L (3.3-5.1); Sodium 137 mmol/L (135-145); Total Protein 7.6 g/dL (6.5-8.0); Total Protein Urine Random < 7 mg/dL (<12)
== END 2025-07-02 08:56 | disposition home or self-care (01) ==
LOC: HO.HMGCLDS 08:55
PROVIDERS: PCP Internal Medicine; Visit Provider Student in an Organized Health Care Education/Training Program
DX: M32.8 Other forms of systemic lupus erythematosus (principal)
CPT/HCPCS: 36415; 80053; 81001; 82570; 84156; 85025; 85652; 86140; 86160; 86225

== ENCOUNTER 2025-07-25 07:57 | Outpatient (AMB) | payer OTHER, SELFPAY ==
--- NOTE | 2025-07-25 08:04 | A.OFFVIS_ITS ---
Vital Signs 07/25/25 08:13 Height 5 ft 3 in Weight 181 lb 7.047 oz BMI 32.1 BP 140/80 H Blood Pressure Location Lt brachial Position Sitting Pulse 78 Pulse Source Pulse Oximeter Pulse Oximetry (%) 98 Oxygen Delivery Method Room Air Intake Visit Reasons: SLE Intake Note: Patient presents today for SLE follow up and test results. 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 Yang - Not on any DMARDs - She states that she feels well same overall. - She has been watching her diet, she has been exercising more. - She has lost about 10 lb. She continues to have some swelling and stiffness of her fingers especially throughout the night and in the morning. - Morning stiffness lasting 2 hours. She has to take her rings off every night. Her fingers improve after about 2 hours. - She also gets intermittent pain and stiffness of her knees especially with going up and down the stairs. She gets bilateral knee pain with going up and down the stairs. She denies any skin rashes. - Denies any mouth ulcers or blood or frothy in the urine. - Patient preferred to be monitored off DMARDs Today - Not on any DMARDs - She has been followed for over two years for possible early-stage lupus due to abnormal blood work, though a definitive diagnosis has not been made. - She reports that hydroxychloroquine was prescribed previously as a preventive measure, but she decided not to take it due to an aversion to medications and her mother's negative experience with lupus treatments. - She has a family history of lupus in her mother. - She experiences joint pain, primarily in her fingers and knees, which is worse in the mornings and in cold weather, but improves with activity throughout the day. - She notes some swelling in her hands in the morning that resolves. - She occasionally takes Aleve for the pain but mostly forgoes medication. - Her past medical history is significant for hypertension, for which she takes medication, and a history of migraines, which have not occurred recently. - She denies any history of alopecia, oral or nasal ulcers, or rashes. - She is currently perimenopausal and reports difficulty losing weight despite working out four times a week, including walking and muscle exercises, and improving her diet by avoiding sugar and processed foods. - She has noticed a decrease of one pants size, suggesting a change in body composition. Rheumatologic History: Diagnosed 05/2022 +ve HELEN, + dsDNA, arthralgias, fatigue, skin rashes Started on Plaquenil 05/2022 DC 08/2022 due to GI upset Initial history: This is a 41-year-old female with a past medical history of hypertension and seasonal allergies was referred for evaluation of a positive HELEN. Patient has been evaluated by Rheumatology before for positive HELEN but no diagnosis or medication was started. Her mother had SLE and at 46. She has had intermittent pain and swelling of her hands over the last few years with varying severity. She has pain swelling and stiffness of her fingers mostly in the morning. Morning stiffness last at least 1 hour. She had to change her ring size last month as it became too tight. Over the last few months or so she has been having worsening fatigue, she was diagnosed with COVID in November and since then she has had fatigue. She also has bilateral knee pain worse with going up and down the stairs. She also has random pain of her calf muscles. Denies any significant muscle weakness. She mentions having some skin rash on her face. Denies photosensitivity. She has dry mouth in the morning which imp roves throughout the day. Patient denies Raynaud's, photosensitivity, oral or nasal ulcers, , fevers, alopecia, history of miscarriage. Current Rheumatology Medication(s): [facility] Medical History GERD (gastroesophageal reflux disease) Obesity Goiter Left foot pain Vitamin D deficiency Dysuria Overweight Normal pelvic exam Annual physical exam Hypertension Migraines Seasonal allergies Surgical History History of esophagogastroduodenoscopy (EGD) Hx of tubal ligation Hx of hernia repair Family History Mother Lupus Hypertension Father Hypertension High cholesterol Diabetes Maternal Aunt Osteoporosis Social History Household Members Other:: , 3 children 24-13, works in [employer] Housing: House Alcohol intake: current Alcohol intake frequency: holidays/special occasions only Patient Tobacco Use Status: Never used Tobacco e-Cigarette/Vaping Use: Never Used service: No Current occupational status: employed 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 - Reports mild hand swelling in the mornings. - Reports lateral hip pain when sleeping on her side. - Integumentary: Denies rashes. - Denies alopecia or bald spots. - HEENT: Denies ulcers in the nose or mouth. - Neurological: Denies recent history of migraines. - Genitourinary: Reports feeling she urinates less often than she used to. - Endocrine: Reports being in perimenopause. All other systems reviewed and are unremarkable except noted above Physical Exam Exam Exam: Vital signs reviewed Physical Examination CONSTITUITIONAL Patient alert and cooperative. Well appearing and in no apparent painful distress MSK Hands * Right Hand: Able to make a fist. No swelling or tenderness to palpation of the MCPs, PIPs or DIPs. No deformities noted. * Left Hand: Able to make a fist. No swelling or tenderness to palpation of the MCPs, PIPs or DIPs. No deformities noted. Wrists * Right Wrist: Full ROM to flexion and extension. No swelling or TTP * Left Wrist: Full ROM to flexion and extension. No swelling or TTP Elbows * Right Elbow: Full ROM. No swelling or TTP. No TTP of the medial epicondyle. No TTP of the lateral epicondyle * Left Elbow: Full ROM. No swelling or TTP. No TTP of the medial epicondyle. No TTP of the lateral epicondyle Shoulders * Right shoulder: Full ROM. No swelling noted. No TTP of the AC joint. No TTP of the subacromial bursa. No TTP of the posterior shoulder * Left shoulder: Full ROM. No swelling noted. No TTP of the AC joint. No TTP of the subacromial bursa. No TTP of the posterior shoulder Hips * Right hip: Good ROM. No pain elicited with hip flexion/internal rotation/external rotation * Left hip: Good ROM. No pain elicited with hip flexion/internal rotation/external rotation Hip bursa: No tenderness to palpation bilaterally Knees * Right knee: Full ROM. No swelling noted. No TTP of the knee joint line. No TTP of pes anserine bursa * Left knee: Full ROM. No swelling noted. No TTP of the knee joint line. No TTP of pes anserine bursa. Ankles * Right ankle: Good ankle dorsiflexion and plantar flexion. No swelling. No TTP of the ankle joint * Left ankle: Good ankle dorsiflexion and plantar flexion. No swelling. No TTP of the ankle joint Feet * Right foot: Negative squeeze test * Left foot: Negative squeeze test Tender points? * No tenderness to palpation of the bilateral trapezius, supraspinatus, anterior costochondral junctions, bilateral suboccipital muscle insertions SKIN No rashes Results Reviewed Results Reviewed: Laboratory Tests 01/23/25 07/02/25 09:50 08:59 WBC 9.1 RBC 4.66 Hgb 14.0 Hct 41.6 Plt Count 252 ESR 11 Sodium 137 Potassium 3.9 Chloride 104 Carbon Dioxide 26 BUN 17 H Creatinine 0.86 AST 23 ALT 16 Alkaline Phosphatase 18 L 24 L C-Reactive Protein 0.31 Laboratory Tests 06/20/24 07/02/25 09:02 08:59 Double Strand DNA Ab 15 H 17 H Complement C3 154 145 Complement C4 27 24 Laboratory Tests 07/02/25 08:59 Urine Color Yellow Urine Appearance Clear Urine pH 6.0 Ur Specific [place] 1.020 Urine Protein Negative Urine Blood Negative U Random Total Protein < 7 Laboratory Tests 03/31/22 05/06/22 10:50 07:52 Rheumatoid Factor < 15.0 Cycl Citrul Peptide IgG <16 HELEN Screen POSITIVE A HELEN Titer 1:320 H SS-A/Ro Antibody <1.0 NEG SS-B/La Antibody <1.0 NEG Sm (Alves) Antibody <1.0 NEG SM/WIRE STRAIGHTENER IgG Antibody <1.0 NEG XR Bilateral Hands and Wrists 04/2022 FINDINGS: Right: Bone alignment is normal. No fracture or dislocation is seen. Joint spaces are normal. Soft tissues are normal. Left: Bone alignment is normal. No fracture or dislocation is seen. Joint spaces are normal. Soft tissues are normal. IMPRESSION: Unremarkable exam. Assessment & Plan Assessment & Plan (1) SLE (systemic lupus erythematosus): Comment: Diagnosed 05/2022 +ve HELEN, + dsDNA, arthralgias, fatigue, skin rashes Started on Plaquenil 05/2022 DC 08/2022 due to GI upset, established with broadcast systems engineer, no active disease Code(s): M32.9 - Systemic lupus erythematosus, unspecified Category: Medical Qualifiers: Systemic lupus erythematosus type: other Systemic lupus erythematosus organ involvement: unspecified Qualified Code(s): M32.8 - Other forms of systemic lupus erythematosus Plan: #UCTD vs SLE Patient is a 44-year-old female here today for follow up The patient presents with serological abnormalities including a positive HELEN and fluctuating anti-dsDNA antibody, along with a significant family history of lupus, but lacks clinical criteria for a definitive diagnosis of systemic lupus erythematosus. She denies muñoz symptoms such as alopecia, oral ulcers, and rashes, and her recent urinalysis showed no evidence of renal involvement. Given the absence of clinical manifestations, the risks of initiating immunosuppressive therapy like hydroxychloroquine outweigh the potential benefits. The plan is to continue monitoring with annual follow-up visits. Repeat blood work will be ordered to be completed about three weeks prior to her next appointment. The patient was educated about the genetic predisposition and the 'second hit' hypothesis related to the development of autoimmune diseases. Plan - No indication for DMARDs - RTC 1 year - Labs before visit: CBC, CMP, ESR, CRP, C3, C4, dsDNA, UA, UPC (2) Arthralgia: Code(s): M25.50 - Pain in unspecified joint Qualifiers: Joint pain location: unspecified Qualified Code(s): M25.50 - Pain in unspecified joint Plan: #Arthralgias The patient reports morning pain and stiffness in her fingers and knees, which improves with activity, suggestive of an inflammatory arthralgia. This could represent an early manifestation of her underlying connective tissue disease or a separate condition like osteoarthritis. Previous X-rays of her hands from 2021 were normal. For management, conservative measures are recommended, including as-needed use of fhxf-hdt-xyaxuct NSAIDs like ibuprofen or naproxen. Prescription options such as meloxicam or Celebrex were offered, but the patient deferred at this time. Bilateral knee X-rays will be ordered to establish a baseline and evaluate for degenerative changes; the order is valid for one year. Plan - XR Bilateral knees Plan I discussed with the patient that although her lab work shows some serologic markers associated with lupus (positive HELEN, positive anti-dsDNA) and she has a family history, she does not currently meet the clinical criteria for a definitive diagnosis. I explained that her normal urinalysis and complement levels, along with the absence of rashes, alopecia, or oral ulcers, are reassuring. I validated her decision not to take hydroxychloroquine at this time, agreeing that the risks do not outweigh the benefits in the absence of clear disease manifestations. We talked about her joint pain and agreed on a conservative approach, continuing with [id number] medications like Aleve as needed. I advised her that if symptoms worsen significantly, we could reconsider prescription anti- inflammatories. I ordered bilateral knee X-rays to get a baseline image. I explained that her hip pain when lying on her side is likely bursitis, which can be managed with stretching and cold packs. I also provided education on her weight management challenges related to perimenopause, recommending a focus on muscle-building exercises. The plan is to see her for follow-up in one year, with repeat blood work to be done prior to the visit. This is my first visit with this patient. I spent 45 minutes reviewing the record and labs, taking a history, examining the patient, explaining the disease process, answering questions, discussing the treatment plan, ordering diagnostic work up and documenting in the medical record Orders: Orders Protein Creatinine Ratio, Ur 1 Year M32.9 - Systemic lupus erythematosus, unspecified UA ClnCatch+Micro w/rflx Cult 1 Year M32.9 - Systemic lupus erythematosus, unspecified C Reactive Protein 1 Year M32.9 - Systemic lupus erythematosus, unspecified Comprehensive Met. Panel 1 Year M32.9 - Systemic lupus erythematosus, unspecified XR knee RT 3V Today M25.561 - Pain in right knee, M25.562 - Pain in left knee XR knee LT 3V Today M25.561 - Pain in right knee, M25.562 - Pain in left knee Complete Blood Count Auto Diff 1 Year M32.9 - Systemic lupus erythematosus, unspecified Erythrocyte Sedimentation Rate 1 Year M32.9 - Systemic lupus erythematosus, unspecified Complement C3 1 Year M32.9 - Systemic lupus erythematosus, unspecified Complement C4 1 Year M32.9 - Systemic lupus erythematosus, unspecified Anti DNA DS Antibody 1 Year M32.9 - Systemic lupus erythematosus, unspecified Coding Level of Care Code Est Pt Level 5 (77901) Add On Problem Visit Only Diagnoses Other forms of systemic lupus erythematosus, unspecified organ involvement status M32.8 Systemic lupus erythematosus type: other Systemic lupus erythematosus organ involvement: unspecified Arthralgia, unspecified joint M25.50 Joint pain location: unspecified
[2025-07-25 08:13] VITALS: BP 140/80; PULSE 78; O2SAT 98; BMI 32.1
== END 2025-07-25 08:56 | disposition home or self-care (01) ==
LOC: HO.RHES 07:58
PROVIDERS: PCP Internal Medicine; Visit Provider Student in an Organized Health Care Education/Training Program
DX: M32.8 Other forms of systemic lupus erythematosus (principal); M25.59 Pain in other specified joint
CPT/HCPCS: 99215; G2211